=== PATIENT | female | born 1945 ===

== ENCOUNTER 2016-10-20 12:12 | Emergency (ER) | payer MEDICARE, OTHER ==
[2016-10-20 12:17] VITALS: TEMP 98
[2016-10-20 12:18] VITALS: BMI 39.8
--- NOTE | 2016-10-20 12:37 | ED PDOC ---
HPI: General Adult Time Seen by Provider: 10/20/16 12:26 Chief Complaint (Nursing): Chest Pain Chief Complaint (Provider): palpitations History Per: Patient History/Exam Limitations: no limitations Additional Complaint(s): 71yo female comes to the ED complaining of palpitations since yesterday. States this has happened in the past. Denies shortness of breath. Unchanged after walking. She had nausea yesterday but not today. No vomit, neck pain. Patient thinks she might be anxious today but denies depression. PMD: Jaron Major Cardiology: Harry Past Medical History Reviewed: Historical Data, Nursing Documentation, Vital Signs Vital Signs: Last Vital Signs Temp 98.0 F 10/20/16 12:17 Pulse 74 10/20/16 12:26 Resp 16 10/20/16 12:17 BP 134/69 10/20/16 12:17 Pulse Ox 100 10/20/16 13:43 - Medical History PMH: Asthma, Atrial Fibrillation, Back Problems, Bronchitis, Cardia Arrhythmia, CVA (with right-sided deficit), Dementia (per old chart), Diabetes, HTN, Hypercholesterolemia, Malignancy (ovarian cancer x2), Seizures (last was 1 year ago) Denies: Hepatitis, HIV, Chronic Kidney Disease, Sexually Transmitted Disease - Surgical History Surgical History: Appendectomy, Cholecystectomy - Family History Family History: States: Unknown Family Hx - Immunization History Hx Influenza Vaccination: Yes - Home Medications Home Medications: Ambulatory Orders Medication Instructions Recorded Albuterol Sulfate [Proair 90 mcg IH PRN PRN 06/02/16 Respiclick] Amiodarone [Cordarone] 200 mg PO DAILY 06/02/16 Amlodipine/Valsartan [Exforge 5 1 tab PO DAILY 06/02/16 mg-160 mg] Ammonium Lactate 12% [Lac-Hydrin] 1 appl TP BID 06/02/16 Atorvastatin Calcium 10 mg PO DAILY 06/02/16 Carvedilol [Coreg] 25 mg PO Q12 06/02/16 Fluticasone/Salmeterol 250/50 1 dsk IH PRN PRN 06/02/16 [Advair Diskus] Gabapentin [Neurontin] 300 mg PO TID 06/02/16 Insulin Glargine, Recombina 1 unit SC HS 06/02/16 [Lantus] Insulin Human Isophane (NPH) 15 unit SC BID 06/02/16 [Novolin N] LORazepam [Ativan] 1 mg PO Q12 06/02/16 Levetiracetam [Keppra] 1,000 mg PO Q12 06/02/16 Metformin HCl [Glucophage] 1,000 mg PO BID 06/02/16 Omeprazole 20 mg PO DAILY 06/02/16 Phenazopyridine HCl [Pyridium] 100 mg PO TID 06/02/16 Rivaroxaban [Xarelto] 20 mg PO DAILY 06/02/16 - Allergies Allergies/Adverse Reactions: Allergies Allergy/AdvReac Type Severity Reaction Status Date / Time No Known Allergies Allergy Verified 08/31/16 09:52 Review of Systems ROS Statement: Except As Marked, All Systems Reviewed And Found Negative Cardiovascular: Positive for: Palpitations Respiratory: Negative for: Shortness of Breath Gastrointestinal: Positive for: Nausea. Negative for: Vomiting Musculoskeletal: Negative for: Neck Pain Psych: Negative for: Depression Physical Exam - Reviewed Nursing Documentation Reviewed: Yes Vital Signs Reviewed: Yes - Physical Exam Appears: Positive for: Well, Non-toxic, No Acute Distress Head Exam: Positive for: ATRAUMATIC, NORMAL INSPECTION, NORMOCEPHALIC Skin: Positive for: Warm, Dry Eye Exam: Positive for: EOMI, PERRL Cardiovascular/Chest: Positive for: Regular Rate, Rhythm Respiratory: Positive for: Normal Breath Sounds. Negative for: Rales, Rhonchi, Wheezing Gastrointestinal/Abdominal: Positive for: Normal Exam, Soft. Negative for: Tenderness Extremity: Positive for: Normal ROM - Laboratory Results Result Diagrams: 10/20/16 12:48 10/20/16 12:48 - ECG O2 Sat by Pulse Oximetry: 100 (RA) Pulse Ox Interpretation: Normal Medical Decision Making Medical Decision Makin EKG, labs ordered. Disposition - Clinical Impression Clinical Impression: Heart palpitations - Patient ED Disposition Is Patient to be Admitted: No Doctor Will See Patient In The: Office Counseled Patient/Family Regarding: Diagnosis, Need For Followup - Disposition Referrals: [facility] [Outside] [facility] [Outside] Disposition: Routine/Home Disposition Time: 14:19 Condition: STABLE Instructions: Palpitations (ED) Print Language: SAMI - POA Present On Arrival: None Additional Comments - Additional Comments Additional Comments: Scribe Attestation: Documented by Abe Koehler acting as a scribe for Iman Coy MD. Provider Scribe Attestation: All medical record entries made by the Scribe were at my direction and personally dictated by me. I have reviewed the chart and agree that the record accurately reflects my personal performance of the history, physical exam, medical decision making, and the department course for this patient. I have also personally directed, reviewed, and agree with the discharge instructions and disposition.
[2016-10-20 13:18] LABS: BLOOD UREA NITROGEN 14 mg/dl (7-17); CALCIUM 10.4 mg/dL (8.4-10.2); CARBON DIOXIDE 27 mmol/L (22-30); CHLORIDE 102 mmol/L (98-107); GFR AFRICAN-AMERICAN > 60; GLUCOSE,RANDOM 175 mg/dL (65-105); POTASSIUM 4.3 MMOL/L (3.6-5.0); SODIUM 143 mmol/l (132-148)
[2016-10-20 13:24] LABS: BASO # 0.1 K/uL (0.0-0.2); BASO % 0.6 % (0.0-2.0); EOS # 0.1 K/uL (0.0-0.7); EOS % 1.1 % (0.0-4.0); HEMATOCRIT 42.5 % (34.0-47.0); LYMPH # 2.2 K/uL (1.0-4.3); LYMPH % 18.9 % (20.0-40.0); MEAN CELL VOLUME 89.7 fl (81.0-99.0); MEAN CORPUSCULAR HEMOGLOBIN 29.6 pg (27.0-31.0); MEAN CORPUSCULAR HGB CONC 32.9 g/dL (33.0-37.0); MEAN PLATELET VOLUME 8.9 fl (7.2-11.7); MONO # 0.8 K/uL (0.0-0.8); MONO % 7.1 % (0.0-10.0); NEUT # 8.6 K/uL (1.8-7.0); NEUT % 72.3 % (50.0-75.0); NRBC % 0.1 % (0.0-0.0); RED CELL DISTRIBUTION WIDTH 13.2 % (11.5-14.5); WHITE BLOOD COUNT 11.9 K/uL (4.8-10.8)
[2016-10-20 14:29] VITALS: BP 132/62; PULSE 64; RESP 18; O2SAT 99
--- NOTE | 2016-10-21 08:26 | CARD ---
APPROVED REPORT EKG Measurement Heart [id number] <Conclusion> Sinus rhythm with 1st degree AV block Left axis deviation Low voltage QRS Septal infarct, age undetermined Abnormal ECG
== END 2016-10-20 14:29 | disposition home or self-care (01) ==
LOC: H.ER 12:12
DX: R00.2 Palpitations (principal); R07.9 Chest pain, unspecified; E11.9 Type 2 diabetes mellitus without complications; E78.00 Pure hypercholesterolemia, unspecified; F03.90 Unspecified dementia, unspecified severity, without behavioral disturbance, psychotic disturbance, mood disturbance, and anxiety; I10 Essential (primary) hypertension; I44.0 Atrioventricular block, first degree; J45.909 Unspecified asthma, uncomplicated; Z79.01 Long term (current) use of anticoagulants; Z79.4 Long term (current) use of insulin; Z85.43 Personal history of malignant neoplasm of ovary; Z86.73 Personal history of transient ischemic attack (TIA), and cerebral infarction without residual deficits; R11.0 Nausea

== ENCOUNTER 2016-11-23 12:26 | Observation (INO) | payer MEDICARE, OTHER ==
[2016-11-23 12:26] VITALS: BMI 39.8
[2016-11-23] MEDS ORDERED: Iohexol 240 (50 ml) ONE (13:32)
[2016-11-23] MEDS ORDERED: Iohexol 240 (50 ml) PO ONE (13:33)
[2016-11-23] MEDS ORDERED: Sodium Chloride 0.9% 1,000 ML IV ONE (13:35)
--- NOTE | 2016-11-23 13:53 | ED PDOC ---
HPI: Abdomen Time Seen by Provider: 11/23/16 12:43 Chief Complaint (Nursing): Abdominal Pain History Per: Patient History/Exam Limitations: no limitations Onset/Duration Of Symptoms: Gradual (since last night) Current Symptoms Are (Timing): Still Present Severity: Mild Location Of Pain/Discomfort: Diffuse Quality Of Discomfort: Dull Associated Symptoms: Nausea, Vomiting. denies: Fever, Chills, Diarrhea, Back Pain, Chest Pain, Constipation, Urinary Symptoms Exacerbating Factors: None Alleviating Factors: None Last Bowel Movement: Today Additional History Per: Patient Additional Complaint(s): brought in by ems c/o abd pain and vomited x7 since last. diffuse crampy abd pain. pt's son was admitted in hospital last night for same complaints. no trauma Past Medical History Reviewed: Historical Data, Nursing Documentation, Vital Signs Vital Signs: Last Vital Signs Temp 98.4 F 11/23/16 12:30 Pulse 85 11/23/16 12:30 Resp 19 11/23/16 12:30 BP 159/76 H 11/23/16 12:30 Pulse Ox 98 11/23/16 15:10 - Medical History PMH: Asthma, Atrial Fibrillation, Back Problems, Bronchitis, Cardia Arrhythmia, CVA (with right-sided deficit), Dementia (per old chart), Diabetes, HTN, Hypercholesterolemia, Malignancy (ovarian cancer x2), Seizures (last was 1 year ago) Denies: Hepatitis, HIV, Chronic Kidney Disease, Sexually Transmitted Disease - Surgical History Surgical History: Appendectomy, Cholecystectomy - Family History Family History: States: Unknown Family Hx - Living Arrangements Living Arrangements: With Family - Social History Current smoker - smoking cessation education provided: No - Immunization History Hx Influenza Vaccination: Yes - Home Medications Home Medications: Ambulatory Orders Medication Instructions Recorded Albuterol Sulfate [Proair 90 mcg IH PRN PRN 06/02/16 Respiclick] Amiodarone [Cordarone] 200 mg PO DAILY 06/02/16 Amlodipine/Valsartan [Exforge 5 1 tab PO DAILY 06/02/16 mg-160 mg] Ammonium Lactate 12% [Lac-Hydrin] 1 appl TP BID 06/02/16 Atorvastatin Calcium 10 mg PO DAILY 06/02/16 Carvedilol [Coreg] 25 mg PO Q12 06/02/16 Fluticasone/Salmeterol 250/50 1 dsk IH PRN PRN 06/02/16 [Advair Diskus] Gabapentin [Neurontin] 300 mg PO TID 06/02/16 Insulin Glargine, Recombina 1 unit SC HS 06/02/16 [Lantus] Insulin Human Isophane (NPH) 15 unit SC BID 06/02/16 [Novolin N] LORazepam [Ativan] 1 mg PO Q12 06/02/16 Levetiracetam [Keppra] 1,000 mg PO Q12 06/02/16 Metformin HCl [Glucophage] 1,000 mg PO BID 06/02/16 Omeprazole 20 mg PO DAILY 06/02/16 Phenazopyridine HCl [Pyridium] 100 mg PO TID 06/02/16 Rivaroxaban [Xarelto] 20 mg PO DAILY 06/02/16 - Allergies Allergies/Adverse Reactions: Allergies Allergy/AdvReac Type Severity Reaction Status Date / Time No Known Allergies Allergy Verified 08/31/16 09:52 Review of Systems ROS Statement: Except As Marked, All Systems Reviewed And Found Negative Cardiovascular: Negative for: Chest Pain, Palpitations Respiratory: Negative for: Cough, Shortness of Breath Gastrointestinal: Positive for: Nausea, Vomiting, Abdominal Pain. Negative for : Diarrhea, Constipation, Hematochezia, Hematemesis, Rectal Pain Genitourinary Female: Negative for: Dysuria Musculoskeletal: Negative for: Neck Pain, Shoulder Pain Neurological: Negative for: Weakness, Numbness Physical Exam - Reviewed Nursing Documentation Reviewed: Yes Vital Signs Reviewed: Yes - Physical Exam Appears: Positive for: Well, No Acute Distress Head Exam: Positive for: ATRAUMATIC, NORMAL INSPECTION, NORMOCEPHALIC Skin: Positive for: Normal Color, Warm, Dry Neck: Positive for: Normal, Painless ROM, Supple Cardiovascular/Chest: Positive for: Regular Rate, Rhythm Respiratory: Positive for: Normal Breath Sounds Gastrointestinal/Abdominal: Positive for: Normal Exam, Bowel Sounds, Soft. Negative for: Tenderness Back: Positive for: Normal Inspection. Negative for: L CVA Tenderness, R CVA Tenderness Extremity: Positive for: Normal ROM. 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 Negative for: Motor/Sensory Deficits - Laboratory Results Result Diagrams: 11/23/16 13:55 11/23/16 13:55 - ECG ECG: Positive for: Interpreted By Me ECG Rhythm: Positive for: Normal QRS, Normal ST Segment, Sinus Rhythm Interpretation Of Abn EK nsr, no st changes no change when compared to 10/20 O2 Sat by Pulse Oximetry: 98 Pulse Ox Interpretation: Normal - Radiology X-Ray: Interpreted by Me X-Ray Interpretation: No Acute Disease - Progress Re-evaluation Time: 15:46 Condition: Improved Disposition - Clinical Impression Clinical Impression: Pericarditis - Patient ED Disposition Is Patient to be Admitted: Yes Counseled Patient/Family Regarding: Studies Performed, Diagnosis, Need For Followup - Disposition Disposition Time: 17:46 Condition: STABLE - Pt Status Changed To: Hospital Disposition Of: Observation - POA Present On Arrival: None
[2016-11-23 14:28] LABS: BASO % 0.2 % (0.0-2.0); EOS # 0.2 K/uL (0.0-0.7); HEMATOCRIT 45.6 % (34.0-47.0); LYMPH # 1.1 K/uL (1.0-4.3); LYMPH % 7.4 % (20.0-40.0); MEAN CELL VOLUME 90.1 fl (81.0-99.0); MEAN CORPUSCULAR HEMOGLOBIN 29.3 pg (27.0-31.0); MEAN CORPUSCULAR HGB CONC 32.5 g/dL (33.0-37.0); MEAN PLATELET VOLUME 9.5 fl (7.2-11.7); MONO # 1.1 K/uL (0.0-0.8); NEUT # 12.7 K/uL (1.8-7.0); NEUT % 84.4 % (50.0-75.0); PLATELET COUNT 254 K/uL (130-400); RED CELL DISTRIBUTION WIDTH 13.2 % (11.5-14.5)
[2016-11-23 14:30] LABS: RBC URINE 2 /hpf (0-3); URINE BILIRUBIN NEGATIVE (NEGATIVE); URINE BLOOD NEGATIVE (NEGATIVE); URINE COLOR YELLOW (YELLOW); URINE GLUCOSE (UA) NEG (Normal); URINE KETONE TRACE mg/dL (NEGATIVE); URINE LEUKOCYTE ESTERASE NEG Leu/uL (Negative); URINE PROTEIN 100 mg/dL (NEGATIVE); URINE UROBILINOGEN 0.2-1.0 mg/dL (0.2-1.0); WBC URINE 1 /hpf (0-5)
[2016-11-23 14:30] LABS: ALB/GLOB RATIO 1.5 (1.0-2.1); ALKALINE PHOSPHATASE 70 U/L (38-126); ALT/SGPT 25 U/L (9-52); AMYLASE 77 U/L (30-110); AST/SGOT 19 U/L (14-36); BILIRUBIN,TOTAL 0.5 mg/dl (0.2-1.3); BLOOD UREA NITROGEN 11 mg/dl (7-17); CALCIUM 9.8 mg/dL (8.4-10.2); CARBON DIOXIDE 28 mmol/L (22-30); CHLORIDE 100 mmol/L (98-107); GFR AFRICAN-AMERICAN > 60; GLUCOSE,RANDOM 189 mg/dL (65-105); LIPASE 198 U/L (23-300); POTASSIUM 4.1 MMOL/L (3.6-5.0); SODIUM 141 mmol/l (132-148); TOTAL PROTEIN 8.1 G/DL (6.3-8.2)
[2016-11-23 15:37] LABS: NEUTROPHIL 82 % (42-75); REACTIVE LYMPHOCYTES 1 % (0-0); TOTAL CELLS COUNTED 100
--- NOTE | 2016-11-23 15:46 | RAD ---
PROCEDURE: CHEST RADIOGRAPH, 1 VIEW HISTORY: abd pain COMPARISON: None available. FINDINGS: LUNGS: The lungs are well inflated and clear. PLEURA: No pneumothorax or pleural fluid seen. CARDIOVASCULAR: There is persistent moderate cardiomegaly. Atherosclerotic aortic arch calcifications are present. . OSSEOUS STRUCTURES: No significant abnormalities. VISUALIZED UPPER ABDOMEN: Normal. OTHER FINDINGS: None. IMPRESSION: No active pulmonary disease.
[2016-11-23] MEDS ORDERED: Iohexol 300 50 ML ONE (15:55)
[2016-11-23] MEDS ORDERED: Sodium Chloride 0.9% 50 ML IV ONE (15:55)
--- NOTE | 2016-11-23 17:02 | CT ---
PROCEDURE: CT Abdomen and Pelvis with contrast HISTORY: abd pain and vomiting COMPARISON: None. TECHNIQUE: Contrast dose: 95 cc of Omnipaque 300 Radiation dose: Total exam DLP = 1068 mGy-cm. This CT exam was performed using one or more of the following dose reduction techniques: Automated exposure control, adjustment of the mA and/or kV according to patient size, and/or use of iterative reconstruction technique. FINDINGS: LOWER THORAX: Small to moderate-sized pericardial effusion with cardiomegaly. Small hiatal hernia. LIVER: Unremarkable. No gross lesion or ductal dilatation. GALLBLADDER AND BILE DUCTS: Cholecystectomy. PANCREAS: Unremarkable. No gross lesion or ductal dilatation. SPLEEN: Unremarkable. ADRENALS: Unremarkable. No mass. KIDNEYS AND URETERS: Unremarkable. No hydronephrosis. No solid mass. VASCULATURE: Unremarkable. No aortic aneurysm. BOWEL: Colonic diverticulosis and a roughly 2 centimeter duodenal diverticulum. No obstruction. No gross mural thickening. APPENDIX: Normal appendix. PERITONEUM: Unremarkable. No free fluid. No free air. LYMPH NODES: Unremarkable. No enlarged lymph nodes. BLADDER: Unremarkable. REPRODUCTIVE: Hysterectomy. BONES: No acute fracture. OTHER FINDINGS: None. IMPRESSION: Small to moderate-sized pericardial effusion. Duodenal and colonic diverticulosis. Cholecystectomy.
[2016-11-23] MEDS ORDERED: PRO AIR HFA 8.5GM INHALER(FOR OR USE ONLY) IH PRN (18:22)
[2016-11-23] MEDS ORDERED: Fluticasone-Salmeterol 250-50mcg Diskus IH SCH (18:30)
[2016-11-23 19:46] VITALS: TEMP 98
[2016-11-23] MEDS ORDERED: Glucagon Recombinant 1 mg Inj IM PRN (20:09)
[2016-11-23] MEDS ORDERED: Dextrose 50% SYRINGE Inj (50 ml) IV PRN (20:09)
--- NOTE | 2016-11-23 20:25 | CP.PCM.HP ---
History of Present Illness - History of Present Illness History of Present Illness: Pt is a 71 y/o female with an extensive medical history of A-fib, CVA with residual right sided weakness, diabetes(insulin dependent), HTN, HLD and seizures, presenting to ED with cc of abdominal pain with associate nausea, vomiting and diarrhea. 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 pt at that time did not have any symptoms, pt reports her symptoms started a couple of hours after breakfast. Denies any chest pain, sob, dizziness, visual changes. describes abdominal pain as crampy and diffuse and some urinary frequency PCP- Dr. Major Present on Admission - Present on Admission Any Indicators Present on Admission: Yes History of Uncontrolled Diabetes: Yes Review of Systems - Review of Systems All systems: reviewed and no additional remarkable complaints except Review of Systems: per HPI Past Patient History - Infectious Disease Hx of Infectious Diseases: None - Past Medical History & Family History Past Medical History?: Yes - Past Social History Smoking Status: Former Smoker - CARDIAC Hx Atrial Fibrillation: Yes Hx Cardia Arrhythmia: Yes Hx Hypercholesterolemia: Yes Hx Hypertension: Yes - PULMONARY Hx Asthma: Yes Hx Bronchitis: Yes - NEUROLOGICAL Hx Dementia: Yes (per old chart) Hx Seizures: Yes (last was 1 year ago) - HEENT Hx HEENT Problems: No - RENAL Hx Chronic Kidney Disease: No - HEMATOLOGICAL/ONCOLOGICAL Hx Human Immunodeficiency Virus (HIV): No - INTEGUMENTARY Hx Dermatological Problems: No - MUSCULOSKELETAL/RHEUMATOLOGICAL Hx Musculoskeletal Disorders: No Hx Falls: Yes - GASTROINTESTINAL Hx Gastrointestinal Disorders: No - GENITOURINARY/GYNECOLOGICAL Hx Sexually Transmitted Disorders: No - PSYCHIATRIC Hx Psychophysiologic Disorder: No Hx Substance Use: No - SURGICAL HISTORY Hx Appendectomy: Yes Hx Cholecystectomy: Yes - ANESTHESIA Hx Anesthesia: Yes Hx Anesthesia Reactions: No Hx Malignant Hyperthermia: No Meds Allergies/Adverse Reactions: Allergies Allergy/AdvReac Type Severity Reaction Status Date / Time No Known Allergies Allergy Verified 08/31/16 09:52 Physical Exam - Constitutional Appears: Non-toxic, No Acute Distress - Head Exam Head Exam: NORMOCEPHALIC - Eye Exam Eye Exam: Normal appearance - ENT Exam ENT Exam: Mucous Membranes Dry - Respiratory Exam Respiratory Exam: Clear to Auscultation Bilateral, NORMAL BREATHING PATTERN. absent: Rhonchi, Wheezes - Cardiovascular Exam Cardiovascular Exam: REGULAR RHYTHM, +S1, +S2 - GI/Abdominal Exam GI & Abdominal Exam: Normal Bowel Sounds, Soft, Tenderness - Extremities Exam Extremities exam: Negative for: calf tenderness, pedal edema - Neurological Exam Neurological exam: Alert, CN II-XII Intact, Oriented x3 Results - Vital Signs Recent Vital Signs: Last Vital Signs Temp 98.0 F 11/23/16 19:35 Pulse 96 H 11/23/16 19:35 Resp 13 11/23/16 19:35 BP 139/57 L 11/23/16 19:35 Pulse Ox 96 11/23/16 19:35 - Labs Result Diagrams: 11/23/16 13:55 11/23/16 13:55 Assessment & Plan - Assessment and Plan (Free Text) Assessment: Pt is a 71 y/o female with an extensive medical history of A-fib, CVA with residual right sided weakness, diabetes(insulin dependent), HTN, HLD and seizures, being admitted for Pericarditis Plan: 1.Pericarditis most likely due to viral gastroenteritis pt is presenting with Echo ordered pericardial effusion noted on CT abdomen and pelvis Consider cardiology consult troponin negative Monitor 2. Viral Gastroenteritis IVF fluids Zofran for nausea pain management as ordered 3. Insulin Dependent Diabetes Accucheck SSI Monitor 4. A-fib Home meds resumed Xarelto Monitor 5. All home medications resumed 6. Diet- bland diet 7.DVT prophylaxis- Pt already on Xarelton
[2016-11-23] MEDS ORDERED: Sodium Chloride 0.9% 1,000 ML IV SCH (20:30)
[2016-11-23] MEDS ORDERED: Insulin Detemir 100 Units/ml Inj SC SCH (22:00)
[2016-11-23] MEDS ORDERED: Insulin Regular 100 units/ml SC SCH (22:00)
[2016-11-23 23:06] VITALS: BP 133/62; PULSE 75; RESP 20; O2SAT 97
--- NOTE | 2016-11-24 08:24 | CARD ---
APPROVED REPORT EKG Measurement Heart [id number] <Conclusion> Sinus rhythm with 1st degree AV block Left axis deviation Low voltage QRS Inferior infarct, age undetermined Cannot rule out Anterior infarct, age undetermined Abnormal ECG
== END 2016-11-24 00:26 | disposition left against medical advice (07) ==
LOC: H.ER 12:26 → H.ERHOLD 17:26
PROVIDERS: ADMIT Family Medicine; ATTEND Family Medicine
DX: I31.9 Disease of pericardium, unspecified (principal); I48.91 Unspecified atrial fibrillation; I10 Essential (primary) hypertension; E11.9 Type 2 diabetes mellitus without complications; E78.5 Hyperlipidemia, unspecified; E78.00 Pure hypercholesterolemia, unspecified; K52.9 Noninfective gastroenteritis and colitis, unspecified; E11.8 Type 2 diabetes mellitus with unspecified complications; I69.351 Hemiplegia and hemiparesis following cerebral infarction affecting right dominant side; F03.90 Unspecified dementia, unspecified severity, without behavioral disturbance, psychotic disturbance, mood disturbance, and anxiety; J45.909 Unspecified asthma, uncomplicated; Z79.01 Long term (current) use of anticoagulants; Z79.4 Long term (current) use of insulin
CPT/HCPCS: 71010; 74177; 80053; 81003; 82150; 82948; 83690; 84484; 85025; 93005; 96361; 96374; 96376; 99284; G0378; J2270; J7040; Q9966; Q9967

== ENCOUNTER 2016-11-25 16:59 | Inpatient (IN) | payer MEDICARE, OTHER ==
[2016-11-25 16:59] VITALS: BMI 39.8
[2016-11-25] MEDS ORDERED: Sodium Chloride 0.9% 1,000 ML IV STA (17:26)
--- NOTE | 2016-11-25 17:29 | ED PDOC ---
HPI: Abdomen Time Seen by Provider: 11/25/16 17:11 Chief Complaint (Nursing): GI Problem Chief Complaint (Provider): Vomiting and diarrhea History Per: Patient History/Exam Limitations: no limitations Onset/Duration Of Symptoms: Days Outside of [place] travel?: No Additional Complaint(s): Pt. with nausea and vomit, diarrhea nonbloody since 11/23/16. Here for it and admitted. Pt. decided to AMA as there were no beds on the floor and pt. was a bed hold. Pt. still has symptoms of cramping abd pain all over, nausea, vomit, diarrhea. No weakness, headaches, numbness, tingles, headaches, dizziness, chest pain, dyspnea. No back pain, dysuria. No fever. Son has same exact symptoms. Past Medical History Reviewed: Nursing Documentation, Vital Signs Vital Signs: Last Vital Signs Temp 98.9 F 11/25/16 17:01 Pulse 74 11/25/16 17:01 Resp 16 11/25/16 17:01 BP 176/72 H 11/25/16 17:01 Pulse Ox 100 11/25/16 18:40 - Medical History PMH: Asthma, Atrial Fibrillation, Back Problems, Bronchitis, Cardia Arrhythmia, CVA (with right-sided deficit), Dementia (per old chart), Diabetes, HTN, Hypercholesterolemia, Malignancy (ovarian cancer x2), Seizures (last was 1 year ago) Denies: Hepatitis, HIV, Chronic Kidney Disease, Sexually Transmitted Disease - Surgical History Surgical History: Appendectomy, Cholecystectomy - Family History Family History: States: Unknown Family Hx - Living Arrangements Living Arrangements: With Family - Social History Current smoker - smoking cessation education provided: No Alcohol: None Drugs: Denies - Immunization History Hx Influenza Vaccination: Yes - Home Medications Home Medications: Ambulatory Orders Medication Instructions Recorded Albuterol Sulfate [Proair 2 puff IH Q4H PRN 06/02/16 Respiclick] Amiodarone [Cordarone] 200 mg PO DAILY 06/02/16 Amlodipine/Valsartan [Exforge 5 1 tab PO DAILY 06/02/16 mg-160 mg] Atorvastatin Calcium 10 mg PO HS 06/02/16 Carvedilol [Coreg] 25 mg PO Q12 06/02/16 Fluticasone/Salmeterol 250/50 1 puff IH Q12H 06/02/16 [Advair Diskus] Gabapentin [Neurontin] 300 mg PO BID 06/02/16 Insulin Glargine, Recombina 25 unit SC HS 06/02/16 [Lantus] Metformin HCl [Glucophage] 1,000 mg PO BID 06/02/16 Rivaroxaban [Xarelto] 20 mg PO HS 06/02/16 Cyanocobalamin [Vitamin B12 1000 1,000 mcg PO DAILY 11/23/16 mcg Tab] Insulin Lispro [humALOG] 15 unit SC BID 11/23/16 Risperidone [Risperdal] 0.5 mg PO HS 11/23/16 Sertraline [Zoloft] 75 mg PO HS 11/23/16 levETIRAcetam [Keppra] 1,000 mg PO Q12H 11/23/16 - Allergies Allergies/Adverse Reactions: Allergies Allergy/AdvReac Type Severity Reaction Status Date / Time No Known Allergies Allergy Verified 08/31/16 09:52 Review of Systems ROS Statement: Except As Marked, All Systems Reviewed And Found Negative Gastrointestinal: Positive for: Nausea, Vomiting, Abdominal Pain, Diarrhea Physical Exam - Reviewed Nursing Documentation Reviewed: Yes Vital Signs Reviewed: Yes - Physical Exam Appears: Positive for: Non-toxic, No Acute Distress Head Exam: Positive for: ATRAUMATIC, NORMAL INSPECTION, NORMOCEPHALIC Skin: Positive for: Normal Color, Warm, DRY Eye Exam: Positive for: EOMI, Normal appearance, PERRL ENT: Positive for: Normal ENT Inspection Neck: Positive for: Normal, Painless ROM Cardiovascular/Chest: Positive for: Regular Rate, Rhythm Respiratory: Positive for: CNT, Normal Breath Sounds Gastrointestinal/Abdominal: Positive for: Bowel Sounds, Soft, Tenderness (mild diffuse). Negative for: Distended, Guarding Back: Positive for: Normal Inspection. Negative for: L CVA Tenderness, R CVA Tenderness Extremity: Positive for: Normal ROM. Negative for: Tenderness, Pedal Edema Neurologic/Psych: Positive for: Alert, Oriented - Laboratory Results Result Diagrams: 11/25/16 18:18 - ECG ECG: Positive for: Interpreted By Me, Viewed By Me ECG Rhythm: Positive for: Nonspecific Changes O2 Sat by Pulse Oximetry: 100 Pulse Ox Interpretation: Normal - Progress ED Course And Treament: CT from 11/23 small to moderate pericardial effusion. No acute abd/pelvis pathology. 1851: Stable. Spoke with Dr. Reid. Will admit. Further eval for pericardial effusion. Disposition - Clinical Impression Clinical Impression: Pericardial effusion, Nausea, Diarrhea, Vomiting - Patient ED Disposition Is Patient to be Admitted: Yes Counseled Patient/Family Regarding: Studies Performed, Diagnosis - Disposition Disposition Time: 18:52 Condition: FAIR - Pt Status Changed To: Hospital Disposition Of: Observation - POA Present On Arrival: Poor Glycemic Control
[2016-11-25 18:29] LABS: BASO % 0.5 % (0.0-2.0); EOS # 0.2 K/uL (0.0-0.7); EOS % 2.4 % (0.0-4.0); HEMATOCRIT 41.3 % (34.0-47.0); LYMPH # 1.7 K/uL (1.0-4.3); LYMPH % 23.2 % (20.0-40.0); MEAN CELL VOLUME 90.8 fl (81.0-99.0); MEAN CORPUSCULAR HEMOGLOBIN 29.7 pg (27.0-31.0); MEAN CORPUSCULAR HGB CONC 32.7 g/dL (33.0-37.0); MONO # 0.9 K/uL (0.0-0.8); MONO % 12.1 % (0.0-10.0); NEUT # 4.5 K/uL (1.8-7.0); NEUT % 61.8 % (50.0-75.0); RED CELL DISTRIBUTION WIDTH 13.2 % (11.5-14.5); WHITE BLOOD COUNT 7.3 K/uL (4.8-10.8)
[2016-11-25 18:43] LABS: ALB/GLOB RATIO 1.5 (1.0-2.1); ALKALINE PHOSPHATASE 58 U/L (38-126); ALT/SGPT 27 U/L (9-52); AST/SGOT 24 U/L (14-36); BILIRUBIN,TOTAL 0.2 mg/dl (0.2-1.3); BLOOD UREA NITROGEN 7 mg/dl (7-17); CALCIUM 9.6 mg/dL (8.4-10.2); CARBON DIOXIDE 27 mmol/L (22-30); CHLORIDE 102 mmol/L (98-107); GFR AFRICAN-AMERICAN > 60; GLUCOSE,RANDOM 231 mg/dL (65-105); LIPASE 133 U/L (23-300); SODIUM 140 mmol/l (132-148); TOTAL PROTEIN 7.1 G/DL (6.3-8.2)
--- NOTE | 2016-11-25 19:47 | CP.PCM.HP ---
History of Present Illness - History of Present Illness History of Present Illness: CC: Nausea, vomiting, diarrhea, mild LEFT chest discomfort 71F last seen and worked up in the ED 11/23 for above symptoms and found to have a mild pericardial effusion without other acute findings on CT abd/pelvis, but patient got frustrated with waiting and decided to leave. Reports symptoms started 5 days ago with stomach discomfort that has since improved but developed into worsening nausea, vomiting (3-4x/day, whitish), and non-bloody diarrhea (6-7x/day). She denies associated fevers, chills, dyspnea, palpitations. However, she reports burning on urination, only tolerating "a little bit of bread" and that her son has had similar symptoms for which he was hospitalized. She denies any antibiotic in the past 3 months and her last clinic visit was 08/17/2016. PSH: Open cholecystectomy, OLGA PMH: A-fib (Dr Muhammad, last visit 1 yr ago), HTN, DM, Vertigo, Epilepsy(Last seizure >1yr ago), HLD, Asthma, Uterine Ca Smoke/etOH/Drugs: 1-2 cigarettes/day, social, denies ALL: NKDA MARCO A: See Med Rec ED COURSE VSS: 37.2- 74- 176/72- 16- 100 CBC: wnl CMP: wnl Trop #1: Neg Lipase: wnl EKG: SR, 1st degree AV block, no acute changes when compared to 11/23/16 Bentyl x1, Zofran x1, NS x1 bolus Present on Admission - Present on Admission Any Indicators Present on Admission: Yes History of DVT/PE: No History of Uncontrolled Diabetes: Yes Review of Systems - Review of Systems All systems: reviewed and no additional remarkable complaints except - Gastrointestinal Gastrointestinal: Diarrhea, Nausea, Vomiting - Genitourinary Genitourinary: Dysuria Past Patient History - Infectious Disease Hx of Infectious Diseases: None - Past Medical History & Family History Past Medical History?: Yes - Past Social History Alcohol: None Drugs: Denies - CARDIAC Hx Atrial Fibrillation: Yes Hx Cardia Arrhythmia: Yes Hx Hypercholesterolemia: Yes Hx Hypertension: Yes - PULMONARY Hx Asthma: Yes Hx Bronchitis: Yes - NEUROLOGICAL Hx Dementia: Yes (per old chart) Hx Seizures: Yes (last was 1 year ago) - HEENT Hx HEENT Problems: No - RENAL Hx Chronic Kidney Disease: No - HEMATOLOGICAL/ONCOLOGICAL Hx Human Immunodeficiency Virus (HIV): No - INTEGUMENTARY Hx Dermatological Problems: No - MUSCULOSKELETAL/RHEUMATOLOGICAL Hx Musculoskeletal Disorders: No Hx Falls: Yes - GASTROINTESTINAL Hx Gastrointestinal Disorders: No - GENITOURINARY/GYNECOLOGICAL Hx Sexually Transmitted Disorders: No - PSYCHIATRIC Hx Psychophysiologic Disorder: No Hx Substance Use: No - SURGICAL HISTORY Hx Appendectomy: Yes Hx Cholecystectomy: Yes - ANESTHESIA Hx Anesthesia: Yes Hx Anesthesia Reactions: No Hx Malignant Hyperthermia: No Meds Allergies/Adverse Reactions: Allergies Allergy/AdvReac Type Severity Reaction Status Date / Time No Known Allergies Allergy Verified 08/31/16 09:52 Physical Exam - Constitutional Appears: Well, Non-toxic, No Acute Distress - Head Exam Head Exam: ATRAUMATIC, NORMAL INSPECTION - Eye Exam Eye Exam: EOMI, Normal appearance - ENT Exam ENT Exam: Mucous Membranes Moist, Normal Exam - Neck Exam Neck exam: Positive for: Full Rom, Normal Inspection. Negative for: Lymphadenopathy - Respiratory Exam Respiratory Exam: Clear to Auscultation Bilateral, NORMAL BREATHING PATTERN. absent: Decreased Breath Sounds, Prolonged Expiratory Phase, Rales, Rhonchi, Wheezes - Cardiovascular Exam Cardiovascular Exam: REGULAR RHYTHM. absent: Gallop (No muffled heart sounds), JVD - GI/Abdominal Exam GI & Abdominal Exam: Normal Bowel Sounds, Soft. absent: Distended, Guarding, Hernia, Rebound - Extremities Exam Extremities exam: Positive for: full ROM, normal capillary refill, normal inspection (Evidence of changes c/w chronic venous stasis with bronzing), pedal pulses present. Negative for: calf tenderness, pedal edema - Neurological Exam Neurological exam: Alert, Oriented x3 - Psychiatric Exam Psychiatric exam: Normal Affect, Normal Mood - Skin Skin Exam: Normal Color, Warm Results - Vital Signs Recent Vital Signs: Last Vital Signs Temp 37.2 C 11/25/16 17:01 Pulse 74 11/25/16 17:01 Resp 16 11/25/16 17:01 BP 176/72 H 11/25/16 17:01 Pulse Ox 100 11/25/16 18:53 - Labs Result Diagrams: 11/25/16 18:18 11/25/16 18:18 Assessment & Plan (1) Nausea vomiting and diarrhea Assessment and Plan: Laboratory studies, clinical exam are wnl and do not reflect 5 days of N/V/ diarrhea. However, with positive exposure to family member with similar symptoms possibly a gastroenteritis, but NOT c/w obstructive etiology. Currently asymptomatic at time of evaluation. - Re-check labs in AM - HHD w/Mod CHO - Stool culture/blood/leukocytes - Zofran PRN Status: Acute (2) Pericardial effusion Assessment and Plan: Incidental finding on CT abd/pelvis on prior visit. Although pt c/o mild chest discomfort with a negative Troponin and no acute EKG findings more likely secondary to viral etiology with current GI symptoms. Pt remains hemodynamically stable and no pericarditis symptoms. Will pursue echo and consult for her director building Dr. Muhammad. - Admit to Telemetry - CONT telemetry - Repeat EKG in AM - Echocardiogram in AM - Complete Troponin series - Cardiology Consult (Dr Muhammad) Status: Acute (3) Chest pain Assessment and Plan: Initial troponin negative and no acute EKG changes compared to 11/23/16. Patient does have hiatal hernia and GERD that may lead to similar symptoms, unlikely ACS but will complete Troponin series. - Troponin series - Admit to Telemetry - CONT telemetry - Rpt EKG in AM Status: Acute (4) DVT prophylaxis Assessment and Plan: Patient in Xarelto Status: Acute (5) Dysuria Assessment and Plan: Patient c/o burning on urination, prior UA 11/23 was negative. - Urinalysis - Urine C&S Status: Acute (6) Depressed Assessment and Plan: Stable, c/w home medications Status: Chronic (7) Anxiety Assessment and Plan: Stable, c/w home medications Status: Chronic (8) Asthma Assessment and Plan: Stable, c/w Advair and albuterol Status: Chronic (9) Atrial fibrillation Assessment and Plan: Sinus currently, c/w Amiodarone/Coreg/Xarelto Status: Chronic (10) Hyperlipidemia Assessment and Plan: Stable, c/w home medications Status: Chronic (11) Hypertension Assessment and Plan: Controlled, c/w home medications Status: Chronic (12) Seizure disorder Assessment and Plan: Last event over a year ago, c/w Keppra Status: Chronic (13) Type 2 diabetes mellitus Assessment and Plan: Controlled at this time. - ACHS Accu-checks - Lantus HS - Novolin N BID - Metformin 1000 BIDWM - Hypoglycemic Bundle Status: Chronic
[2016-11-25] MEDS ORDERED: Dextrose 50% SYRINGE Inj (50 ml) IV PRN (20:05)
[2016-11-25] MEDS ORDERED: Glucagon Recombinant 1 mg Inj IM PRN (20:05)
[2016-11-25] MEDS ORDERED: Albuterol HFA 90 mcg/actuation (8 g) IH PRN (20:18)
[2016-11-25] MEDS ORDERED: Alum-Mag Hydrox-Simethicone Susp (30 mL) PO ONE (21:57)
[2016-11-25] MEDS: Fluticasone-Salmeterol 250-50mcg Diskus IH SCH (21:59)
[2016-11-25] MEDS: Insulin Detemir 100 Units/ml Inj SC SCH (22:21)
[2016-11-26 03:06] LABS: CHLORIDE 102 mmol/L (98-107); SODIUM 141 mmol/l (132-148)
[2016-11-26 03:09] LABS: BLOOD UREA NITROGEN 5 mg/dl (7-17); CARBON DIOXIDE 34 mmol/L (22-30); GFR AFRICAN-AMERICAN > 60; GLUCOSE,RANDOM 155 mg/dL (65-105)
[2016-11-26 03:10] LABS: CALCIUM 9.8 mg/dL (8.4-10.2)
[2016-11-26 06:55] LABS: BASO % 0.6 % (0.0-2.0); EOS # 0.2 K/uL (0.0-0.7); EOS % 2.8 % (0.0-4.0); HEMATOCRIT 38.8 % (34.0-47.0); LYMPH # 1.8 K/uL (1.0-4.3); LYMPH % 30.1 % (20.0-40.0); MEAN CELL VOLUME 90.5 fl (81.0-99.0); MEAN CORPUSCULAR HEMOGLOBIN 29.9 pg (27.0-31.0); MEAN PLATELET VOLUME 8.7 fl (7.2-11.7); MONO # 0.9 K/uL (0.0-0.8); MONO % 15.2 % (0.0-10.0); NEUT # 3.1 K/uL (1.8-7.0); NEUT % 51.3 % (50.0-75.0); RED CELL DISTRIBUTION WIDTH 13.2 % (11.5-14.5); WHITE BLOOD COUNT 6.1 K/uL (4.8-10.8)
[2016-11-26 07:08] LABS: RBC URINE 3 /hpf (0-3); URINE BILIRUBIN NEGATIVE (NEGATIVE); URINE BLOOD SMALL (NEGATIVE); URINE COLOR STRAW (YELLOW); URINE GLUCOSE (UA) NEG (Normal); URINE KETONE NEGATIVE (NEGATIVE); URINE LEUKOCYTE ESTERASE NEG Leu/uL (Negative); URINE PROTEIN NEGATIVE (NEGATIVE); URINE UROBILINOGEN 0.2-1.0 mg/dL (0.2-1.0); WBC URINE < 1 /hpf (0-5)
--- NOTE | 2016-11-26 08:54 | CARD ---
APPROVED REPORT EKG Measurement Heart [id number] <Conclusion> Sinus rhythm with 1st degree AV block Left axis deviation Low voltage QRS Inferior infarct, age undetermined Poor R wave progression Abnormal ECG
[2016-11-26] MEDS ORDERED: AMLODIPINE PO SCH (09:00)
[2016-11-26] MEDS ORDERED: VALSARTAN PO SCH (09:00)
[2016-11-26] MEDS ORDERED: Albuterol-Ipratrop 3 mg / 0.5 (3 ml) UD INH STA (09:08)
[2016-11-26] MEDS: Fluticasone-Salmeterol 250-50mcg Diskus IH SCH ×2 (09:42→20:49)
[2016-11-26] MEDS: Pantoprazole 40 mg EC Tab PO SCH (09:48)
[2016-11-26] MEDS: Insulin Lispro (humaLOG) 100 Units/ml Inj SC SCH ×2 (10:32→16:51)
--- NOTE | 2016-11-26 20:01 | CP.PCM.PN ---
Subjective - Date & Time of Evaluation Date of Evaluation: 11/26/16 Time of Evaluation: 08:20 - Subjective Subjective: Patient seen and examined sitting in chair near bed, comfortable, ambulating without difficulty. Denies SOB, chest pain, vomiting, headache or dizziness. Had nausea when taking deep breaths during physical exam. Otherwise is tolerating PO diet and has no concerns or complaints at this time. Objective - Vital Signs/Intake and Output Vital Signs (last 24 hours): Temp Pulse Resp BP Pulse Ox 97.8 F 58 L 18 117/71 96 11/26/16 17:00 11/26/16 17:00 11/26/16 17:00 11/26/16 17:00 11/26/16 17:00 - Medications Medications: Current Medications Albuterol (Ventolin Hfa 90 Mcg/Actuation (8 G)) 2 puff IH Q4H PRN PRN Reason: Shortness of Breath Last Admin: 11/26/16 09:00 Dose: 2 puff Amiodarone HCl (Cordarone) 200 mg PO DAILY [facility] Last Admin: 11/26/16 09:43 Dose: 200 mg Amlodipine Besylate (Norvasc) 5 mg PO DAILY [facility] Last Admin: 11/26/16 09:48 Dose: 5 mg Atorvastatin Calcium (Lipitor) 10 mg PO HS [facility] Last Admin: 11/25/16 22:03 Dose: 10 mg Carvedilol (Coreg) 25 mg PO Q12 [facility] Last Admin: 11/26/16 09:44 Dose: 25 mg Dextrose (Dextrose 50% Inj) 0 ml IV STAT PRN; Protocol PRN Reason: Hyglycemia Protocol Dextrose (Glutose 15) 0 gm PO ONCE PRN; Protocol PRN Reason: Hypoglycemia Protocol Gabapentin (Neurontin) 300 mg PO TID [facility] Last Admin: 11/26/16 16:51 Dose: 300 mg Glucagon (Glucagen Diagnostic Kit) 0 mg IM STAT PRN; Protocol PRN Reason: Hypoglycemia Protocol Insulin Detemir (Levemir) 25 units SC HS [facility] Last Admin: 11/25/16 22:21 Dose: 25 units Insulin Human Lispro (Humalog) 15 units SC BID [facility] Last Admin: 11/26/16 16:51 Dose: 15 units Levetiracetam (Keppra) 1,000 mg PO Q12H [facility] Last Admin: 11/26/16 09:47 Dose: 1,000 mg Metformin HCl (Glucophage) 1,000 mg PO BID [facility] Last Admin: 11/26/16 16:52 Dose: 1,000 mg Pantoprazole Sodium (Protonix Ec Tab) 40 mg PO DAILY [facility] Last Admin: 11/26/16 09:48 Dose: 40 mg Risperidone (Risperdal Tab) 0.5 mg PO [facility] Last Admin: 11/25/16 22:01 Dose: 0.5 mg Rivaroxaban (Xarelto) 20 mg PO [facility] PRN Reason: Protocol Last Admin: 11/25/16 22:01 Dose: 20 mg Fluticasone/Salmeterol (Advair Diskus 250/50) 1 puff IH Q12H [facility] Last Admin: 11/26/16 09:42 Dose: 1 puff Sertraline HCl (Zoloft) 50 mg PO [facility] Last Admin: 11/25/16 22:02 Dose: 50 mg Valsartan (Diovan) 160 mg PO DAILY [facility] Last Admin: 11/26/16 09:45 Dose: 160 mg - Constitutional Appears: Well, No Acute Distress - Head Exam Head Exam: ATRAUMATIC, NORMOCEPHALIC - Eye Exam Eye Exam: EOMI Pupil Exam: PERRL - ENT Exam ENT Exam: Mucous Membranes Moist - Neck Exam Neck Exam: Full ROM - Respiratory Exam Respiratory Exam: Chest Wall Tenderness (mild tenderness to palpation in left upper chest), Clear to Ausculation Bilateral, NORMAL BREATHING PATTERN. absent : Rales, Rhonchi - Cardiovascular Exam Cardiovascular Exam: +S1, +S2. absent: Rubs, Murmur - GI/Abdominal Exam GI & Abdominal Exam: Soft (obese), Normal Bowel Sounds. absent: Distended, Tenderness - Extremities Exam Extremities Exam: Full ROM. absent: Pedal Edema, Tenderness - Back Exam Back Exam: absent: CVA tenderness (L), CVA tenderness (R) - Neurological Exam Neurological Exam: Alert, Awake, CN II-XII Intact, Normal Gait, Oriented x3 - Psychiatric Exam Psychiatric exam: Normal Affect, Normal Mood - Skin Skin Exam: Dry, Intact, Normal Color Assessment and Plan - Assessment and Plan (Free Text) Assessment: 71 yr old F admitted for nausea, vomiting, diarrhea with mild chest discomfort, with PMHx of A-fib (Dr Muhammad, last visit 1 yr ago), HTN, DM, Vertigo, Epilepsy(Last seizure >1yr ago), HLD, Asthma, Uterine Ca. Patient improving, vomiting and diarrhea resolved, 1 episode of nausea this AM when taking deep breaths on physical exam, otherwise tolerating PO diet, ambulating without difficulty. 1. Nausea, vomiting and diarrhea -vomiting and diarrhea resolved, nausea improved -Zofran 4mg IV once this AM for 1 episode of nausea -UA negative for UTI -pt tolerating PO diet 2. Pericardial effusion -Incidental finding on CT abd/pelvis on prior visit. Although pt c/o mild chest discomfort with a negative Troponin and no acute EKG findings more likely secondary to viral etiology with current GI symptoms. Pt remains hemodynamically stable and no pericarditis symptoms. Will pursue echo and consult for her ---cardiology consult Dr. Muhammad appreciated - f/u results Echocardiogram -Troponin negative x 3 3. Chest pain -improved -troponin negative x 3 -no acute EKG changes compared to 11/23/16 -chest pain reproducible on palpation, Hx of hiatal hernia and GERD that may lead to similar symptoms, unlikely ACS 4. Dysuria -improved - Urinalysis negative for UTI 5. Asthma -chronic, stable -c/w Advair and albuterol 6. Atrial fibrillation -controlled, chronic -pt currently in Sinus rhythm , -c/w Amiodarone/Coreg/Xarelto 7. Hyperlipidemia -Stable, chronic -c/w Atorvastatin 10 mg PO QHS 8. Hypertension -uncontrolled -c/w home medications 9. Seizure disorder -stable, Last event over a year ago -c/w Keppra 1,000 mg PO Q12 10. Type 2 diabetes mellitus -Controlled - ACHS Accu-checks - Lantus HS - Novolin N BID - Metformin 1,000 mg PO BID with food - Hypoglycemic protocol 11. Depression -Stable, denies SI/HI -c/w home medications 12. Anxiety -Stable -c/w home medications 13. DVT prophylaxis -Continue with Xarelto -pt ambulating
[2016-11-26] MEDS: Insulin Detemir 100 Units/ml Inj SC SCH (22:05)
[2016-11-27] MEDS: Fluticasone-Salmeterol 250-50mcg Diskus IH SCH (09:30)
[2016-11-27] MEDS: Insulin Lispro (humaLOG) 100 Units/ml Inj SC SCH (09:32)
[2016-11-27] MEDS: Pantoprazole 40 mg EC Tab PO SCH (09:32)
[2016-11-27 12:22] VITALS: O2SAT 96
--- NOTE | 2016-11-27 12:41 | CARD ---
APPROVED REPORT EXAM: Two-dimensional and M-mode echocardiogram with Doppler and color Doppler. Other Information Quality : GoodRhythm : NSR INDICATION Pericardial Effusion 2D DIMENSIONS IVSd1.22 (0.7-1.1cm)LVDd4.32 (3.9-5.9cm) LVOT Diameter1.92 (1.8-2.4cm)PWd1.36 (0.7-1.1cm) IVSs1.77 (0.8-1.2cm)LVDs3.34 (2.5-4.0cm) FS (%) 22.6 %PWs1.68 (0.8-1.2cm) M-Mode DIMENSIONS Left Atrium (MM)5.03 (2.5-4.0cm)IVSd0.97 (0.7-1.1cm) Aortic Root3.13 (2.2-3.7cm)LVDd5.95 (4.0-5.6cm) Aortic Cusp Exc.1.85 (1.5-2.0cm)PWd0.97 (0.7-1.1cm) IVSs1.73 cmFS (%) 55 % LVDs2.70 (2.0-3.8cm)PWs1.60 cm Aortic Valve AoV Peak Sbhkxpqu219.9cm/sAoV VTI31.4cmAO Peak GR.7mmHg LVOT Peak Xfxnpnvk91.1cm/Brielle Mean GR.4mmHgAVA (VMAX)0.87cm2 Mitral Valve MV E Oifkckfo07.6cm/sMV DECEL [id number] A Igepzaoh26.9cm/s MV DTI26tcA/A ratio0.9MVA (PHT)3.49cm2 TDI Lateral E' Peak V6.93cm/sMedial E' Peak V8.07cm/sE/Lateral E'10.2 E/Medial E'8.7 Pulmonary Valve PV Peak Nlfdomgo60.8cm/s Tricuspid Valve TR Peak Ytlbvlws160vd/sRAP MPIDMSRN26qcJbDK Peak Gr.15mmHg UGGR84sfLt LEFT VENTRICLE The left ventricle is normal size. There is normal left ventricular wall thickness. Left ventricle systolic function is normal. The Ejection Fraction is 55-60%. There is normal LV segmental wall motion. Transmitral Doppler flow pattern is Grade I-abnormal relaxation pattern. RIGHT VENTRICLE The right ventricle is normal size. There is normal right ventricular wall thickness. The right ventricular systolic function is normal. ATRIA The left atrium size is normal. The right atrium size is normal. AORTIC VALVE The aortic valve is normal in structure and function. No aortic regurgitation is present. There is no aortic valvular stenosis. MITRAL VALVE The mitral valve is normal in structure and function. There is no evidence of mitral valve prolapse. There is no mitral valve stenosis. There is no mitral valve regurgitation noted. TRICUSPID VALVE The tricuspid valve is normal in structure. There is trace tricuspid regurgitation. Right ventricular systolic pressure is estimated at 25 mmHg. There is no pulmonary hypertension. PULMONIC VALVE The pulmonary valve is normal in structure and function. There is no pulmonic valvular regurgitation. GREAT VESSELS The aortic root is normal in size. The IVC is normal in size and collapses >50% with inspiration. PERICARDIAL EFFUSION There is a small-moderate circumferential pericardial effusion. There is no evidence of diastolic compression of the right atrium pericardial effusion. <Conclusion> There is a small-moderate circumferential pericardial effusion. There is no evidence of diastolic compression of the right atrium pericardial effusion. There is normal LV segmental wall motion. Left ventricle systolic function is normal. The Ejection Fraction is 55-60%. Transmitral Doppler flow pattern is Grade I-abnormal relaxation pattern.
--- NOTE | 2016-11-27 15:45 | CP.PCM.PN ---
Subjective - Date & Time of Evaluation Date of Evaluation: 11/27/16 Time of Evaluation: 15:30 - Subjective Subjective: I was notified by Robby Puente that Cardiology Dr. Winter had called the unit. As per Robby Puente's conversation with Dr. Winter patient is cleared for discharge. The patient is to follow up with Dr. Winter as an outpatient on 12/02/16. Dr. Kashif. [place] Objective - Vital Signs/Intake and Output Vital Signs (last 24 hours): Temp Pulse Resp BP Pulse Ox 98.3 F 61 18 132/75 96 11/27/16 12:21 11/27/16 12:21 11/27/16 12:21 11/27/16 12:21 11/27/16 12:21 - Medications Medications: Current Medications Albuterol (Ventolin Hfa 90 Mcg/Actuation (8 G)) 2 puff IH Q4H PRN PRN Reason: Shortness of Breath Last Admin: 11/26/16 09:00 Dose: 2 puff Amiodarone HCl (Cordarone) 200 mg PO DAILY [facility] Last Admin: 11/27/16 09:39 Dose: 200 mg Amlodipine Besylate (Norvasc) 5 mg PO DAILY [facility] Last Admin: 11/27/16 09:31 Dose: 5 mg Atorvastatin Calcium (Lipitor) 10 mg PO HS [facility] Last Admin: 11/26/16 22:05 Dose: 10 mg Carvedilol (Coreg) 25 mg PO Q12 [facility] Last Admin: 11/27/16 09:38 Dose: 25 mg Dextrose (Dextrose 50% Inj) 0 ml IV STAT PRN; Protocol PRN Reason: Hyglycemia Protocol Dextrose (Glutose 15) 0 gm PO ONCE PRN; Protocol PRN Reason: Hypoglycemia Protocol Gabapentin (Neurontin) 300 mg PO TID [facility] Last Admin: 11/27/16 12:53 Dose: 300 mg Glucagon (Glucagen Diagnostic Kit) 0 mg IM STAT PRN; Protocol PRN Reason: Hypoglycemia Protocol Insulin Detemir (Levemir) 25 units SC HS [facility] Last Admin: 11/26/16 22:05 Dose: 25 units Insulin Human Lispro (Humalog) 15 units SC BID [facility] Last Admin: 11/27/16 09:32 Dose: 15 units Levetiracetam (Keppra) 1,000 mg PO Q12H [facility] Last Admin: 11/27/16 09:32 Dose: 1,000 mg Metformin HCl (Glucophage) 1,000 mg PO BID [facility] Last Admin: 11/27/16 09:31 Dose: 1,000 mg Pantoprazole Sodium (Protonix Ec Tab) 40 mg PO DAILY [facility] Last Admin: 11/27/16 09:32 Dose: 40 mg Risperidone (Risperdal Tab) 0.5 mg PO HS [facility] Last Admin: 11/26/16 22:05 Dose: 0.5 mg Rivaroxaban (Xarelto) 20 mg PO HS [facility] PRN Reason: Protocol Last Admin: 11/26/16 22:04 Dose: 20 mg Fluticasone/Salmeterol (Advair Diskus 250/50) 1 puff IH Q12H [facility] Last Admin: 11/27/16 09:30 Dose: 1 puff Sertraline HCl (Zoloft) 50 mg PO HS [facility] Last Admin: 11/26/16 22:08 Dose: 50 mg Valsartan (Diovan) 160 mg PO DAILY [facility] Last Admin: 11/27/16 09:31 Dose: 160 mg
[2016-11-27 16:05] VITALS: BP 151/75; PULSE 63; RESP 20; TEMP 97.9
--- NOTE | 2016-11-27 22:28 | CP.PCM.DIS ---
Provider - Provider Date of Admission: 11/26/16 16:52 Attending physician: Petra Mcmillan MD Consults: glazing machine operator: Time Spent in preparation of Discharge (in minutes): 60 Diagnosis - Discharge Diagnosis (1) Nausea vomiting and diarrhea Status: Acute (2) Pericardial effusion Status: Acute (3) Chest pain Status: Acute (4) Dysuria Status: Acute (5) Asthma Status: Chronic (6) Atrial fibrillation Status: Chronic (7) Hyperlipidemia Status: Chronic (8) Hypertension Status: Chronic (9) Diabetes mellitus type 2 in obese Status: Acute (10) Generalized seizure Status: Acute (11) Depressed Status: Chronic Hospital Course - Lab Results Lab Results: Most Recent Lab Values WBC 6.1 K/uL (4.8-10.8) 11/26/16 05:30 RBC 4.29 Mil/uL (3.80-5.20) 11/26/16 05:30 Hgb 12.8 g/dL (12.0-16.0) 11/26/16 05:30 Hct 38.8 % (34.0-47.0) 11/26/16 05:30 MCV 90.5 fl (81.0-99.0) 11/26/16 05:30 MCH 29.9 pg (27.0-31.0) 11/26/16 05:30 MCHC 33.0 g/dL (33.0-37.0) 11/26/16 05:30 RDW 13.2 % (11.5-14.5) 11/26/16 05:30 Plt Count 175 K/uL (130-400) 11/26/16 05:30 MPV 8.7 fl (7.2-11.7) 11/26/16 05:30 Neut % (Auto) 51.3 % (50.0-75.0) 11/26/16 05:30 Lymph % (Auto) 30.1 % (20.0-40.0) 11/26/16 05:30 [facility] % (Auto) 15.2 % (0.0-10.0) H 11/26/16 05:30 Eos % (Auto) 2.8 % (0.0-4.0) 11/26/16 05:30 Baso % (Auto) 0.6 % (0.0-2.0) 11/26/16 05:30 Neut # 3.1 K/uL (1.8-7.0) 11/26/16 05:30 Lymph # 1.8 K/uL (1.0-4.3) 11/26/16 05:30 [facility] # 0.9 K/uL (0.0-0.8) H 11/26/16 05:30 Eos # 0.2 K/uL (0.0-0.7) 11/26/16 05:30 Baso # 0.0 K/uL (0.0-0.2) 11/26/16 05:30 Sodium 141 mmol/l (132-148) 11/26/16 02:00 Potassium 4.0 MMOL/L (3.6-5.0) 11/26/16 02:00 Chloride 102 mmol/L (98-107) 11/26/16 02:00 Carbon Dioxide 34 mmol/L (22-30) H 11/26/16 02:00 Anion Gap 9 (10-20) L 11/26/16 02:00 BUN 5 mg/dl (7-17) L 11/26/16 02:00 Creatinine 0.5 mg/dL (0.7-1.2) L 11/26/16 02:00 Est GFR ( Amer) > 60 11/26/16 02:00 Est GFR (Non-Af Amer) > 60 11/26/16 02:00 POC Glucose (mg/dL) 101 mg/dL (65-110) 11/27/16 11:48 Random Glucose 155 mg/dL (65-105) H 11/26/16 02:00 Hemoglobin A1c 8.2 % (4.2-6.5) H 11/26/16 11:07 Calcium 9.8 mg/dL (8.4-10.2) 11/26/16 02:00 Total Bilirubin 0.2 mg/dl (0.2-1.3) 11/25/16 18:18 AST 24 U/L (14-36) 11/25/16 18:18 ALT 27 U/L (9-52) 11/25/16 18:18 Alkaline Phosphatase 58 U/L (38-126) 11/25/16 18:18 Troponin I < 0.0120 ng/mL (0.00-0.120) 11/26/16 09:50 Total Protein 7.1 G/DL (6.3-8.2) 11/25/16 18:18 Albumin 4.3 g/dL (3.5-5.0) 11/25/16 18:18 Globulin 2.8 gm/dL (2.2-3.9) 11/25/16 18:18 Albumin/Globulin Ratio 1.5 (1.0-2.1) 11/25/16 18:18 Lipase 133 U/L (23-300) 11/25/16 18:18 Urine Color Straw (YELLOW) 11/26/16 06:58 Urine Clarity Clear (Clear) 11/26/16 06:58 Urine pH 6.0 (5.0-8.0) 11/26/16 06:58 Ur Specific House 1.006 (1.003-1.030) 11/26/16 06:58 Urine Protein Negative mg/dL (NEGATIVE) 11/26/16 06:58 Urine Glucose (UA) Neg mg/dL (Normal) 11/26/16 06:58 Urine Ketones Negative mg/dL (NEGATIVE) 11/26/16 06:58 Urine Blood Small (NEGATIVE) 11/26/16 06:58 Urine Nitrate Negative (NEGATIVE) 11/26/16 06:58 Urine Bilirubin Negative (NEGATIVE) 11/26/16 06:58 Urine Urobilinogen 0.2-1.0 mg/dL (0.2-1.0) 11/26/16 06:58 Ur Leukocyte Esterase Neg Gage/uL (Negative) 11/26/16 06:58 Urine RBC (Auto) 3 /hpf (0-3) 11/26/16 06:58 Urine Microscopic WBC < 1 /hpf (0-5) 11/26/16 06:58 Ur Squamous Epith Cells < 1 /hpf (0-5) 11/26/16 06:58 Stool Occult Blood Negative (NEGATIVE) 11/26/16 Unknown Stool Leukocytes, Qual Negative (NEGATIVE) 11/26/16 Unknown - Hospital Course Hospital Course: 71 year old female with PMHx of A-fib (Dr Muhammad, last visit 1 yr ago), HTN, DM, Vertigo, Epilepsy(Last seizure >1yr ago), HLD, Asthma, Uterine Ca admitted for nausea, vomiting, diarrhea with mild chest discomfort and pericardial effusion on CT abdomen noted. No EKG changes and negative 3x troponin. Echo was done and showed mild to moderate pericardial effusion noted. Patient's glazing machine operator was seen today and cleared to discharge to home. Patient was seen and examined at bedside this morning. Patient denies chest pain and her GI symptoms resolved. Discharge Exam - Head Exam Head Exam: ATRAUMATIC, NORMOCEPHALIC - Eye Exam Eye Exam: EOMI, Normal appearance, PERRL Pupil Exam: NORMAL ACCOMODATION, PERRL - ENT Exam ENT Exam: Mucous Membranes Moist - Neck Exam Neck exam: Full Rom - Respiratory Exam Respiratory Exam: Clear to PA & Lateral, NORMAL BREATHING PATTERN - Cardiovascular Exam Cardiovascular Exam: REGULAR RHYTHM, RRR, +S1, +S2 - GI/Abdominal Exam GI & Abdominal Exam: Normal Bowel Sounds, Soft - Extremities Exam Extremities exam: normal capillary refill, normal inspection - Back Exam Back exam: NORMAL INSPECTION - Neurological Exam Neurological exam: Alert, CN II-XII Intact, Oriented x3 - Psychiatric Exam Psychiatric exam: Normal Affect, Normal Mood - Skin Skin Exam: Dry, Intact, Normal Color, Warm Discharge Plan - Follow Up Plan Condition: FAIR Disposition: HOME/ ROUTINE Instructions: Pericardial Effusion (DC) Additional Instructions: follow up [facility] within 3-5 days Referrals: Jaron Major MD [Staff Provider] -
--- NOTE | 2016-11-28 09:17 | CP.PCM.CON ---
History of Present Illness - History of Present Illness History of Present Illness: I was requested to see the patient for cardiovascular evaluation. Mrs Zayas is a 71 year old lady well known to our service, who was admitted to the hospital with complaints of nausea, abdominal pain, and diarrhea. The patient was incidentally found to have objective evidence of heart failure for which she was advised admission for further treatment. Presently, she has been ambulating without chest pain or dyspnea. The patient is anxious to be discharged home. Review of Systems - Constitutional Constitutional: As Per HPI - EENT Eyes: As Per HPI - Gastrointestinal Gastrointestinal: As Per HPI, Diarrhea, Loose Stools Past Patient History - Infectious Disease Hx of Infectious Diseases: None - Past Medical History & Family History Past Medical History?: Yes - Past Social History Alcohol: None Drugs: Denies - CARDIAC Hx Atrial Fibrillation: Yes Hx Cardia Arrhythmia: Yes Hx Hypercholesterolemia: Yes Hx Hypertension: Yes - PULMONARY Hx Asthma: Yes Hx Bronchitis: Yes - NEUROLOGICAL Hx Dementia: Yes (per old chart) Hx Seizures: Yes (last was 1 year ago) - HEENT Hx HEENT Problems: No - RENAL Hx Chronic Kidney Disease: No - HEMATOLOGICAL/ONCOLOGICAL Hx Human Immunodeficiency Virus (HIV): No - INTEGUMENTARY Hx Dermatological Problems: No - MUSCULOSKELETAL/RHEUMATOLOGICAL Hx Musculoskeletal Disorders: No Hx Falls: Yes - GASTROINTESTINAL Hx Gastrointestinal Disorders: No - GENITOURINARY/GYNECOLOGICAL Hx Sexually Transmitted Disorders: No - PSYCHIATRIC Hx Psychophysiologic Disorder: No Hx Substance Use: No - SURGICAL HISTORY Hx Appendectomy: Yes Hx Cholecystectomy: Yes - ANESTHESIA Hx Anesthesia: Yes Hx Anesthesia Reactions: No Hx Malignant Hyperthermia: No Meds Home Medications: Home Medication List Medication Instructions Recorded Confirmed Type Albuterol HFA [Ventolin HFA 90 2 puff IH Q4H PRN inhaler 11/27/16 Rx mcg/actuation (8 g)] Pantoprazole [Protonix EC Tab] 40 mg PO DAILY ect 11/27/16 Rx Sertraline [Zoloft] 50 mg PO HS tab 11/27/16 Rx Allergies/Adverse Reactions: Allergies Allergy/AdvReac Type Severity Reaction Status Date / Time No Known Allergies Allergy Verified 08/31/16 09:52 Physical Exam - Constitutional Appears: Well, Toxic Additional comments: moderately obese. - Head Exam Head Exam: ATRAUMATIC - Eye Exam Eye Exam: EOMI, Normal appearance Pupil Exam: NORMAL ACCOMODATION - ENT Exam ENT Exam: Mucous Membranes Moist - Respiratory Exam Respiratory Exam: Decreased Breath Sounds, NORMAL BREATHING PATTERN - Cardiovascular Exam Cardiovascular Exam: Irregular Rhythm, +S1, +S2, Systolic Murmur - GI/Abdominal Exam GI & Abdominal Exam: Normal Bowel Sounds - Rectal Exam Rectal Exam: Deferred - Extremities Exam Extremities exam: Positive for: normal inspection - Neurological Exam Neurological exam: Alert, CN II-XII Intact, Normal Gait, Oriented x3 - Psychiatric Exam Psychiatric exam: Normal Affect - Skin Skin Exam: Normal Color, Warm Results - Vital Signs Recent Vital Signs: Last Vital Signs Temp 97.9 F 11/27/16 16:04 Pulse 63 11/27/16 16:04 Resp 20 11/27/16 16:04 BP 151/75 H 11/27/16 16:04 Pulse Ox 96 11/27/16 16:04 - Labs Result Diagrams: 11/26/16 05:30 11/26/16 02:00 Labs: Laboratory Results - last 24 hr 11/27/16 11:48 POC Glucose (mg/dL) 101 Assessment & Plan - Assessment and Plan (Free Text) Assessment: 1. Atrial fibrillation. 2. Heart failure. 3. Hypertension. 4. Nausea. Plan: 1. Continue present cardiac medication. 2. The patient is stable cardiac malloy for discharge. 3. She will follow up in the office next week. - Date & Time Date: 11/27/16 Time: 12:00
== END 2016-11-27 16:00 | disposition home or self-care (01) | DRG 315 ==
LOC: H.ER 16:59 → H.ERHOLD 18:50 → H.TEL 20:36 → OBSVTOIN 11-26 16:52
PROVIDERS: ADMIT Family Medicine Geriatric Medicine; ATTEND Family Medicine Geriatric Medicine
DX: I31.3 Pericardial effusion (noninflammatory) (principal); I69.351 Hemiplegia and hemiparesis following cerebral infarction affecting right dominant side; I11.0 Hypertensive heart disease with heart failure; I48.91 Unspecified atrial fibrillation; G40.909 Epilepsy, unspecified, not intractable, without status epilepticus; F03.90 Unspecified dementia, unspecified severity, without behavioral disturbance, psychotic disturbance, mood disturbance, and anxiety; E11.9 Type 2 diabetes mellitus without complications; I50.9 Heart failure, unspecified; E78.5 Hyperlipidemia, unspecified; F32.9 Major depressive disorder, single episode, unspecified; E66.9 Obesity, unspecified; F41.9 Anxiety disorder, unspecified; J45.909 Unspecified asthma, uncomplicated; K21.9 Gastro-esophageal reflux disease without esophagitis; K44.9 Diaphragmatic hernia without obstruction or gangrene; Z85.42 Personal history of malignant neoplasm of other parts of uterus; E78.00 Pure hypercholesterolemia, unspecified; Z79.84 Long term (current) use of oral hypoglycemic drugs

== ENCOUNTER 2017-01-05 08:43 | Observation (INO) | payer MEDICARE, OTHER ==
[2017-01-05 08:43] VITALS: BMI 39.8
[2017-01-05 09:07] VITALS: TEMP 98
[2017-01-05] MEDS ORDERED: Sodium Chloride 0.9% 1,000 ML IV STA (09:42)
--- NOTE | 2017-01-05 09:45 | ED PDOC ---
HPI: Abdomen Time Seen by Provider: 01/05/17 09:00 Chief Complaint (Nursing): Abdominal Pain Chief Complaint (Provider): Abdominal Pain History Per: Patient History/Exam Limitations: no limitations Onset/Duration Of Symptoms: Days (x3) Current Symptoms Are (Timing): Still Present Location Of Pain/Discomfort: Epigastric (mid-epigastric) Additional Complaint(s): Swetha Zayas is a 71 year old female with a history of diabetes and hypertension, as well as a surgical history of appendectomy, cholecystectomy, and surgery for uterine cancer that presents to the ED with a chief complaint of mid-epigastric abdominal pain with associated nausea, vomiting, and diarrhea that she has been experiencing for the past three days. Patient reports that she has been staying hydrated and only vomits occasionally, and denies any fevers. Past Medical History Reviewed: Historical Data, Nursing Documentation, Vital Signs Vital Signs: Last Vital Signs Temp 98 F 01/05/17 09:05 Pulse 79 01/05/17 16:19 Resp 18 01/05/17 16:19 BP 144/75 01/05/17 16:19 Pulse Ox 98 01/05/17 16:19 - Medical History PMH: Asthma, Atrial Fibrillation, Back Problems, Bronchitis, Cardia Arrhythmia, CVA (with right-sided deficit), Dementia (per old chart), Diabetes, HTN, Hypercholesterolemia, Malignancy (ovarian cancer x2), Seizures (last was 1 year ago) Denies: Hepatitis, HIV, Chronic Kidney Disease, Sexually Transmitted Disease - Surgical History Surgical History: Appendectomy, Cholecystectomy - Family History Family History: States: Unknown Family Hx - Social History Current smoker - smoking cessation education provided: No Alcohol: None Drugs: Denies - Immunization History Hx Influenza Vaccination: Yes - Home Medications Home Medications: Ambulatory Orders Medication Instructions Recorded Albuterol Sulfate [Proair 2 puff IH Q4H PRN 06/02/16 Respiclick] Amiodarone [Cordarone] 200 mg PO DAILY 06/02/16 Amlodipine/Valsartan [Exforge 1 tab PO DAILY 06/02/16 5-160 mg Tablet] Atorvastatin Calcium 10 mg PO HS 06/02/16 Carvedilol [Coreg] 25 mg PO Q12 06/02/16 Fluticasone/Salmeterol 250/50 1 puff IH Q12H 06/02/16 [Advair Diskus 250/50] Gabapentin [Neurontin] 300 mg PO BID 06/02/16 Insulin Glargine, Recombina 25 unit SC HS 06/02/16 [Lantus] Metformin HCl [Glucophage] 1,000 mg PO BID 06/02/16 Rivaroxaban [Xarelto] 20 mg PO HS 06/02/16 Cyanocobalamin [Vitamin B12 1000 1,000 mcg PO DAILY 11/23/16 mcg Tab] Insulin Lispro [humALOG] 15 unit SC BID 11/23/16 Risperidone [Risperdal] 0.5 mg PO HS 11/23/16 Sertraline [Zoloft] 75 mg PO HS 11/23/16 levETIRAcetam [Keppra] 1,000 mg PO Q12H 11/23/16 Albuterol HFA [Ventolin HFA 90 2 puff IH Q4H PRN inhaler 11/27/16 mcg/actuation (8 g)] Pantoprazole [Protonix EC Tab] 40 mg PO DAILY ect 11/27/16 Sertraline [Zoloft] 50 mg PO HS tab 11/27/16 Famotidine [Pepcid] 20 mg PO BID PRN #10 tab 01/05/17 - Allergies Allergies/Adverse Reactions: Allergies Allergy/AdvReac Type Severity Reaction Status Date / Time No Known Allergies Allergy Verified 01/05/17 09:04 Review of Systems Constitutional: Negative for: Fever Gastrointestinal: Positive for: Nausea, Vomiting, Abdominal Pain (mid- epigastric pain), Diarrhea Physical Exam - Reviewed Nursing Documentation Reviewed: Yes Vital Signs Reviewed: Yes - Physical Exam Appears: Positive for: Non-toxic, No Acute Distress Head Exam: Positive for: ATRAUMATIC, NORMOCEPHALIC Skin: Positive for: Normal Color, Warm Neck: Positive for: Normal Cardiovascular/Chest: Positive for: Regular Rate, Rhythm. Negative for: Murmur Respiratory: Positive for: Normal Breath Sounds. Negative for: Wheezing Gastrointestinal/Abdominal: Positive for: Soft, Tenderness (mild mid-epigastric tenderness). Negative for: Normal Exam Extremity: Positive for: Normal ROM Neurologic/Psych: Positive for: Alert, Oriented - Laboratory Results Result Diagrams: 01/05/17 10:28 01/05/17 11:00 - ECG O2 Sat by Pulse Oximetry: 95 (RA) Pulse Ox Interpretation: Normal Medical Decision Making Medical Decision Making: Impression: vomiting, abdominal pain rule out Gastritis Plan: * CMP * CBC * Lipase * Pepcid 20 mg IV * Zofran Inj 4 mg IV * Sodium Chloride 1000 mL at 150 mLs/hr * Reevaluation 12:00 Patient continues to have pain, is to be placed in ED Obs for further evaluation. and CT abdomen pelvic ordered for further evaluation Scribe Attestation: Documented by Gemma Pierre, acting as a scribe for Zaheer Schulz MD. Provider Scribe Attestation: All medical record entries made by the Scribe were at my direction and personally dictated by me. I have reviewed the chart and agree that the record accurately reflects my personal performance of the history, physical exam, medical decision making, and the department course for this patient. I have also personally directed, reviewed, and agree with the discharge instructions and disposition. ED OBSERVATION Date of observation admission: 01/05/17 Time of observation admission: 12:00 - Observation admission statement Patient is being placed in observation because:: need for further pain management. - Goals of Observation Goals of observation are:: improvement of pain. - Progress Note Progress Note: 01/05/17 12:00 Patient is stable but in pain. 01/05/17 12:[address] Scan A/P with PO and IV contrast. 01/05/17 14:13 Patient is waiting for CT Scan. 01/05/17 15:[address] Scan reading. 01/05/17 16:10 CT Scan A/P with PO and IV Contrast FINDINGS: LOWER THORAX: Persistent distal esophageal thickening likely esophagitis. Trace and stable, incompletely visualized pericardial effusion. LIVER: Hepatic steatosis. No focal masses. No intrahepatic bile duct dilatation or perihepatic ascites. GALLBLADDER AND BILE DUCTS: Status post cholecystectomy. No abnormality is seen in the gallbladder fossa. PANCREAS: Unremarkable. No gross lesion or ductal dilatation. SPLEEN: Unremarkable. ADRENALS: Unremarkable. No mass. KIDNEYS AND URETERS: Unremarkable. No hydronephrosis. No solid mass. VASCULATURE: Unremarkable. No aortic aneurysm. BOWEL: Diverticulosis without an acute inflammatory component or other associated pathologic process. APPENDIX: Prior appendectomy PERITONEUM: Unremarkable. No free fluid. No free air. LYMPH NODES: Unremarkable. No enlarged lymph nodes. BLADDER: Unremarkable. REPRODUCTIVE: Prior hysterectomy BONES: No acute fracture. OTHER FINDINGS: None. IMPRESSION: No acute findings related to/accounting for the clinical presentation. No significant interval change compared to the prior examination(s). Relevant findings likely related to epigastric and upper abdominal pain: Stable distal esophageal thickening likely esophagitis. ,,,,,,,,,,,,,,,,,,,,,,,,,,, Patient is feeling better and requires no further treatment in the ED. Patient was given Rx for Pepcid, and is stable for discharge home. pt tolerated po without difficulty Clinical Impression: Gastritis 01/06/17 23:18 Disposition - Clinical Impression Clinical Impression: Gastritis - Patient ED Disposition Is Patient to be Admitted: No Counseled Patient/Family Regarding: Studies Performed, Diagnosis, Rx Given - Disposition Disposition: Routine/Home Disposition Time: 16:10 Condition: IMPROVED
[2017-01-05 10:32] LABS: BASO # 0.1 K/uL (0.0-0.2); EOS # 0.2 K/uL (0.0-0.7); EOS % 1.8 % (0.0-4.0); LYMPH # 1.9 K/uL (1.0-4.3); LYMPH % 20.6 % (20.0-40.0); MEAN CELL VOLUME 90.6 fl (81.0-99.0); MEAN CORPUSCULAR HEMOGLOBIN 29.9 pg (27.0-31.0); MEAN PLATELET VOLUME 9.5 fl (7.2-11.7); MONO # 0.8 K/uL (0.0-0.8); MONO % 8.1 % (0.0-10.0); NEUT # 6.5 K/uL (1.8-7.0); NEUT % 68.5 % (50.0-75.0); NRBC % 0.2 % (0.0-0.0); RBC 5.01 Mil/uL (3.80-5.20); RED CELL DISTRIBUTION WIDTH 13.7 % (11.5-14.5); WHITE BLOOD COUNT 9.4 K/uL (4.8-10.8)
[2017-01-05 11:37] LABS: ALB/GLOB RATIO 1.5 (1.0-2.1); ALBUMIN 4.5 g/dL (3.5-5.0); ALT/SGPT 33 U/L (9-52); AST/SGOT 17 U/L (14-36); BLOOD UREA NITROGEN 11 mg/dl (7-17); CALCIUM 9.7 mg/dL (8.4-10.2); GFR AFRICAN-AMERICAN > 60; GFR NON-AFRICAN AMERICAN > 60; LIPASE 124 U/L (23-300)
[2017-01-05] MEDS ORDERED: Iohexol 240 (50 ml) PO ONE (12:37)
[2017-01-05] MEDS ORDERED: Morphine 4 MG/ML VIAL IV ONE (12:38)
[2017-01-05] MEDS ORDERED: Iohexol 240 (50 ml) ONE (12:46)
[2017-01-05] MEDS ORDERED: Iohexol 300 100 ML IJ ONE (14:59)
[2017-01-05] MEDS ORDERED: Sodium Chloride 0.9% 50 ML IV ONE (14:59)
--- NOTE | 2017-01-05 15:54 | CT ---
PROCEDURE: CT Abdomen and Pelvis with contrast HISTORY: Abdominal pain and vomiting COMPARISON: 11/23/2016 TECHNIQUE: Contrast dose: 95 cc Omnipaque 300. Radiation dose: Total exam DLP = 987.93 mGy-cm. This CT exam was performed using one or more of the following dose reduction techniques: Automated exposure control, adjustment of the mA and/or kV according to patient size, and/or use of iterative reconstruction technique. FINDINGS: LOWER THORAX: Persistent distal esophageal thickening likely esophagitis. Trace and stable, incompletely visualized pericardial effusion. LIVER: Hepatic steatosis. No focal masses. No intrahepatic bile duct dilatation or perihepatic ascites. GALLBLADDER AND BILE DUCTS: Status post cholecystectomy. No abnormality is seen in the gallbladder fossa. PANCREAS: Unremarkable. No gross lesion or ductal dilatation. SPLEEN: Unremarkable. ADRENALS: Unremarkable. No mass. KIDNEYS AND URETERS: Unremarkable. No hydronephrosis. No solid mass. VASCULATURE: Unremarkable. No aortic aneurysm. BOWEL: Diverticulosis without an acute inflammatory component or other associated pathologic process. APPENDIX: Prior appendectomy PERITONEUM: Unremarkable. No free fluid. No free air. LYMPH NODES: Unremarkable. No enlarged lymph nodes. BLADDER: Unremarkable. REPRODUCTIVE: Prior hysterectomy BONES: No acute fracture. OTHER FINDINGS: None. IMPRESSION: No acute findings related to/accounting for the clinical presentation. No significant interval change compared to the prior examination(s). Relevant findings likely related to epigastric and upper abdominal pain: Stable distal esophageal thickening likely esophagitis.
[2017-01-05 16:20] VITALS: BP 144/75; PULSE 79; RESP 18
[2017-01-06 23:18] VITALS: O2SAT 95
== END 2017-01-05 16:10 | disposition home or self-care (01) ==
LOC: H.ER 08:43 → H.EROBSV 12:38
PROVIDERS: ADMIT Emergency Medicine; ATTEND Emergency Medicine
DX: K29.70 Gastritis, unspecified, without bleeding (principal); E11.9 Type 2 diabetes mellitus without complications; E78.00 Pure hypercholesterolemia, unspecified; F03.90 Unspecified dementia, unspecified severity, without behavioral disturbance, psychotic disturbance, mood disturbance, and anxiety; I10 Essential (primary) hypertension; I48.91 Unspecified atrial fibrillation; J45.909 Unspecified asthma, uncomplicated; Z85.43 Personal history of malignant neoplasm of ovary; Z86.73 Personal history of transient ischemic attack (TIA), and cerebral infarction without residual deficits; R56.9 Unspecified convulsions; K20.9 Esophagitis, unspecified; Z85.42 Personal history of malignant neoplasm of other parts of uterus
CPT/HCPCS: 74177; 80053; 82948; 83690; 85025; 96374; 96375; 99282; G0378; J2405; J7040; Q9966; Q9967

== ENCOUNTER 2017-05-25 09:39 | Emergency (ER) | payer MEDICARE, OTHER ==
[2017-05-25 09:40] VITALS: BMI 39.8
[2017-05-25 09:44] VITALS: TEMP 97.7; O2SAT 96
[2017-05-25 09:53] VITALS: RESP 18
[2017-05-25] MEDS ORDERED: Sodium Chloride 0.9% 1,000 ML IV STA (11:17)
[2017-05-25 11:46] LABS: BASO # 0.1 K/uL (0.0-0.2); BASO % 0.7 % (0.0-2.0); EOS # 0.3 K/uL (0.0-0.7); EOS % 2.1 % (0.0-4.0); HEMATOCRIT 44.8 % (34.0-47.0); LYMPH # 1.9 K/uL (1.0-4.3); LYMPH % 14.6 % (20.0-40.0); MEAN CELL VOLUME 90.1 fl (81.0-99.0); MEAN CORPUSCULAR HEMOGLOBIN 29.7 pg (27.0-31.0); MEAN PLATELET VOLUME 8.3 fl (7.2-11.7); MONO # 1.3 K/uL (0.0-0.8); NEUT # 9.5 K/uL (1.8-7.0); NEUT % 72.6 % (50.0-75.0); NRBC % 0.1 % (0.0-0.0); RED CELL DISTRIBUTION WIDTH 12.9 % (11.5-14.5); WHITE BLOOD COUNT 13.1 K/uL (4.8-10.8)
[2017-05-25 11:59] LABS: ALB/GLOB RATIO 1.4 (1.0-2.1); ALKALINE PHOSPHATASE 71 U/L (38-126); ALT/SGPT 34 U/L (9-52); AST/SGOT 20 U/L (14-36); BILIRUBIN,TOTAL 0.6 mg/dl (0.2-1.3); BLOOD UREA NITROGEN 9 mg/dl (7-17); CALCIUM 9.9 mg/dL (8.4-10.2); CARBON DIOXIDE 28 mmol/L (22-30); CHLORIDE 104 mmol/L (98-107); GFR AFRICAN-AMERICAN > 60; GLUCOSE,RANDOM 193 mg/dL (65-105); POTASSIUM 4.2 MMOL/L (3.6-5.0); SODIUM 144 mmol/l (132-148)
--- NOTE | 2017-05-25 12:17 | ED PDOC ---
HPI: General Adult Time Seen by Provider: 05/25/17 10:30 Chief Complaint (Nursing): Cough, Cold, Congestion Chief Complaint (Provider): Vomiting, diarrhea, cough, dizziness History Per: Patient History/Exam Limitations: no limitations Onset/Duration Of Symptoms: Days Have you had recent travel within the past 21 days to any of the following countries: [place], [place], [place] or [place]?: No Current Symptoms Are (Timing): Still Present Additional History Per: Patient Additional Complaint(s): 72yo female with past medical histoof COPD, AFib, CAD, hypertension, diabetes, hypercholesterolemia, seizures, gastritis, presents to ED for evaluation of vomiting, diarrhea, cough and dizziness present for the past two weeks. Patient reports the diarrhea is watery and that she has intermittent episodes of vomiting; also reports associated diffuse, cramping abdominal pain which is present intermittently. Patient states she has a history of asthma and recently has been coughing more than usual; patient states she uses her inhaler for the cough with some relief. She also states she feels dizziness with movement. Patient denies chest pain, shortness of breath. She has no other medical complaints. Past Medical History Reviewed: Historical Data, Nursing Documentation, Vital Signs Vital Signs: Last Vital Signs Temp 97.7 F 05/25/17 09:51 Pulse 70 05/25/17 19:32 Resp 18 05/25/17 19:32 BP 150/70 05/25/17 19:32 Pulse Ox 96 05/25/17 19:32 - Medical History PMH: Asthma, Atrial Fibrillation, Back Problems, Bronchitis, Cardia Arrhythmia, CVA (with right-sided deficit), Dementia (per old chart), Diabetes, HTN, Hypercholesterolemia, Malignancy (ovarian cancer x2), Seizures (last was 1 year ago) Denies: Hepatitis, HIV, Chronic Kidney Disease, Sexually Transmitted Disease - Surgical History Surgical History: Appendectomy, Cholecystectomy - Family History Family History: States: No Known Family Hx, Unknown Family Hx - Immunization History Hx Influenza Vaccination: Yes - Home Medications Home Medications: Ambulatory Orders Medication Instructions Recorded Albuterol Sulfate [Proair 2 puff IH Q4H PRN 06/02/16 Respiclick] Amiodarone [Cordarone] 200 mg PO DAILY 06/02/16 Amlodipine/Valsartan [Exforge 1 tab PO DAILY 06/02/16 5-160 mg Tablet] Atorvastatin Calcium 10 mg PO HS 06/02/16 Carvedilol [Coreg] 25 mg PO Q12 06/02/16 Fluticasone/Salmeterol 250/50 1 puff IH Q12H 06/02/16 [Advair Diskus 250/50] Gabapentin [Neurontin] 300 mg PO BID 06/02/16 Insulin Glargine, Recombina 25 unit SC HS 06/02/16 [Lantus] Metformin HCl [Glucophage] 1,000 mg PO BID 06/02/16 Rivaroxaban [Xarelto] 20 mg PO HS 06/02/16 Cyanocobalamin [Vitamin B12 1000 1,000 mcg PO DAILY 11/23/16 mcg Tab] Insulin Lispro [humALOG] 15 unit SC BID 11/23/16 Risperidone [Risperdal] 0.5 mg PO HS 11/23/16 Sertraline [Zoloft] 75 mg PO HS 11/23/16 levETIRAcetam [Keppra] 1,000 mg PO Q12H 11/23/16 Albuterol HFA [Ventolin HFA 90 2 puff IH Q4H PRN inhaler 11/27/16 mcg/actuation (8 g)] Pantoprazole [Protonix EC Tab] 40 mg PO DAILY ect 11/27/16 Sertraline [Zoloft] 50 mg PO HS tab 11/27/16 Famotidine [Pepcid] 20 mg PO BID PRN #10 tab 01/05/17 Ciprofloxacin HCl [Cipro] 500 mg PO BID #14 tablet 05/25/17 Metronidazole [Flagyl] 500 mg PO BID #14 tablet 05/25/17 - Allergies Allergies/Adverse Reactions: Allergies Allergy/AdvReac Type Severity Reaction Status Date / Time No Known Allergies Allergy Verified 05/25/17 09:51 Review of Systems ROS Statement: Except As Marked, All Systems Reviewed And Found Negative Cardiovascular: Negative for: Chest Pain Respiratory: Positive for: Cough. Negative for: Shortness of Breath Gastrointestinal: Positive for: Nausea, Vomiting, Diarrhea Neurological: Positive for: Dizziness Physical Exam - Reviewed Nursing Documentation Reviewed: Yes Vital Signs Reviewed: Yes - Physical Exam Appears: Positive for: Non-toxic, No Acute Distress Head Exam: Positive for: ATRAUMATIC, NORMAL INSPECTION, NORMOCEPHALIC Skin: Positive for: Normal Color Eye Exam: Positive for: EOMI, PERRL Neck: Positive for: Normal, Supple Cardiovascular/Chest: Positive for: Irregularly Irregular. Negative for: Murmur Respiratory: Positive for: Wheezing (occasional). Negative for: Respiratory Distress Gastrointestinal/Abdominal: Positive for: Soft, Tenderness (epigastric and periumbilical tenderness) Back: Positive for: Normal Inspection Extremity: Positive for: Normal ROM Neurologic/Psych: Positive for: Alert, Oriented - Laboratory Results Result Diagrams: 05/25/17 11:42 05/25/17 11:42 - ECG O2 Sat by Pulse Oximetry: 96 (RA) Medical Decision Making Medical Decision Making: Time: 1116 Impression: Abdominal pain, vomiting, diarrhea, cough Differential: Colitis, enterocolitis, diverticlitis, SBO, asthma exacerbation, URI, pneumonia Plan: -- CT Abdomen w/ IV Contrast -- Labs -- IV FLuids -- Zofran 4mg IV Reassess 14:03 Abdominal/pelvic CT scan reviewed. Findings noted as follows: FINDINGS: LOWER THORAX: 6 mm subpleural right lower lobe nodule (series 5, image 3). No visible consolidation, pleural effusion, or pneumothorax. Small pericardial effusion. Small hiatal hernia. LIVER: Mild intrahepatic biliary ductal dilatation. GALLBLADDER AND BILE DUCTS: Cholecystectomy. PANCREAS: Pancreatic atrophy. SPLEEN: Unremarkable. ADRENALS: Unremarkable. KIDNEYS AND URETERS: The kidneys enhance symmetrically. No hydronephrosis or obstructing calculus identified. VASCULATURE: No aortic aneurysm. BOWEL: Stomach is nondistended. Lack of oral contrast limits evaluation for bowel pathology. Bowel loops appear within normal limits of caliber without evidence of obstruction. Rectosigmoid colonic wall thickening raises concern for acute diverticulitis; correlate clinically. Wall thickening of the colon at the level of the hepatic flexure in addition to wall thickening of the rectosigmoid colon ; correlate for possibility of colitis (i.e. infectious, inflammatory, ischemic). APPENDIX: The appendix is not identified. No secondary signs of acute appendicitis. PERITONEUM: No significant free fluid. No definite free air. LYMPH NODES: No bulky adenopathy identified. BLADDER: Under distended urinary bladder. REPRODUCTIVE: Uterus is absent consistent with hysterectomy. BONES: Degenerative changes of the spine. OTHER FINDINGS: None. IMPRESSION: Rectosigmoid colonic wall thickening raises concern for acute diverticulitis; correlate clinically. Wall thickening of the colon at the level of the hepatic flexure in addition to wall thickening of the rectosigmoid colon ; correlate for possibility of colitis (i.e. infectious, inflammatory, ischemic). Cholecystectomy. Mild intrahepatic biliary ductal dilatation. 6 mm subpleural right lower lobe pulmonary nodule. Small pericardial effusion. Additional findings as above. Scribe Attestation: Documented by Gail Desouza acting as a scribe for Tina Mcclain MD. Provider Attestation: All medical record entries made by the Scribe were at my direction and personally dictated by me. I have reviewed the chart and agree that the record accurately reflects my personal performance of the history, physical exam, medical decision making, and the department course for this patient. I have also personally directed, reviewed, and agree with the discharge instructions and disposition. Disposition - Clinical Impression Clinical Impression: Diverticulitis, Colitis, COPD (chronic obstructive pulmonary disease) - Patient ED Disposition Is Patient to be Admitted: No Doctor Will See Patient In The: Office Counseled Patient/Family Regarding: Studies Performed, Diagnosis, Need For Followup - Disposition [facility]errals[facility]] Disposition: Routine/Home Disposition Time: 15:00 Condition: GOOD Additional Instructions: Take your medications as instructed. Follow up with your PCP in 2-3 days. Prescriptions: Ciprofloxacin HCl [Cipro] 500 mg PO BID #14 tablet Metronidazole [Flagyl] 500 mg PO BID #14 tablet Instructions: Diverticulitis (DC), COPD (Chronic Obstructive Pulmonary Disease ) (ED)
--- NOTE | 2017-05-25 12:45 | RAD ---
HISTORY: cough fever COMPARISON: 11/23/2016 TECHNIQUE: Chest PA and lateral FINDINGS: LUNGS: No active pulmonary disease. PLEURA: No significant pleural effusion identified. No pneumothorax apparent. CARDIOVASCULAR: Normal. OSSEOUS STRUCTURES: No significant abnormalities. VISUALIZED UPPER ABDOMEN: Normal. OTHER FINDINGS: None. IMPRESSION: No active disease.
[2017-05-25] MEDS ORDERED: Sodium Chloride 0.9% 50 ML IV ONE (13:08)
[2017-05-25] MEDS ORDERED: Iohexol 300 100 ML IJ ONE (13:08)
--- NOTE | 2017-05-25 14:06 | CT ---
PROCEDURE: CT Abdomen and Pelvis with contrast HISTORY: abd pain vomiting diarrhea COMPARISON: CT abdomen and pelvis with contrast performed 01/05/17 TECHNIQUE: Contrast dose: 95 cc Omnipaque 300 Radiation dose: Total exam DLP = 977.68 mGy-cm. This CT exam was performed using one or more of the following dose reduction techniques: Automated exposure control, adjustment of the mA and/or kV according to patient size, and/or use of iterative reconstruction technique. FINDINGS: LOWER THORAX: 6 mm subpleural right lower lobe nodule (series 5, image 3). No visible consolidation, pleural effusion, or pneumothorax. Small pericardial effusion. Small hiatal hernia. LIVER: Mild intrahepatic biliary ductal dilatation. GALLBLADDER AND BILE DUCTS: Cholecystectomy. PANCREAS: Pancreatic atrophy. SPLEEN: Unremarkable. ADRENALS: Unremarkable. KIDNEYS AND URETERS: The kidneys enhance symmetrically. No hydronephrosis or obstructing calculus identified. VASCULATURE: No aortic aneurysm. BOWEL: Stomach is nondistended. Lack of oral contrast limits evaluation for bowel pathology. Bowel loops appear within normal limits of caliber without evidence of obstruction. Rectosigmoid colonic wall thickening raises concern for acute diverticulitis; correlate clinically. Wall thickening of the colon at the level of the hepatic flexure in addition to wall thickening of the rectosigmoid colon ; correlate for possibility of colitis (i.e. infectious, inflammatory, ischemic). APPENDIX: The appendix is not identified. No secondary signs of acute appendicitis. PERITONEUM: No significant free fluid. No definite free air. LYMPH NODES: No bulky adenopathy identified. BLADDER: Under distended urinary bladder. REPRODUCTIVE: Uterus is absent consistent with hysterectomy. BONES: Degenerative changes of the spine. OTHER FINDINGS: None. IMPRESSION: Rectosigmoid colonic wall thickening raises concern for acute diverticulitis; correlate clinically. Wall thickening of the colon at the level of the hepatic flexure in addition to wall thickening of the rectosigmoid colon ; correlate for possibility of colitis (i.e. infectious, inflammatory, ischemic). Cholecystectomy. Mild intrahepatic biliary ductal dilatation. 6 mm subpleural right lower lobe pulmonary nodule. Small pericardial effusion. Additional findings as above.
[2017-05-25 19:35] VITALS: BP 150/70; PULSE 70
--- NOTE | 2017-05-26 09:57 | CARD ---
APPROVED REPORT EKG Measurement Heart [id number] <Conclusion> Sinus rhythm with 1st degree AV block Septal infarct, age undetermined T wave abnormality, consider inferior ischemia Abnormal ECG
== END 2017-05-25 15:31 | disposition home or self-care (01) ==
LOC: H.ER 09:39
DX: K57.92 Diverticulitis of intestine, part unspecified, without perforation or abscess without bleeding (principal); K52.9 Noninfective gastroenteritis and colitis, unspecified; J44.9 Chronic obstructive pulmonary disease, unspecified; I10 Essential (primary) hypertension; E11.9 Type 2 diabetes mellitus without complications; F03.90 Unspecified dementia, unspecified severity, without behavioral disturbance, psychotic disturbance, mood disturbance, and anxiety; Z85.43 Personal history of malignant neoplasm of ovary; R56.9 Unspecified convulsions; Z90.49 Acquired absence of other specified parts of digestive tract; Z86.73 Personal history of transient ischemic attack (TIA), and cerebral infarction without residual deficits; Z79.4 Long term (current) use of insulin
CPT/HCPCS: 71020; 74177; 80053; 82948; 85025; 93005; 96360; 99282; J2405; J7040; Q9967

== ENCOUNTER 2017-06-22 12:45 | Emergency (ER) | payer MEDICARE, OTHER ==
[2017-06-22 12:51] VITALS: BMI 31.8
[2017-06-22 12:53] VITALS: BP 130/72; PULSE 70; RESP 20; TEMP 97.6; O2SAT 98
[2017-06-22] MEDS ORDERED: Sodium Chloride 0.9% 1,000 ML IV STA (13:44)
[2017-06-22] MEDS ORDERED: Albuterol-Ipratrop 3 mg / 0.5 (3 ml) UD IH STA (13:45)
[2017-06-22] MEDS ORDERED: Albuterol-Ipratrop 3 mg / 0.5 (3 ml) UD INH STA (13:45)
--- NOTE | 2017-06-22 13:47 | ED PDOC ---
HPI: CCC, URI, Sore Throat Time Seen by Provider: 06/22/17 13:26 Chief Complaint (Nursing): Abdominal Pain Chief Complaint (Provider): Cough History Per: Patient History/Exam Limitations: no limitations Additional Complaint(s): Cough, congestion, runny nose. Dyspnea/wheezes. Also epigastric pain. No back pain. Has nonbloody vomit/diarrhea. No weakness. No headaches, dizziness. No leg pain, weakness, numbness, tingles. Past Medical History Reviewed: Nursing Documentation, Vital Signs Vital Signs: Last Vital Signs Temp 97.6 F 06/22/17 12:53 Pulse 70 06/22/17 12:53 Resp 20 06/22/17 12:53 BP 130/72 06/22/17 12:53 Pulse Ox 98 06/22/17 15:27 - Medical History PMH: Asthma, Back Problems, Bronchitis, CVA (with right-sided deficit), Dementia (per old chart), Diabetes, HTN, Hypercholesterolemia, Malignancy ( ovarian cancer x2), Seizures (last was 1 year ago) Denies: Hepatitis, HIV, Chronic Kidney Disease, Sexually Transmitted Disease - Surgical History Surgical History: Appendectomy, Cholecystectomy - Family History Family History: States: Unknown Family Hx - Social History Current smoker - smoking cessation education provided: No Alcohol: None Drugs: Denies - Immunization History Hx Influenza Vaccination: Yes - Home Medications Home Medications: Ambulatory Orders Medication Instructions Recorded Albuterol Sulfate [Proair 2 puff IH Q4H PRN 06/02/16 Respiclick] Amiodarone [Cordarone] 200 mg PO DAILY 06/02/16 Amlodipine/Valsartan [Exforge 1 tab PO DAILY 06/02/16 5-160 mg Tablet] Atorvastatin Calcium 10 mg PO HS 06/02/16 Carvedilol [Coreg] 25 mg PO Q12 06/02/16 Fluticasone/Salmeterol 250/50 1 puff IH Q12H 06/02/16 [Advair Diskus 250/50] Gabapentin [Neurontin] 300 mg PO BID 06/02/16 Insulin Glargine, Recombina 25 unit SC HS 06/02/16 [Lantus] Metformin HCl [Glucophage] 1,000 mg PO BID 06/02/16 Rivaroxaban [Xarelto] 20 mg PO HS 06/02/16 Cyanocobalamin [Vitamin B12 1000 1,000 mcg PO DAILY 11/23/16 mcg Tab] Insulin Lispro [humALOG] 15 unit SC BID 11/23/16 Risperidone [Risperdal] 0.5 mg PO HS 11/23/16 Sertraline [Zoloft] 75 mg PO HS 11/23/16 levETIRAcetam [Keppra] 1,000 mg PO Q12H 11/23/16 Albuterol HFA [Ventolin HFA 90 2 puff IH Q4H PRN inhaler 11/27/16 mcg/actuation (8 g)] Pantoprazole [Protonix EC Tab] 40 mg PO DAILY ect 11/27/16 Sertraline [Zoloft] 50 mg PO HS tab 11/27/16 Famotidine [Pepcid] 20 mg PO BID PRN #10 tab 01/05/17 Ciprofloxacin HCl [Cipro] 500 mg PO BID #14 tablet 05/25/17 Metronidazole [Flagyl] 500 mg PO BID #14 tablet 05/25/17 Albuterol Sulfate [Proair Hfa] 0.09 mg IH Q6H PRN #2 inh 06/22/17 predniSONE [predniSONE Tab] 20 mg PO BID 5 Days tab 06/22/17 - Allergies Allergies/Adverse Reactions: Allergies Allergy/AdvReac Type Severity Reaction Status Date / Time No Known Allergies Allergy Verified 06/22/17 12:51 Review of Systems ROS Statement: Except As Marked, All Systems Reviewed And Found Negative ENT: Positive for: Nose Discharge, Nose Congestion Respiratory: Positive for: Cough, Shortness of Breath, Wheezing Gastrointestinal: Positive for: Nausea, Vomiting, Abdominal Pain, Diarrhea Physical Exam - Reviewed Nursing Documentation Reviewed: Yes Vital Signs Reviewed: Yes - Physical Exam Appears: Positive for: Non-toxic, No Acute Distress Head Exam: Positive for: ATRAUMATIC, NORMAL INSPECTION, NORMOCEPHALIC Skin: Positive for: Normal Color, Warm, DRY Eye Exam: Positive for: EOMI, Normal appearance, PERRL ENT: Positive for: Nasal Congestion. Negative for: Pharyngeal Erythema, Tonsillar Exudate Neck: Positive for: Normal, Painless ROM, Supple Cardiovascular/Chest: Positive for: Regular Rate, Rhythm Respiratory: Positive for: Decreased Breath Sounds, Wheezing (b/l). Negative for: Accessory Muscle Use Gastrointestinal/Abdominal: Positive for: Bowel Sounds, Soft. Negative for: Tenderness Back: Positive for: Normal Inspection. Negative for: L CVA Tenderness, R CVA Tenderness Extremity: Positive for: Normal ROM. Negative for: Tenderness, Pedal Edema Neurologic/Psych: Positive for: Alert, Oriented. Negative for: Motor/Sensory Deficits - Laboratory Results Result Diagrams: 06/22/17 14:00 06/22/17 14:00 Interpretation Of Abn Labs: 12 wbc - ECG ECG Rhythm: Positive for: Nonspecific Changes (same as old) O2 Sat by Pulse Oximetry: 98 Pulse Ox Interpretation: Normal - Radiology X-Ray: Read By Radiologist X-Ray Interpretation: No Acute Disease - Progress ED Course And Treament: 1535: Stable. AAOx3. Pain free. Tolerated PO. No dyspnea. Will dc with meds. Disposition - Clinical Impression Clinical Impression: Abdominal pain, Bronchitis - Patient ED Disposition Is Patient to be Admitted: No Counseled Patient/Family Regarding: Studies Performed, Need For Followup, Rx Given - Disposition Referrals: [facility] [Outside] - 06/23/17 Disposition: Routine/Home Disposition Time: 15:37 Condition: STABLE Additional Instructions: Return if not better in 3 days. Prescriptions: Albuterol Sulfate [Proair Hfa] 0.09 mg IH Q6H PRN #2 inh PRN Reason: Wheezing predniSONE [predniSONE Tab] 20 mg PO BID 5 Days tab Instructions: Acute Abdominal Pain (ED), Acute Bronchitis (ED) Print Language: [place]
[2017-06-22] MEDS ORDERED: Albuterol-Ipratrop 3 mg / 0.5 (3 ml) UD ONE (14:03)
[2017-06-22 14:09] LABS: BASO # 0.1 K/uL (0.0-0.2); BASO % 0.5 % (0.0-2.0); EOS # 0.1 K/uL (0.0-0.7); EOS % 0.5 % (0.0-4.0); HEMATOCRIT 42.9 % (34.0-47.0); LYMPH # 1.8 K/uL (1.0-4.3); LYMPH % 15.2 % (20.0-40.0); MEAN CELL VOLUME 90.2 fl (81.0-99.0); MEAN CORPUSCULAR HEMOGLOBIN 29.4 pg (27.0-31.0); MEAN CORPUSCULAR HGB CONC 32.6 g/dL (33.0-37.0); MEAN PLATELET VOLUME 8.8 fl (7.2-11.7); MONO # 0.8 K/uL (0.0-0.8); MONO % 6.5 % (0.0-10.0); NEUT # 9.3 K/uL (1.8-7.0); NEUT % 77.3 % (50.0-75.0); RED CELL DISTRIBUTION WIDTH 13.3 % (11.5-14.5)
[2017-06-22 14:38] LABS: ALB/GLOB RATIO 1.5 (1.0-2.1); ALKALINE PHOSPHATASE 57 U/L (38-126); ALT/SGPT 30 U/L (9-52); AST/SGOT 16 U/L (14-36); BILIRUBIN,TOTAL 0.4 mg/dl (0.2-1.3); BLOOD UREA NITROGEN 16 mg/dl (7-17); CALCIUM 9.8 mg/dL (8.4-10.2); CARBON DIOXIDE 30 mmol/L (22-30); CHLORIDE 98 mmol/L (98-107); GFR AFRICAN-AMERICAN > 60; GLUCOSE,RANDOM 185 mg/dL (65-105); LIPASE 98 U/L (23-300); POTASSIUM 4.1 MMOL/L (3.6-5.0); SODIUM 136 mmol/l (132-148); TOTAL PROTEIN 7.1 G/DL (6.3-8.2)
--- NOTE | 2017-06-22 14:38 | RAD ---
HISTORY: dyspnea COMPARISON: 05/25/2017 FINDINGS: LUNGS: No active pulmonary disease. PLEURA: No significant pleural effusion identified, no pneumothorax apparent. CARDIOVASCULAR: Mild cardiomegaly - aortic knob vascular calcification -both similar. Perihilar bronchovascular markings probably [id number]-appearing OSSEOUS STRUCTURES: Well corticated ossifications project over superior left shoulder joint/subacromial subdeltoid and subcoracoid bursal origins possible -synovial osteochondromatosis, calcific bursitis and/or loose bodies at the sites are considerations. Similar VISUALIZED UPPER ABDOMEN: Normal. OTHER FINDINGS: None. IMPRESSION: No acute cardiopulmonary pathology. Well corticated ossifications project over superior left shoulder joint/subacromial subdeltoid and subcoracoid bursal origins possible -synovial osteochondromatosis, calcific bursitis and/or loose bodies at the sites are considerations. Similar
[2017-06-22 15:23] LABS: PARTIAL THROMBOPLASTIN TIME 34.3 Seconds (25.6-37.1)
--- NOTE | 2017-06-23 09:33 | CARD ---
APPROVED REPORT EKG Measurement Heart [id number] <Conclusion> Sinus rhythm with 1st degree AV block Left axis deviation Possible Anterior infarct, age undetermined Abnormal ECG
== END 2017-06-22 15:54 | disposition home or self-care (01) ==
LOC: H.ER 12:45
DX: J20.9 Acute bronchitis, unspecified (principal); R10.9 Unspecified abdominal pain; E11.9 Type 2 diabetes mellitus without complications; E78.00 Pure hypercholesterolemia, unspecified; F03.90 Unspecified dementia, unspecified severity, without behavioral disturbance, psychotic disturbance, mood disturbance, and anxiety; I10 Essential (primary) hypertension; Z79.4 Long term (current) use of insulin; Z85.43 Personal history of malignant neoplasm of ovary; Z86.73 Personal history of transient ischemic attack (TIA), and cerebral infarction without residual deficits
CPT/HCPCS: 71010; 80053; 83690; 83880; 84484; 85025; 85610; 85730; 87804; 93005; 96361; 96374; 96375; 99282; J2405; J2930; J7040

== ENCOUNTER 2017-08-14 13:13 | Emergency (ER) | payer MEDICARE, OTHER ==
[2017-08-14 13:13] VITALS: BMI 31.8
[2017-08-14 13:58] VITALS: BP 159/75; PULSE 65; RESP 16; TEMP 98.3; O2SAT 97
[2017-08-14 15:38] LABS: HEMOGLOBIN 14.5 g/dL (12.0-16.0); MEAN CELL VOLUME 90.2 fl (81.0-99.0); MEAN CORPUSCULAR HEMOGLOBIN 30.1 pg (27.0-31.0); MEAN CORPUSCULAR HGB CONC 33.3 g/dL (33.0-37.0); RBC 4.82 Mil/uL (3.80-5.20); RED CELL DISTRIBUTION WIDTH 13.7 % (11.5-14.5); WHITE BLOOD COUNT 10.3 K/uL (4.8-10.8)
[2017-08-14 15:51] LABS: ALB/GLOB RATIO 1.5 (1.0-2.1); ALBUMIN 4.5 g/dL (3.5-5.0); ALT/SGPT 27 U/L (9-52); AST/SGOT 17 U/L (14-36); BLOOD UREA NITROGEN 11 mg/dl (7-17); CALCIUM 10.5 mg/dL (8.4-10.2); GFR AFRICAN-AMERICAN > 60; GFR NON-AFRICAN AMERICAN > 60
[2017-08-14 16:03] LABS: SQUAMOUS EPITHIAL 2 /hpf (0-5); URINE BACTERIA RARE (<OCC); URINE BILIRUBIN NEGATIVE (NEGATIVE); URINE BLOOD MODERATE (NEGATIVE); URINE CLARITY CLEAR (Clear); URINE COLOR AMBER (YELLOW); URINE GLUCOSE (UA) NEG (Normal); URINE HYALINE CAST 0-2 /hpf (0-2); URINE LEUKOCYTE ESTERASE NEG Leu/uL (Negative); URINE NITRATE POSITIVE (NEGATIVE); URINE PROTEIN NEGATIVE (NEGATIVE)
--- NOTE | 2017-08-14 16:21 | ED PDOC ---
HPI: Female Pain Time Seen by Provider: 08/14/17 14:10 Chief Complaint (Nursing): Female Genitourinary Chief Complaint (Provider): Dysuria Past Medical History Vital Signs: Last Vital Signs Temp 98.3 F 08/14/17 13:54 Pulse 65 08/14/17 13:54 Resp 16 08/14/17 13:54 BP 159/75 H 08/14/17 13:54 Pulse Ox 97 08/14/17 13:54 - Medical History PMH: Asthma, Atrial Fibrillation, Back Problems, Bronchitis, Cardia Arrhythmia, CVA (with right-sided deficit), Dementia (per old chart), Diabetes, HTN, Hypercholesterolemia, Malignancy (ovarian cancer x2), Seizures (last was 1 year ago) Denies: Hepatitis, HIV, Chronic Kidney Disease, Sexually Transmitted Disease - Surgical History Surgical History: Appendectomy, Cholecystectomy - Family History Family History: States: Unknown Family Hx - Immunization History Hx Influenza Vaccination: Yes - Home Medications Home Medications: Ambulatory Orders Medication Instructions Recorded Albuterol Sulfate [Proair 2 puff IH Q4H PRN 06/02/16 Respiclick] Amiodarone [Cordarone] 200 mg PO DAILY 06/02/16 Amlodipine/Valsartan [Exforge 1 tab PO DAILY 06/02/16 5-160 mg Tablet] Atorvastatin Calcium 10 mg PO HS 06/02/16 Carvedilol [Coreg] 25 mg PO Q12 06/02/16 Fluticasone/Salmeterol 250/50 1 puff IH Q12H 06/02/16 [Advair Diskus 250/50] Gabapentin [Neurontin] 300 mg PO BID 06/02/16 Insulin Glargine, Recombina 25 unit SC HS 06/02/16 [Lantus] Metformin HCl [Glucophage] 1,000 mg PO BID 06/02/16 Rivaroxaban [Xarelto] 20 mg PO HS 06/02/16 Cyanocobalamin [Vitamin B12 1000 1,000 mcg PO DAILY 11/23/16 mcg Tab] Insulin Lispro [humALOG] 15 unit SC BID 11/23/16 Risperidone [Risperdal] 0.5 mg PO HS 11/23/16 Sertraline [Zoloft] 75 mg PO HS 11/23/16 levETIRAcetam [Keppra] 1,000 mg PO Q12H 11/23/16 Albuterol HFA [Ventolin HFA 90 2 puff IH Q4H PRN inhaler 11/27/16 mcg/actuation (8 g)] Pantoprazole [Protonix EC Tab] 40 mg PO DAILY ect 11/27/16 Sertraline [Zoloft] 50 mg PO HS tab 11/27/16 Famotidine [Pepcid] 20 mg PO BID PRN #10 tab 01/05/17 Ciprofloxacin HCl [Cipro] 500 mg PO BID #14 tablet 05/25/17 Metronidazole [Flagyl] 500 mg PO BID #14 tablet 05/25/17 Albuterol Sulfate [Proair Hfa] 0.09 mg IH Q6H PRN #2 inh 06/22/17 predniSONE [predniSONE Tab] 20 mg PO BID 5 Days tab 06/22/17 Miconazole/Cleanser 17 On Wipe 1 each VG QPM #7 kit 08/14/17 [Monistat 7 Combination Pack] Nitrofurantoin Macrocrystals 100 mg PO BID #14 cap 08/14/17 [Macrobid] - Allergies Allergies/Adverse Reactions: Allergies Allergy/AdvReac Type Severity Reaction Status Date / Time No Known Allergies Allergy Verified 06/22/17 12:51 - Laboratory Results Result Diagrams: 08/14/17 15:29 08/14/17 15:29 - ECG O2 Sat by Pulse Oximetry: 97 Disposition - Clinical Impression Clinical Impression: UTI (urinary tract infection), Vulvovaginal candidiasis - Patient ED Disposition Is Patient to be Admitted: No Counseled Patient/Family Regarding: Diagnosis, Need For Followup - Disposition Disposition: Routine/Home Disposition Time: 16:19 Condition: GOOD Prescriptions: Miconazole/Cleanser 17 On Wipe [Monistat 7 Combination Pack] 1 each VG QPM #7 kit Nitrofurantoin Macrocrystals [Macrobid] 100 mg PO BID #14 cap Instructions: Vulvovaginal Yeast Infection
== END 2017-08-14 17:00 | disposition home or self-care (01) ==
LOC: H.ER 13:13
DX: B37.3 Candidiasis of vulva and vagina (principal); N39.0 Urinary tract infection, site not specified; E11.9 Type 2 diabetes mellitus without complications; E78.00 Pure hypercholesterolemia, unspecified; F03.90 Unspecified dementia, unspecified severity, without behavioral disturbance, psychotic disturbance, mood disturbance, and anxiety; I10 Essential (primary) hypertension; Z79.4 Long term (current) use of insulin; J45.909 Unspecified asthma, uncomplicated; Z85.43 Personal history of malignant neoplasm of ovary; Z86.73 Personal history of transient ischemic attack (TIA), and cerebral infarction without residual deficits

== ENCOUNTER 2017-11-12 22:30 | Emergency (ER) | payer MEDICARE, OTHER ==
[2017-11-12 22:30] VITALS: BMI 31.8
--- NOTE | 2017-11-12 23:04 | ED PDOC ---
HPI: Female Pain Additional Complaint(s): 72 yo female with PMH of COPD, AFib, CAD, hypertension, diabetes, hypercholesterolemia, seizures, Uterine cancer presents to ED c/o painless hematuria that started today. Patient states h/o uterine cancer requiring hysterectomy and radiotherapy in 2009. Patient also has h/o of Afib and is on treatment with Xarelto. Associated R flank pain and dysuria. Patient denies fever, nausea, vomiting, chest pain, shortness of breath, no urgency or incontinence. She has no other medical complaints. <Jarvis Loredo - Last Filed: 11/13/17 01:10> <Cedric Bryan - Last Filed: 11/13/17 03:47> Time Seen by Provider: 11/12/17 22:42 Chief Complaint (Nursing): Female Genitourinary Supervising Attending Note - Supervising Attending Note The Documented history was done by the: Physician Lieutenant Fire Fighter The documented physical exam was done by the: Physician Lieutenant Fire Fighter - Attestation: I have personally seen and examined this patient.: Yes I have fully participated in the care of the patient.: Yes I have reviewed all pertinent clinical information, including history, physical exam and plan: Yes <Cedric Bryan - Last Filed: 11/13/17 03:47> Past Medical History Vital Signs: Last Vital Signs Temp 97.6 F 11/12/17 22:37 Pulse 65 11/12/17 22:37 Resp 16 11/12/17 22:37 BP 157/84 H 11/12/17 22:37 Pulse Ox 97 11/12/17 22:37 - Medical History PMH: Asthma, Atrial Fibrillation, Back Problems, Bronchitis, Cardia Arrhythmia, CVA (with right-sided deficit), Dementia (per old chart), Diabetes, HTN, Hypercholesterolemia, Malignancy (ovarian cancer x2), Seizures (last was 1 year ago) Denies: Hepatitis, HIV, Chronic Kidney Disease, Sexually Transmitted Disease - Surgical History Surgical History: Appendectomy, Cholecystectomy - Family History Family History: States: Unknown Family Hx - Immunization History Hx Influenza Vaccination: Yes <Jarvis Loredo - Last Filed: 11/13/17 01:10> Vital Signs: Last Vital Signs Temp 97.7 F 11/13/17 02:09 Pulse 61 11/13/17 02:09 Resp 18 11/13/17 02:09 BP 157/78 H 11/13/17 02:09 Pulse Ox 96 11/13/17 02:09 <Cedric Bryan - Last Filed: 11/13/17 03:47> - Home Medications Home Medications: Ambulatory Orders Medication Instructions Recorded Albuterol Sulfate [Proair 2 puff IH Q4H PRN 06/02/16 Respiclick] Amiodarone [Cordarone] 200 mg PO DAILY 06/02/16 Amlodipine/Valsartan [Exforge 1 tab PO DAILY 06/02/16 5-160 mg Tablet] Atorvastatin Calcium 10 mg PO HS 06/02/16 Carvedilol [Coreg] 25 mg PO Q12 06/02/16 Fluticasone/Salmeterol 250/50 1 puff IH Q12H 06/02/16 [Advair Diskus 250/50] Gabapentin [Neurontin] 300 mg PO BID 06/02/16 Insulin Glargine, Recombina 25 unit SC HS 06/02/16 [Lantus] Metformin HCl [Glucophage] 1,000 mg PO BID 06/02/16 Rivaroxaban [Xarelto] 20 mg PO HS 06/02/16 Cyanocobalamin [Vitamin B12 1000 1,000 mcg PO DAILY 11/23/16 mcg Tab] Insulin Lispro [humALOG] 15 unit SC BID 11/23/16 Risperidone [Risperdal] 0.5 mg PO HS 11/23/16 Sertraline [Zoloft] 75 mg PO HS 11/23/16 levETIRAcetam [Keppra] 1,000 mg PO Q12H 11/23/16 Albuterol HFA [Ventolin HFA 90 2 puff IH Q4H PRN inhaler 11/27/16 mcg/actuation (8 g)] Pantoprazole [Protonix EC Tab] 40 mg PO DAILY ect 11/27/16 Sertraline [Zoloft] 50 mg PO HS tab 11/27/16 Famotidine [Pepcid] 20 mg PO BID PRN #10 tab 01/05/17 Ciprofloxacin HCl [Cipro] 500 mg PO BID #14 tablet 05/25/17 Metronidazole [Flagyl] 500 mg PO BID #14 tablet 05/25/17 Albuterol Sulfate [Proair Hfa] 0.09 mg IH Q6H PRN #2 inh 06/22/17 predniSONE [predniSONE Tab] 20 mg PO BID 5 Days tab 06/22/17 Miconazole/Cleanser 17 On Wipe 1 each VG QPM #7 kit 08/14/17 [Monistat 7 Combination Pack] Nitrofurantoin Macrocrystals 100 mg PO BID #14 cap 08/14/17 [Macrobid] Nitrofurantoin Macrocrystals 100 mg PO BID #14 cap 11/13/17 [Macrobid] Tamsulosin [Flomax] 0.4 mg PO DAILY #10 cap 11/13/17 - Allergies Allergies/Adverse Reactions: Allergies Allergy/AdvReac Type Severity Reaction Status Date / Time No Known Allergies Allergy Verified 11/12/17 22:37 Review of Systems ROS Statement: Except As Marked, All Systems Reviewed And Found Negative <Jarvis Loredo - Last Filed: 11/13/17 01:10> Physical Exam - Reviewed Nursing Documentation Reviewed: Yes Vital Signs Reviewed: Yes - Physical Exam Appears: Positive for: No Acute Distress Head Exam: Positive for: NORMAL INSPECTION Cardiovascular/Chest: Positive for: Regular Rate, Rhythm. Negative for: Edema, Murmur Respiratory: Positive for: Normal Breath Sounds. Negative for: Rhonchi, Wheezing Gastrointestinal/Abdominal: Positive for: Normal Exam, Bowel Sounds, Soft, Tenderness (R CVA tender). Negative for: Distended Extremity: Negative for: Tenderness, Pedal Edema Neurologic/Psych: Positive for: Alert, principal librarian II-XII, Oriented <Jarvis Loredo - Last Filed: 11/13/17 01:10> - Laboratory Results Result Diagrams: 11/12/17 23:39 11/12/17 23:39 - ECG O2 Sat by Pulse Oximetry: 97 - Progress ED Course And Treament: CBC, CMP, CPK PT/PTT UA, urine CX Lipase Tylenol PO Reeval Reeval: 0032 Labs wnl UA positive for micro bacteria Plan: ceftriaxone IV once Toradol 10 IV once flomax IV once. ABD PELVIS W/O PO OR IV CONT Exam Date: 11/12/17 TECHNIQUE: Axial computed tomography images of the abdomen and pelvis without intravenous contrast. All CT scans at this facility use one or more dose reduction techniques, viz.: automated exposure control; ma/kV adjustment per patient size (including targeted exams where dose is matched to indication; i.e. head); or iterative reconstruction technique. Coronal and sagittal reformatted images were created and reviewed. COMPARISON: CT - ABD PELVIS W/O PO OR IV CONT 2017-08-25 08:07 FINDINGS: Lung bases: Small pericardial effusion.A small hiatal hernia is present. ABDOMEN: Liver: Unremarkable. Gallbladder and bile ducts: There has been a cholecystectomy. No ductal dilation. Pancreas: Unremarkable. No ductal dilation. Spleen: Unremarkable. No splenomegaly. Adrenals: Unremarkable. No mass. Kidneys and ureters: There is mild right hydronephrosis. The left kidney is normal. There is a 4 mm stone in the right ureteropelvic junction. Stomach and bowel: Mild diverticulosis is present in the sigmoid and descending colon. No obstruction. No mucosal thickening. PELVIS: Appendix: No findings to suggest acute appendicitis. Bladder: Unremarkable. No stones. Reproductive: Unremarkable as visualized. ABDOMEN and PELVIS: Intraperitoneal space: Unremarkable. No free air. No significant fluid collection. Bones/joints: Degenerative changes. No acute fracture. No dislocation. Soft tissues: Unremarkable. Vasculature: Unremarkable. No abdominal aortic aneurysm. Lymph nodes: Unremarkable. No enlarged lymph nodes. IMPRESSION: Mild right hydronephrosis secondary to 4 mm UPJ stone. Diverticulosis. No diverticulitis. Small hiatal hernia. Small pericardial effusion, unchanged. <Jarvis Loredo - Last Filed: 11/13/17 01:10> - Laboratory Results Result Diagrams: 11/12/17 23:39 11/12/17 23:39 <Cedric Bryan - Last Filed: 11/13/17 03:47> Disposition - Patient ED Disposition Is Patient to be Admitted: No - Disposition Disposition: Routine/Home Disposition Time: 01:03 <Jarvis Loredo - Last Filed: 11/13/17 01:10> <Cedric Bryan - Last Filed: 11/13/17 03:47> - Clinical Impression Clinical Impression: Ureteral calculus, UTI (urinary tract infection) - Disposition Condition: GOOD Additional Instructions: f/u with PCP Dr Major at [facility] in 2-3 days. Macrobid 100 mg BID x 7days Flomax 0.4 mg daily Plenty of fluids ER precautions reviewed. Prescriptions: Nitrofurantoin Macrocrystals [Macrobid] 100 mg PO BID #14 cap Tamsulosin [Flomax] 0.4 mg PO DAILY #10 cap Instructions: Urinary Tract Infections in Adults, Kidney Stones in Adults Forms: [facility] (Sami) Print Language: [place]ALLIS[place]
[2017-11-12 23:39] LABS: BASO % 0.4 % (0.0-2.0); EOS # 0.1 K/uL (0.0-0.7); HEMOGLOBIN 13.1 g/dL (12.0-16.0); LYMPH # 2.1 K/uL (1.0-4.3); LYMPH % 27.7 % (20.0-40.0); MEAN CORPUSCULAR HEMOGLOBIN 30.9 pg (27.0-31.0); MEAN PLATELET VOLUME 8.8 fl (7.2-11.7); MONO # 0.8 K/uL (0.0-0.8); MONO % 10.9 % (0.0-10.0); NEUT # 4.6 K/uL (1.8-7.0); RBC 4.24 Mil/uL (3.80-5.20); RED CELL DISTRIBUTION WIDTH 13.3 % (11.5-14.5); WHITE BLOOD COUNT 7.7 K/uL (4.8-10.8)
[2017-11-12 23:53] LABS: ALB/GLOB RATIO 1.2 (1.0-2.1); ALBUMIN 3.6 g/dL (3.5-5.0); ALT/SGPT 29 U/L (9-52); AST/SGOT 21 U/L (14-36); BLOOD UREA NITROGEN 18 mg/dl (7-17); CALCIUM 9.3 mg/dL (8.4-10.2); GFR AFRICAN-AMERICAN > 60; GFR NON-AFRICAN AMERICAN > 60; INR 1.4 (0.9-1.2); PARTIAL THROMBOPLASTIN TIME 43.7 Seconds (25.6-37.1); PROTHROMBIN TIME 15.6 Seconds (9.8-13.1)
--- NOTE | 2017-11-13 00:32 | CT ---
EXAM: CT Abdomen and Pelvis Without Intravenous Contrast CLINICAL HISTORY: 72 years old, female; Condition or disease; Other: Hematuria; Prior surgery; Surgery date: 6+ months; Surgery type: Hysterectomy. Cholecystectomy TECHNIQUE: Axial computed tomography images of the abdomen and pelvis without intravenous contrast. All CT scans at this facility use one or more dose reduction techniques, viz.: automated exposure control; ma/kV adjustment per patient size (including targeted exams where dose is matched to indication; i.e. head); or iterative reconstruction technique. Coronal and sagittal reformatted images were created and reviewed. COMPARISON: CT - ABD PELVIS W/O PO OR IV CONT 2017-08-25 08:07 FINDINGS: Lung bases: Small pericardial effusion.A small hiatal hernia is present. ABDOMEN: Liver: Unremarkable. Gallbladder and bile ducts: There has been a cholecystectomy. No ductal dilation. Pancreas: Unremarkable. No ductal dilation. Spleen: Unremarkable. No splenomegaly. Adrenals: Unremarkable. No mass. Kidneys and ureters: There is mild right hydronephrosis. The left kidney is normal. There is a 4 mm stone in the right ureteropelvic junction. Stomach and bowel: Mild diverticulosis is present in the sigmoid and descending colon. No obstruction. No mucosal thickening. PELVIS: Appendix: No findings to suggest acute appendicitis. Bladder: Unremarkable. No stones. Reproductive: Unremarkable as visualized. ABDOMEN and PELVIS: Intraperitoneal space: Unremarkable. No free air. No significant fluid collection. Bones/joints: Degenerative changes. No acute fracture. No dislocation. Soft tissues: Unremarkable. Vasculature: Unremarkable. No abdominal aortic aneurysm. Lymph nodes: Unremarkable. No enlarged lymph nodes. IMPRESSION: Mild right hydronephrosis secondary to 4 mm UPJ stone. Diverticulosis. No diverticulitis. Small hiatal hernia. Small pericardial effusion, unchanged.
[2017-11-13 00:40] LABS: SQUAMOUS EPITHIAL 2 /hpf (0-5); URINE BACTERIA FEW (<OCC); URINE BILIRUBIN NEGATIVE (NEGATIVE); URINE BLOOD MODERATE (NEGATIVE); URINE CLARITY CLOUDY (Clear); URINE COLOR RED (YELLOW); URINE GLUCOSE (UA) NEG (Normal); URINE LEUKOCYTE ESTERASE NEG Leu/uL (Negative); URINE PROTEIN 100 mg/dL (NEGATIVE); URINE UROBILINOGEN 0.2-1.0 mg/dL (0.2-1.0)
[2017-11-13] MEDS ORDERED: cefTRIAXone (Rocephin) 1 gm Inj ONE (01:07)
[2017-11-13 03:12] VITALS: BP 157/78; PULSE 61; RESP 18; TEMP 97.7; O2SAT 96
== END 2017-11-13 02:10 | disposition home or self-care (01) ==
LOC: H.ER 22:30
DX: N39.0 Urinary tract infection, site not specified (principal); N20.1 Calculus of ureter; E11.9 Type 2 diabetes mellitus without complications; E78.00 Pure hypercholesterolemia, unspecified; F03.90 Unspecified dementia, unspecified severity, without behavioral disturbance, psychotic disturbance, mood disturbance, and anxiety; I10 Essential (primary) hypertension; I25.10 Atherosclerotic heart disease of native coronary artery without angina pectoris; I31.3 Pericardial effusion (noninflammatory); I48.91 Unspecified atrial fibrillation; J44.9 Chronic obstructive pulmonary disease, unspecified; K44.9 Diaphragmatic hernia without obstruction or gangrene; R56.9 Unspecified convulsions; Z79.4 Long term (current) use of insulin; Z85.43 Personal history of malignant neoplasm of ovary; Z86.73 Personal history of transient ischemic attack (TIA), and cerebral infarction without residual deficits; Z90.49 Acquired absence of other specified parts of digestive tract; Z90.710 Acquired absence of both cervix and uterus
CPT/HCPCS: 74176; 80053; 81003; 82550; 85025; 85610; 85730; 87086; 96365; 99284; J0696; J1885

== ENCOUNTER 2017-12-02 08:41 | Observation (INO) | payer MEDICARE, OTHER ==
[2017-12-02 08:45] VITALS: BMI 35.4
--- NOTE | 2017-12-02 09:58 | ED PDOC ---
HPI: Back Time Seen by Provider: 12/02/17 09:21 Chief Complaint (Nursing): Back Pain Chief Complaint (Provider): Right Flank Pain History Per: Patient History/Exam Limitations: no limitations Onset/Duration Of Symptoms: Days (x2) Current Symptoms Are (Timing): Still Present Additional Complaint(s): 72 y/o female with a pmhx of gall bladder disease, HTN, and hypercholesterolemia , who presents to the ED for evaluation of right sided flank pain x2 days. Patient reports she was diagnosed with a kidney stone on 11/12/2017 was told to follow up with PMD, but her appointment is for the end of November. She reports pain to the right flank, dysuria, and hematuria, but denies fever. Patient confirms positive nausea, but no vomiting. PMD: Dr. Major Past Medical History Reviewed: Historical Data, Nursing Documentation, Vital Signs Vital Signs: Last Vital Signs Temp 98.3 F 12/02/17 08:46 Pulse 58 L 12/02/17 08:46 Resp 20 12/02/17 08:46 BP 185/70 H 12/02/17 08:46 Pulse Ox 98 12/02/17 08:46 - Medical History PMH: Asthma, Atrial Fibrillation, Back Problems, Bronchitis, Cardia Arrhythmia, CVA (with right-sided deficit), Dementia (per old chart), Diabetes, Gall Bladder Disease, HTN, Hypercholesterolemia, Malignancy (ovarian cancer x2), Seizures (last was 1 year ago) Denies: Hepatitis, HIV, Chronic Kidney Disease, Sexually Transmitted Disease - Surgical History Surgical History: Appendectomy, Cholecystectomy, Tonsillectomy - Family History Family History: States: Unknown Family Hx - Immunization History Hx Influenza Vaccination: Yes - Home Medications Home Medications: Ambulatory Orders Medication Instructions Recorded Albuterol Sulfate [Proair 2 puff IH Q4H PRN 06/02/16 Respiclick] Amiodarone [Cordarone] 200 mg PO DAILY 06/02/16 Amlodipine/Valsartan [Exforge 1 tab PO DAILY 06/02/16 5-160 mg Tablet] Atorvastatin Calcium 10 mg PO HS 06/02/16 Carvedilol [Coreg] 25 mg PO Q12 06/02/16 Fluticasone/Salmeterol 250/50 1 puff IH Q12H 06/02/16 [Advair Diskus 250/50] Gabapentin [Neurontin] 300 mg PO BID 12/07/16 Insulin Glargine, Recombina 25 unit SC HS 06/02/16 [Lantus] Metformin HCl [Glucophage] 1,000 mg PO BID 06/02/16 Rivaroxaban [Xarelto] 20 mg PO HS 06/02/16 Cyanocobalamin [Vitamin B12 1000 1,000 mcg PO DAILY 11/23/16 mcg Tab] Insulin Lispro [humALOG] 15 unit SC BID 11/23/16 Risperidone [Risperdal] 0.5 mg PO HS 11/23/16 Sertraline [Zoloft] 75 mg PO HS 11/23/16 levETIRAcetam [Keppra] 1,000 mg PO Q12H 11/23/16 Albuterol HFA [Ventolin HFA 90 2 puff IH Q4H PRN inhaler 11/27/16 mcg/actuation (8 g)] Pantoprazole [Protonix EC Tab] 40 mg PO DAILY ect 11/27/16 Sertraline [Zoloft] 50 mg PO HS tab 11/27/16 Famotidine [Pepcid] 20 mg PO BID PRN #10 tab 01/05/17 Ciprofloxacin HCl [Cipro] 500 mg PO BID #14 tablet 05/25/17 Metronidazole [Flagyl] 500 mg PO BID #14 tablet 05/25/17 Albuterol Sulfate [Proair Hfa] 0.09 mg IH Q6H PRN #2 inh 06/22/17 predniSONE [predniSONE Tab] 20 mg PO BID 5 Days tab 06/22/17 Miconazole/Cleanser 17 On Wipe 1 each VG QPM #7 kit 08/14/17 [Monistat 7 Combination Pack] Nitrofurantoin Macrocrystals 100 mg PO BID #14 cap 08/14/17 [Macrobid] Nitrofurantoin Macrocrystals 100 mg PO BID #14 cap 11/13/17 [Macrobid] Tamsulosin [Flomax] 0.4 mg PO DAILY #10 cap 11/13/17 - Allergies Allergies/Adverse Reactions: Allergies Allergy/AdvReac Type Severity Reaction Status Date / Time No Known Allergies Allergy Verified 11/12/17 22:37 Review of Systems ROS Statement: Except As Marked, All Systems Reviewed And Found Negative Constitutional: Negative for: Fever Gastrointestinal: Positive for: Nausea. Negative for: Vomiting Genitourinary Female: Positive for: Dysuria, Hematuria Musculoskeletal: Positive for: Back Pain Physical Exam - Reviewed Nursing Documentation Reviewed: Yes Vital Signs Reviewed: Yes - Physical Exam Appears: Positive for: Non-toxic, No Acute Distress Head Exam: Positive for: ATRAUMATIC, NORMAL INSPECTION, NORMOCEPHALIC Skin: Positive for: Normal Color, Warm, Dry. Negative for: Rash Eye Exam: Positive for: EOMI, Normal appearance, PERRL Neck: Positive for: Normal, Painless ROM, Supple Cardiovascular/Chest: Positive for: Regular Rate, Rhythm. Negative for: Murmur Respiratory: Positive for: Normal Breath Sounds. Negative for: Respiratory Distress Gastrointestinal/Abdominal: Positive for: Normal Exam, Soft. Negative for: Tenderness Back: Positive for: R CVA Tenderness Extremity: Positive for: Normal ROM. Negative for: Pedal Edema, Deformity Neurologic/Psych: Positive for: Alert, Oriented. Negative for: Motor/Sensory Deficits - Laboratory Results Result Diagrams: 12/02/17 10:55 12/02/17 10:55 - ECG O2 Sat by Pulse Oximetry: 98 (RA) Pulse Ox Interpretation: Normal - Physician Consult Information Time Consulting Physican Contacted: 13:20 Physician Contacted: Fausto Patel Outcome Of Conversation: Will place stent today. Medical Decision Making Medical Decision Makin:52 Impression: Differential diagnoses include, but are not limited to UTI, nephrolithiasis, and pyelonephritis. Plan: --CT abdomen and pelvis w/o IV contrast --CMP --Urine dipstick --CBC --PTT/PT --Morphine 2mg IV --Urine culture --Urinalysis --Reevaluation ----- Scribe Attestation: Documented by Td Demarco, acting as a scribe for Aundrea Anand MD. Provider Scribe Attestation: All medical record entries made by the Scribe were at my direction and personally dictated by me. I have reviewed the chart and agree that the record accurately reflects my personal performance of the history, physical exam, medical decision making, and the department course for this patient. I have also personally directed, reviewed, and agree with the discharge instructions and disposition. Disposition - Clinical Impression Clinical Impression: Ureteral calculus - Patient ED Disposition Is Patient to be Admitted: Yes - Disposition Disposition Time: 13:23 Condition: STABLE Forms: [facility] (Latvian) - Pt Status Changed To: Hospital Disposition Of: Observation - POA Present On Arrival: None
[2017-12-02 10:36] LABS: SQUAMOUS EPITHIAL < 1 /hpf (0-5); URINE BACTERIA RARE (<OCC); URINE BILIRUBIN NEGATIVE (NEGATIVE); URINE BLOOD LARGE (NEGATIVE); URINE CLARITY CLOUDY (Clear); URINE COLOR STRAW (YELLOW); URINE GLUCOSE (UA) NEG (Normal); URINE HYALINE CAST 0-2 /hpf (0-2); URINE LEUKOCYTE ESTERASE NEG Leu/uL (Negative); URINE PROTEIN NEGATIVE (NEGATIVE); URINE UROBILINOGEN 0.2-1.0 mg/dL (0.2-1.0)
[2017-12-02 11:18] LABS: BASO % 0.6 % (0.0-2.0); EOS # 0.1 K/uL (0.0-0.7); EOS % 1.2 % (0.0-4.0); HEMOGLOBIN 13.6 g/dL (12.0-16.0); LYMPH # 1.7 K/uL (1.0-4.3); LYMPH % 20.5 % (20.0-40.0); MEAN CELL VOLUME 92.9 fl (81.0-99.0); MEAN CORPUSCULAR HEMOGLOBIN 30.9 pg (27.0-31.0); MEAN CORPUSCULAR HGB CONC 33.2 g/dL (33.0-37.0); MEAN PLATELET VOLUME 9.7 fl (7.2-11.7); MONO # 0.7 K/uL (0.0-0.8); MONO % 8.2 % (0.0-10.0); NEUT # 5.6 K/uL (1.8-7.0); NEUT % 69.5 % (50.0-75.0); RBC 4.41 Mil/uL (3.80-5.20); RED CELL DISTRIBUTION WIDTH 12.8 % (11.5-14.5); WHITE BLOOD COUNT 8.1 K/uL (4.8-10.8)
[2017-12-02 11:23] LABS: PARTIAL THROMBOPLASTIN TIME 37.7 Seconds (25.6-37.1); PROTHROMBIN TIME 11.2 Seconds (9.8-13.1)
[2017-12-02 11:30] LABS: ALB/GLOB RATIO 1.3 (1.0-2.1); ALBUMIN 3.9 g/dL (3.5-5.0); ALT/SGPT 24 U/L (9-52); AST/SGOT 20 U/L (14-36); BLOOD UREA NITROGEN 12 mg/dl (7-17); CALCIUM 9.4 mg/dL (8.4-10.2); GFR AFRICAN-AMERICAN > 60; GFR NON-AFRICAN AMERICAN > 60
--- NOTE | 2017-12-02 11:49 | CT ---
PROCEDURE: CT Abdomen and Pelvis without intravenous contrast HISTORY: R flank pain COMPARISON: None. TECHNIQUE: Contiguous helical/transaxial sections of the pattern performed without oral or intravenous contrast material. Additional 2D sagittal and coronal reformats generated Radiation dose: Total exam DLP = 964.24 mGy-cm. This CT exam was performed using one or more of the following dose reduction techniques: Automated exposure control, adjustment of the mA and/or kV according to patient size, and/or use of iterative reconstruction technique. FINDINGS: LOWER THORAX: Cardiomegaly. Small pericardial effusion. Brenda minimal of atelectasis both lung bases. No evidence of effusion or basilar pneumothorax. There is a small hiatal hernia with wall thickening of distal esophagus that could be due to protrusion of gastric mucosa however the possibility of esophagitis or other intrinsic/invasive wall lesion not excluded. Clinic correlation recommended to determine whether followup endoscopy is required. LIVER: Liver exhibits normal size measuring 16 cm in CC dimension. No obvious hepatic mass or collection. GALLBLADDER AND BILE DUCTS: Cholecystectomy PANCREAS: Pancreas is atrophic and fatty replaced. No obvious pancreatic mass collection or calcification. . SPLEEN: Spleen exhibits normal size and attenuation pattern without mass collection or calcification. ADRENALS: There are no adrenal lesions seen. KIDNEYS AND URETERS: There is a small approximately 5.6 mm calculus within the proximal right ureter with minimal prominence of the proximal right renal pelvis. No other renal calculi are seen. No evidence of left-sided hydronephrosis. VASCULATURE: Unremarkable. No aortic aneurysm. BOWEL: Evaluation of the bowel is limited due to the lack of oral contrast material. The stomach is incompletely distended which in part accounts thick-walled appearance. Gastritis not excluded. Visualized loops of small bowel exhibit normal contour and caliber. No evidence of acute mechanical small bowel obstruction. Stool and air seen throughout the large bowel. Moderate amount of stool seen throughout the large bowel consistent with mild fecal retention/ constipation. There are multiple colonic diverticula seen along sigmoid and descending colon however no radiographic evidence of acute diverticulitis. APPENDIX: Unremarkable. Normal appendix. PERITONEUM: Unremarkable. No free fluid. No free air. Small fat containing umbilical hernia. LYMPH NODES: Unremarkable. No enlarged lymph nodes. BLADDER: Urinary bladder physiologically distended. No evidence of intraluminal urinary bladder calculi. The REPRODUCTIVE: Status post hysterectomy BONES: Multilevel degenerative spondylosis of the lower thoracic and lumbar spine. No acute compression fractures OTHER FINDINGS: None. IMPRESSION: Small approximately 5.6 mm calculus proximal right ureter as above. Cardiomegaly with small pericardial effusion. . . Small hiatal hernia with wall thickening of the distal esophagus which is likely in part due to protrusion gastric mucosa however esophagitis or other intrinsic/invasive wall lesion not excluded. Endoscopy followup may be prudent. Findings consistent with constipation. Diverticulosis without radiographic evidence of acute diverticulitis. Cholecystectomy. Hysterectomy.
[2017-12-02] MEDS ORDERED: Sodium Chloride 0.9% 1,000 ML IV STA (11:51)
--- NOTE | 2017-12-02 13:55 | RAD ---
HISTORY: Admission COMPARISON: Comparison chest dated 06/22/2017. FINDINGS: LUNGS: No active pulmonary disease. PLEURA: No significant pleural effusion identified, no pneumothorax apparent. CARDIOVASCULAR: Cardiomegaly. OSSEOUS STRUCTURES: Re- demonstrated are small calcific densities adjacent to the inferior margin of the acromion ; rule out calcific bursitis,, loose bodies or osteochondromatosis VISUALIZED UPPER ABDOMEN: Normal. OTHER FINDINGS: None. IMPRESSION: No active disease. Cardiomegaly.
[2017-12-02] MEDS ORDERED: Albuterol HFA 90 mcg/actuation (8 g) IH PRN (15:09)
--- NOTE | 2017-12-02 16:24 | CP.PCM.HP ---
Addendum entered and electronically signed by Alena Lundberg MD 12/02/17 17:27: Patient denies taking her Meds: silvinoreleliza today (Last dose yesterday morning), Dr. Patel, Urology was called and discussed before any surgical management. Original Note: <Alena Lundberg - Last Filed: 12/02/17 16:46> History of Present Illness - History of Present Illness History of Present Illness: This is 72 y/o Female with PMH of A-fib, HTN, HLD, seizure disorder, nephrolithiasis, Asthma, uterine CA, osteoarthritis and depression admitted to [facility] for evaluation and treatment of right flank pain and hematuria. Patient reports progressively worsening flank pain started 3 days ago, constant, sharp in nature, non radiating, 8/10 severity, not relieved on Tylenol and worsened with movements. Right flank pain associated with 1 episode of hematuria and dysuria this morning which prompted her to comes to the ER. Patient denies any nausea, vomiting, fever, chills, diarrhea, chest pain, SOB or weakness. patient is tolerating PO intake. PMD: Dr. Major PMH: A-fib, HTN, HLD, seizure disorder, nephrolithiasis, Asthma, uterine CA, osteoarthritis and depression PSH: Appendectomy as a child, cholecystectomy 2007, and hysterectomy in 2009 Allg: KNDA Meds: See med rec SH: Social alcohol use, smoking; half pack/week, denies any illicit drug use FH: Father, decreased, heart attack. Mother, decreased, seizures and lung cancer ED Course: Afebrile, PP 58, RR20, BP 185/70, 98% CBC; wnl CMP: wnl Urine dip PTT/PT 37.7/11.2, INR 1.0 UA: significant for large urine blood Ucx: f/u EKG: Sinus bradycardia with 1st degree AV block, Left axis deviation,Inferior infarct, age undetermined,Anteroseptal infarct, age undetermined (f/u official read) CXR: No acute disease CT abdo/pelvis w/o Cont: small approxi 5.6mm calculus proximal right ureter, cardiomegali with small plural effusion, small hiatal hernia, constipation, diverticulosis. -S/p Morphine and s/p Toradol, s/p Flomax, s/p IVF Present on Admission - Present on Admission Any Indicators Present on Admission: No History of DVT/PE: No History of Uncontrolled Diabetes: No Urinary Catheter: No Decubitus Ulcer Present: No Past Patient History - Infectious Disease Hx of Infectious Diseases: None - Past Medical History & Family History Past Medical History?: Yes - Past Social History Smoking Status: Former Smoker - CARDIAC Hx Atrial Fibrillation: Yes Hx Cardia Arrhythmia: Yes Hx Hypercholesterolemia: Yes Hx Hypertension: Yes - PULMONARY Hx Asthma: Yes Hx Bronchitis: Yes - NEUROLOGICAL Hx Dementia: Yes (per old chart) Hx Seizures: Yes (last was 1 year ago) - HEENT Hx HEENT Problems: No - RENAL Hx Chronic Kidney Disease: No - HEMATOLOGICAL/ONCOLOGICAL Hx Human Immunodeficiency Virus (HIV): No - INTEGUMENTARY Hx Dermatological Problems: No - MUSCULOSKELETAL/RHEUMATOLOGICAL Hx Musculoskeletal Disorders: No Hx Falls: Yes - GASTROINTESTINAL Hx Gall Bladder Disease: Yes - GENITOURINARY/GYNECOLOGICAL Hx Sexually Transmitted Disorders: No - PSYCHIATRIC Hx Psychophysiologic Disorder: No Hx Substance Use: No - SURGICAL HISTORY Hx Appendectomy: Yes Hx Cholecystectomy: Yes Hx Tonsillectomy: Yes - ANESTHESIA Hx Anesthesia: Yes Hx Anesthesia Reactions: No Hx Malignant Hyperthermia: No Meds Allergies/Adverse Reactions: Allergies Allergy/AdvReac Type Severity Reaction Status Date / Time No Known Allergies Allergy Verified 11/12/17 22:37 Physical Exam - Constitutional Appears: No Acute Distress - Head Exam Head Exam: NORMAL INSPECTION - Eye Exam Eye Exam: Normal appearance, PERRL Pupil Exam: NORMAL ACCOMODATION - ENT Exam ENT Exam: Mucous Membranes Moist - Neck Exam Neck exam: Positive for: Normal Inspection - Respiratory Exam Respiratory Exam: Clear to Auscultation Bilateral, NORMAL BREATHING PATTERN - Cardiovascular Exam Cardiovascular Exam: Irregular Rhythm, +S1, +S2 - GI/Abdominal Exam GI & Abdominal Exam: Normal Bowel Sounds - Extremities Exam Extremities exam: Positive for: full ROM, normal inspection. Negative for: pedal edema, tenderness - Back Exam Back exam: CVA tenderness (R), NORMAL INSPECTION. absent: CVA tenderness (L) - Neurological Exam Neurological exam: Alert, CN II-XII Intact, Oriented x3 - Psychiatric Exam Psychiatric exam: Anxious, Normal Affect - Skin Skin Exam: Dry, Intact, Normal Color, Warm Results - Vital Signs Recent Vital Signs: Last Vital Signs Temp 97.8 F 12/02/17 15:41 Pulse 54 L 12/02/17 15:41 Resp 16 12/02/17 15:41 BP 141/69 12/02/17 15:41 Pulse Ox 97 12/02/17 15:41 - Labs Result Diagrams: 12/02/17 10:55 12/02/17 10:55 Labs: Laboratory Results - last 24 hr 12/02/17 12/02/17 12/02/17 10:00 10:55 10:55 WBC 8.1 RBC 4.41 Hgb 13.6 Hct 41.0 MCV 92.9 MCH 30.9 MCHC 33.2 RDW 12.8 Plt Count 180 MPV 9.7 Neut % (Auto) 69.5 Lymph % (Auto) 20.5 [place] % (Auto) 8.2 Eos % (Auto) 1.2 Baso % (Auto) 0.6 Neut # (Auto) 5.6 Lymph # (Auto) 1.7 [place] # (Auto) 0.7 Eos # (Auto) 0.1 Baso # (Auto) 0.0 PT INR APTT Sodium 139 Potassium 4.7 Chloride 103 Carbon Dioxide 29 Anion Gap 12 BUN 12 Creatinine 0.5 L Est GFR ( Amer) > 60 Est GFR (Non-Af Amer) > 60 POC Glucose (mg/dL) Random Glucose 148 H Calcium 9.4 Total Bilirubin 0.7 AST 20 ALT 24 Alkaline Phosphatase 39 Total Protein 6.8 Albumin 3.9 Globulin 2.9 Albumin/Globulin Ratio 1.3 Urine Color Straw Urine Clarity Cloudy Urine pH 7.0 Ur Specific [place] 1.013 Urine Protein Negative Urine Glucose (UA) Neg Urine Ketones Negative Urine Blood Large Urine Nitrate Negative Urine Bilirubin Negative Urine Urobilinogen 0.2-1.0 Ur Leukocyte Esterase Neg Urine RBC (Auto) 933 H Ur Squamous Epith Cells < 1 Urine Bacteria Rare Hyaline Casts 0-2 12/02/17 12/02/17 10:55 14:18 WBC RBC Hgb Hct MCV MCH MCHC RDW Plt Count MPV Neut % (Auto) Lymph % (Auto) [place] % (Auto) Eos % (Auto) Baso % (Auto) Neut # (Auto) Lymph # (Auto) [place] # (Auto) Eos # (Auto) Baso # (Auto) PT 11.2 INR 1.0 APTT 37.7 H Sodium Potassium Chloride Carbon Dioxide Anion Gap BUN Creatinine Est GFR ( Amer) Est GFR (Non-Af Amer) POC Glucose (mg/dL) 113 H Random Glucose Calcium Total Bilirubin AST ALT Alkaline Phosphatase Total Protein Albumin Globulin Albumin/Globulin Ratio Urine Color Urine Clarity Urine pH Ur Specific [place] Urine Protein Urine Glucose (UA) Urine Ketones Urine Blood Urine Nitrate Urine Bilirubin Urine Urobilinogen Ur Leukocyte Esterase Urine RBC (Auto) Ur Squamous Epith Cells Urine Bacteria Hyaline Casts Assessment & Plan - Assessment and Plan (Free Text) Assessment: 72 y/o Female with PMH of A-fib, HTN, HLD, seizure disorder, nephrolithiasis, Asthma, uterine CA, gastritis, osteoarthritis and depression admitted to [facility] for evaluation and treatment of right flank pain and hematuria. Nephrolithiasis -Afebrile -CT abdo/pelvis w/o Cont: small approxi 5.6mm calculus proximal right ureter, cardiomegali with small plural effusion, small hiatal hernia, constipation, diverticulosis. -S/p Morphine and s/p Toradol, s/p Flomax, s/p IVF -Urology, Dr. Patel, consult; follow up recom' -Pain management: Toradol -C/w Flomax -NPO, IVF -F/u Urology karin' -Admit to [facility] Hematuria -Possibly due to nephrolithiasis -1 episode -H/H; 13.6/41 -UA: significant for large urine blood, no leuk or nitr -Urology, Dr. Patel, consult; follow up recom' Dysuria -Afebrile -UA: significant for large urine blood, no leuk or nitr -Ucx: follow up A-fib -Hold Zeralto, last dose this morning -Possible surgical intervention, will follow up with Urology -C/w home meds; Amiodarone HTN -Uncontolled -C/w home meds HLD -C/w home meds: Lipitoe 10mg HS Moderate persistent asthma -Controlled -C/w Albuterol, Advair Gastritis -C/w PPI Seizure disorder -C/w home meds; Keppra 1000mg PO Q12 Depression -C/w home meds DVT PPX -SCD <Lidia Britton - Last Filed: 12/03/17 08:57> Results - Vital Signs Recent Vital Signs: Last Vital Signs Temp 97.7 F 12/03/17 08:00 Pulse 67 12/03/17 08:00 Resp 20 12/03/17 08:00 BP 125/74 12/03/17 08:00 Pulse Ox 96 12/03/17 08:00 - Labs Result Diagrams: 12/03/17 05:20 12/03/17 05:20 Labs: Laboratory Results - last 24 hr 12/02/17 12/02/17 12/02/17 10:00 10:55 10:55 WBC 8.1 RBC 4.41 Hgb 13.6 Hct 41.0 MCV 92.9 MCH 30.9 MCHC 33.2 RDW 12.8 Plt Count 180 MPV 9.7 Neut % (Auto) 69.5 Lymph % (Auto) 20.5 [place] % (Auto) 8.2 Eos % (Auto) 1.2 Baso % (Auto) 0.6 Neut # (Auto) 5.6 Lymph # (Auto) 1.7 [place] # (Auto) 0.7 Eos # (Auto) 0.1 Baso # (Auto) 0.0 PT INR APTT Sodium 139 Potassium 4.7 Chloride 103 Carbon Dioxide 29 Anion Gap 12 BUN 12 Creatinine 0.5 L Est GFR ( Amer) > 60 Est GFR (Non-Af Amer) > 60 POC Glucose (mg/dL) Random Glucose 148 H Calcium 9.4 Total Bilirubin 0.7 AST 20 ALT 24 Alkaline Phosphatase 39 Total Protein 6.8 Albumin 3.9 Globulin 2.9 Albumin/Globulin Ratio 1.3 Urine Color Straw Urine Clarity Cloudy Urine pH 7.0 Ur Specific [place] 1.013 Urine Protein Negative Urine Glucose (UA) Neg Urine Ketones Negative Urine Blood Large Urine Nitrate Negative Urine Bilirubin Negative Urine Urobilinogen 0.2-1.0 Ur Leukocyte Esterase Neg Urine RBC (Auto) 933 H Ur Squamous Epith Cells < 1 Urine Bacteria Rare Hyaline Casts 0-2 12/02/17 12/02/17 12/02/17 10:55 14:18 21:30 WBC RBC Hgb Hct MCV MCH MCHC RDW Plt Count MPV Neut % (Auto) Lymph % (Auto) [place] % (Auto) Eos % (Auto) Baso % (Auto) Neut # (Auto) Lymph # (Auto) [place] # (Auto) Eos # (Auto) Baso # (Auto) PT 11.2 INR 1.0 APTT 37.7 H Sodium Potassium Chloride Carbon Dioxide Anion Gap BUN Creatinine Est GFR ( Amer) Est GFR (Non-Af Amer) POC Glucose (mg/dL) 113 H 171 H Random Glucose Calcium Total Bilirubin AST ALT Alkaline Phosphatase Total Protein Albumin Globulin Albumin/Globulin Ratio Urine Color Urine Clarity Urine pH Ur Specific [place] Urine Protein Urine Glucose (UA) Urine Ketones Urine Blood Urine Nitrate Urine Bilirubin Urine Urobilinogen Ur Leukocyte Esterase Urine RBC (Auto) Ur Squamous Epith Cells Urine Bacteria Hyaline Casts 12/03/17 12/03/17 12/03/17 02:51 05:20 05:20 WBC 7.7 RBC 4.42 Hgb 13.9 Hct 40.8 MCV 92.2 MCH 31.4 H MCHC 34.0 RDW 12.7 Plt Count 184 MPV Neut % (Auto) Lymph % (Auto) [place] % (Auto) Eos % (Auto) Baso % (Auto) Neut # (Auto) Lymph # (Auto) [place] # (Auto) Eos # (Auto) Baso # (Auto) PT INR APTT Sodium 143 Potassium 3.6 Chloride 106 Carbon Dioxide 30 Anion Gap 11 BUN 9 Creatinine 0.5 L Est GFR ( Amer) > 60 Est GFR (Non-Af Amer) > 60 POC Glucose (mg/dL) 98 Random Glucose 84 Calcium 9.4 Total Bilirubin 0.7 AST 15 ALT 20 Alkaline Phosphatase 43 Total Protein 6.3 Albumin 3.6 Globulin 2.7 Albumin/Globulin Ratio 1.3 Urine Color Urine Clarity Urine pH Ur Specific [place] Urine Protein Urine Glucose (UA) Urine Ketones Urine Blood Urine Nitrate Urine Bilirubin Urine Urobilinogen Ur Leukocyte Esterase Urine RBC (Auto) Ur Squamous Epith Cells Urine Bacteria Hyaline Casts Attending/Attestation - Attestation I have personally seen and examined this patient.: Yes I have fully participated in the care of the patient.: Yes I have reviewed all pertinent clinical information: Yes
--- NOTE | 2017-12-02 17:19 | CARD ---
APPROVED REPORT EKG Measurement Heart [id number] <Conclusion> Sinus bradycardia with 1st degree AV block Left axis deviation Inferior infarct, age undetermined Anteroseptal infarct, age undetermined Abnormal ECG
[2017-12-02] MEDS: Sodium Chloride 0.9% 1,000 ML IV SCH (19:21)
[2017-12-02] MEDS: Fluticasone-Salmeterol 250-50mcg Diskus INH SCH (21:13)
[2017-12-02] MEDS: Pantoprazole 40 mg EC Tab PO SCH (21:26)
[2017-12-02] MEDS: Insulin Detemir 100 Units/ml Inj SC SCH (21:38)
[2017-12-03] MEDS: Sodium Chloride 0.9% 1,000 ML IV SCH ×3 (02:00→21:00)
[2017-12-03 07:30] LABS: HEMOGLOBIN 13.9 g/dL (12.0-16.0); MEAN CELL VOLUME 92.2 fl (81.0-99.0); MEAN CORPUSCULAR HEMOGLOBIN 31.4 pg (27.0-31.0); RBC 4.42 Mil/uL (3.80-5.20); RED CELL DISTRIBUTION WIDTH 12.7 % (11.5-14.5); WHITE BLOOD COUNT 7.7 K/uL (4.8-10.8)
[2017-12-03 07:39] LABS: ALB/GLOB RATIO 1.3 (1.0-2.1); ALBUMIN 3.6 g/dL (3.5-5.0); ALT/SGPT 20 U/L (9-52); AST/SGOT 15 U/L (14-36); BLOOD UREA NITROGEN 9 mg/dl (7-17); CALCIUM 9.4 mg/dL (8.4-10.2); GFR AFRICAN-AMERICAN > 60; GFR NON-AFRICAN AMERICAN > 60
[2017-12-03] MEDS: Insulin Lispro (humaLOG) 100 Units/ml Inj SC SCH ×2 (08:30→18:25)
[2017-12-03] MEDS: Pantoprazole 40 mg EC Tab PO SCH ×2 (10:31→18:29)
[2017-12-03] MEDS: Fluticasone-Salmeterol 250-50mcg Diskus INH SCH ×2 (10:51→18:19)
--- NOTE | 2017-12-03 12:33 | CP.PCM.PN ---
<JazzyDomo F - Last Filed: 12/03/17 12:30> Subjective - Date & Time of Evaluation Date of Evaluation: 12/03/17 Time of Evaluation: 07:45 - Subjective Subjective: For ureteral stent placement today. Medically optimized per medical team. DEBRA by bedside. NAEO. Pain controlled, ambulates w/o difficulty. Objective - Vital Signs/Intake and Output Vital Signs (last 24 hours): Temp Pulse Resp BP Pulse Ox 97.7 F 67 20 125/74 96 12/03/17 08:00 12/03/17 09:46 12/03/17 08:00 12/03/17 09:46 12/03/17 08:00 - Medications Medications: Current Medications Albuterol (Ventolin Hfa 90 Mcg/Actuation (8 G)) 1 puff IH Q6H PRN PRN Reason: Wheezing Amiodarone HCl (Cordarone) 200 mg PO DAILY [facility], [facility] Last Admin: 12/03/17 09:45 Dose: 200 mg Amlodipine Besylate (Norvasc) 5 mg PO DAILY [facility] Last Admin: 12/03/17 09:46 Dose: 5 mg Atorvastatin Calcium (Lipitor) 10 mg PO HS [facility], [facility] Last Admin: 12/02/17 21:15 Dose: 10 mg Carvedilol (Coreg) 25 mg PO Q12 [facility] Last Admin: 12/03/17 09:46 Dose: 25 mg Cyanocobalamin (Vitamin B12 1000 Mcg Tab) 1,000 mcg PO DAILY [facility] Last Admin: 12/03/17 10:31 Dose: Not Given Gabapentin (Neurontin) 300 mg PO TID [facility] Last Admin: 12/03/17 10:30 Dose: Not Given Sodium Chloride (Sodium Chloride 0.9%) 1,000 mls @ 100 mls/hr IV .Q10H [facility], [facility] Last Admin: 12/03/17 02:00 Dose: Not Given Insulin Detemir (Levemir) 25 units SC [facility] Last Admin: 12/02/17 21:38 Dose: 25 units Insulin Human Lispro (Humalog) 15 units SC BID [facility] Last Admin: 12/03/17 08:30 Dose: Not Given Ketorolac Tromethamine (Toradol) 15 mg IVP Q6 PRN PRN Reason: Pain, severe (8-10) Last Admin: 12/02/17 21:26 Dose: 15 mg Levetiracetam (Keppra) 1,000 mg PO Q12 [facility] Last Admin: 12/03/17 09:49 Dose: 1,000 mg Pantoprazole Sodium (Protonix Ec Tab) 40 mg PO DAILY [facility] Last Admin: 12/03/17 10:31 Dose: Not Given Risperidone (Risperdal Tab) 1 mg PO DAILY [facility] Last Admin: 12/03/17 10:31 Dose: Not Given Fluticasone/Salmeterol (Advair Diskus 250/50) 1 puff INH BID [facility] Last Admin: 12/03/17 10:51 Dose: Not Given Sennosides (Senokot Tab) 17.2 mg PO HS [facility] Last Admin: 12/02/17 21:17 Dose: 17.2 mg Sertraline HCl (Zoloft) 100 mg PO DAILY [facility] Last Admin: 12/03/17 10:31 Dose: Not Given Tamsulosin HCl (Flomax) 0.4 mg PO DAILY [facility] Last Admin: 12/03/17 09:48 Dose: 0.4 mg Valsartan (Diovan) 160 mg PO DAILY [facility] Last Admin: 12/03/17 09:48 Dose: 160 mg - Labs Labs: 12/03/17 05:20 12/03/17 05:20 PT 11.2 Seconds (9.8-13.1) 12/02/17 10:55 INR 1.0 (0.9-1.2) 12/02/17 10:55 APTT 37.7 Seconds (25.6-37.1) H 12/02/17 10:55 - Constitutional Appears: No Acute Distress - Eye Exam Eye Exam: EOMI - ENT Exam ENT Exam: Mucous Membranes Moist - Neck Exam Neck Exam: Full ROM - Respiratory Exam Respiratory Exam: Clear to Ausculation Bilateral - Cardiovascular Exam Cardiovascular Exam: +S1, +S2 - GI/Abdominal Exam GI & Abdominal Exam: Soft. absent: Tenderness - Extremities Exam Extremities Exam: Full ROM - Neurological Exam Neurological Exam: Alert, Awake, Oriented x3 - Psychiatric Exam Psychiatric exam: Normal Affect, Normal Mood - Skin Skin Exam: Dry, Normal Color, Warm Assessment and Plan - Assessment and Plan (Free Text) Plan: 72 y/o Female with PMH of A-fib, HTN, HLD, seizure disorder, nephrolithiasis, Asthma, uterine CA, gastritis, osteoarthritis and depression admitted to [facility] for evaluation and treatment of right flank pain and hematuria. Nephrolithiasis -Afebrile -CT abdo/pelvis w/o Cont: small approxi 5.6mm calculus proximal right ureter, cardiomegali with small plural effusion, small hiatal hernia, constipation, diverticulosis. -S/p Morphine and s/p Toradol, s/p Flomax, s/p IVF -Urology, Dr. Patel, consult; follow up recom' -Pain management: Toradol -C/w Flomax -NPO, IVF -F/u Urology karin' Hematuria -Possibly due to nephrolithiasis -1 episode -H/H; 13.6/41 -UA: significant for large urine blood, no leuk or nitr -Urology, Dr. Patel, consult; follow up recom' Dysuria -Afebrile -UA: significant for large urine blood, no leuk or nitr -Ucx: follow up A-fib -Hold Zeralto, last dose this morning -Possible surgical intervention, will follow up with Urology -C/w home meds; Amiodarone HTN -Uncontolled -C/w home meds HLD -C/w home meds: Lipitoe 10mg HS Moderate persistent asthma -Controlled -C/w Albuterol, Advair Gastritis -C/w PPI Seizure disorder -C/w home meds; Keppra 1000mg PO Q12 Depression -C/w home meds DVT PPX -SCD <Lidia Britton - Last Filed: 12/03/17 12:36> Objective - Vital Signs/Intake and Output Vital Signs (last 24 hours): Temp Pulse Resp BP Pulse Ox 97.7 F 67 20 125/74 96 12/03/17 08:00 12/03/17 09:46 12/03/17 08:00 12/03/17 09:46 12/03/17 08:00 - Medications Medications: Current Medications Albuterol (Ventolin Hfa 90 Mcg/Actuation (8 G)) 1 puff IH Q6H PRN PRN Reason: Wheezing Amiodarone HCl (Cordarone) 200 mg PO DAILY [facility] Last Admin: 12/03/17 09:45 Dose: 200 mg Amlodipine Besylate (Norvasc) 5 mg PO DAILY [facility] Last Admin: 12/03/17 09:46 Dose: 5 mg Atorvastatin Calcium (Lipitor) 10 mg PO HS [facility] Last Admin: 12/02/17 21:15 Dose: 10 mg Carvedilol (Coreg) 25 mg PO Q12 [facility] Last Admin: 12/03/17 09:46 Dose: 25 mg Cyanocobalamin (Vitamin B12 1000 Mcg Tab) 1,000 mcg PO DAILY [facility] Last Admin: 12/03/17 10:31 Dose: Not Given Gabapentin (Neurontin) 300 mg PO TID [facility] Last Admin: 12/03/17 10:30 Dose: Not Given Sodium Chloride (Sodium Chloride 0.9%) 1,000 mls @ 100 mls/hr IV .Q10H [facility] Last Admin: 12/03/17 02:00 Dose: Not Given Insulin Detemir (Levemir) 25 units SC [facility] Last Admin: 12/02/17 21:38 Dose: 25 units Insulin Human Lispro (Humalog) 15 units SC BID [facility] Last Admin: 12/03/17 08:30 Dose: Not Given Ketorolac Tromethamine (Toradol) 15 mg IVP Q6 PRN PRN Reason: Pain, severe (8-10) Last Admin: 12/02/17 21:26 Dose: 15 mg Levetiracetam (Keppra) 1,000 mg PO Q12 [facility] Last Admin: 12/03/17 09:49 Dose: 1,000 mg Pantoprazole Sodium (Protonix Ec Tab) 40 mg PO DAILY [facility] Last Admin: 12/03/17 10:31 Dose: Not Given Risperidone (Risperdal Tab) 1 mg PO DAILY [facility] Last Admin: 12/03/17 10:31 Dose: Not Given Fluticasone/Salmeterol (Advair Diskus 250/50) 1 puff INH BID [facility] Last Admin: 12/03/17 10:51 Dose: Not Given Sennosides (Senokot Tab) 17.2 mg PO [facility] Last Admin: 12/02/17 21:17 Dose: 17.2 mg Sertraline HCl (Zoloft) 100 mg PO DAILY [facility] Last Admin: 12/03/17 10:31 Dose: Not Given Tamsulosin HCl (Flomax) 0.4 mg PO DAILY [facility] Last Admin: 12/03/17 09:48 Dose: 0.4 mg Valsartan (Diovan) 160 mg PO DAILY [facility] Last Admin: 12/03/17 09:48 Dose: 160 mg - Labs Labs: 12/03/17 05:20 12/03/17 05:20 PT 11.2 Seconds (9.8-13.1) 12/02/17 10:55 INR 1.0 (0.9-1.2) 12/02/17 10:55 APTT 37.7 Seconds (25.6-37.1) H 12/02/17 10:55 Attending/Attestation - Attestation I have personally seen and examined this patient.: Yes I have fully participated in the care of the patient.: Yes I have reviewed all pertinent clinical information, including history, physical exam and plan: Yes
[2017-12-03] MEDS ORDERED: Ciprofloxacin 400mg/200ml D5W 400 MG/200 ML BAG IVPB ONE (15:55)
[2017-12-03] MEDS ORDERED: Lactated Ringer's 1,000 ML IV ONE (16:00)
[2017-12-03] MEDS ORDERED: Propofol 10 mg/ml Inj (20 ML) ONE (16:01)
[2017-12-03] MEDS ORDERED: Ciprofloxacin 400mg/200ml D5W IVPB ONE (16:10)
[2017-12-03] MEDS ORDERED: ePHEDrine 50 mg/ml Inj ONE (16:25)
[2017-12-03] MEDS: Insulin Detemir 100 Units/ml Inj SC SCH (22:15)
[2017-12-04 07:44] LABS: BASO % 0.3 % (0.0-2.0); EOS % 0.5 % (0.0-4.0); HEMOGLOBIN 12.8 g/dL (12.0-16.0); LYMPH # 1.5 K/uL (1.0-4.3); LYMPH % 20.4 % (20.0-40.0); MEAN CELL VOLUME 92.5 fl (81.0-99.0); MEAN CORPUSCULAR HEMOGLOBIN 30.8 pg (27.0-31.0); MEAN CORPUSCULAR HGB CONC 33.3 g/dL (33.0-37.0); MEAN PLATELET VOLUME 9.7 fl (7.2-11.7); MONO # 0.7 K/uL (0.0-0.8); MONO % 9.9 % (0.0-10.0); NEUT # 5.2 K/uL (1.8-7.0); NEUT % 68.9 % (50.0-75.0); RBC 4.16 Mil/uL (3.80-5.20); RED CELL DISTRIBUTION WIDTH 12.9 % (11.5-14.5); WHITE BLOOD COUNT 7.5 K/uL (4.8-10.8)
[2017-12-04 08:00] LABS: ALB/GLOB RATIO 1.3 (1.0-2.1); ALBUMIN 3.3 g/dL (3.5-5.0); ALT/SGPT 33 U/L (9-52); AST/SGOT 17 U/L (14-36); BLOOD UREA NITROGEN 8 mg/dl (7-17); GFR AFRICAN-AMERICAN > 60; GFR NON-AFRICAN AMERICAN > 60
[2017-12-04 08:23] VITALS: BP 115/60; PULSE 57; RESP 20; TEMP 97.9; O2SAT 96
--- NOTE | 2017-12-04 08:47 | RAD ---
HISTORY: S/P Stent placement COMPARISON: CT scan of the abdomen and pelvis dated 12/02/2017. FINDINGS: BOWEL: Normal. No obstruction. No free air. BONES: Degenerative changes. OTHER FINDINGS: New right double-J ureteral stent. Known proximal right ureteropelvic junction calculus not well-visualized on the current examination. Right upper quadrant surgical clips. IMPRESSION: New right double-J ureteral stent. Known proximal right ureteropelvic junction calculus not well-visualized on the current examination.
[2017-12-04] MEDS: Fluticasone-Salmeterol 250-50mcg Diskus INH SCH (09:01)
[2017-12-04] MEDS: Pantoprazole 40 mg EC Tab PO SCH (09:07)
[2017-12-04] MEDS: Insulin Lispro (humaLOG) 100 Units/ml Inj SC SCH (09:09)
--- NOTE | 2017-12-04 11:09 | CP.PCM.DIS ---
<oTñoSbjessi - Last Filed: 12/04/17 12:07> Provider - Provider Date of Admission: 12/02/17 13:17 Attending physician: Petra Mcmillan MD Primary care physician: Dr. Major Consults: Urology, Dr. Patel Time Spent in preparation of Discharge (in minutes): 40 Diagnosis - Discharge Diagnosis (1) Right ureteral calculus Status: Chronic Comment: S/p Stent Hospital Course - Lab Results Lab Results: Micro Results 12/02/17 10:00 Urine,Clean Catch Urine Culture - Final No Growth (<1,000 CFU/ML) Most Recent Lab Values WBC 7.5 K/uL (4.8-10.8) 12/04/17 05:20 RBC 4.16 Mil/uL (3.80-5.20) 12/04/17 05:20 Hgb 12.8 g/dL (12.0-16.0) 12/04/17 05:20 Hct 38.5 % (34.0-47.0) 12/04/17 05:20 MCV 92.5 fl (81.0-99.0) 12/04/17 05:20 MCH 30.8 pg (27.0-31.0) 12/04/17 05:20 MCHC 33.3 g/dL (33.0-37.0) 12/04/17 05:20 RDW 12.9 % (11.5-14.5) 12/04/17 05:20 Plt Count 164 K/uL (130-400) 12/04/17 05:20 MPV 9.7 fl (7.2-11.7) 12/04/17 05:20 Neut % (Auto) 68.9 % (50.0-75.0) 12/04/17 05:20 Lymph % (Auto) 20.4 % (20.0-40.0) 12/04/17 05:20 [place] % (Auto) 9.9 % (0.0-10.0) 12/04/17 05:20 Eos % (Auto) 0.5 % (0.0-4.0) 12/04/17 05:20 Baso % (Auto) 0.3 % (0.0-2.0) 12/04/17 05:20 Neut # (Auto) 5.2 K/uL (1.8-7.0) 12/04/17 05:20 Lymph # (Auto) 1.5 K/uL (1.0-4.3) 12/04/17 05:20 [place] # (Auto) 0.7 K/uL (0.0-0.8) 12/04/17 05:20 Eos # (Auto) 0.0 K/uL (0.0-0.7) 12/04/17 05:20 Baso # (Auto) 0.0 K/uL (0.0-0.2) 12/04/17 05:20 PT 11.2 Seconds (9.8-13.1) 12/02/17 10:55 INR 1.0 (0.9-1.2) 12/02/17 10:55 APTT 37.7 Seconds (25.6-37.1) H 12/02/17 10:55 Sodium 141 mmol/l (132-148) 12/04/17 05:20 Potassium 3.9 MMOL/L (3.6-5.0) 12/04/17 05:20 Chloride 104 mmol/L (98-107) 12/04/17 05:20 Carbon Dioxide 28 mmol/L (22-30) 12/04/17 05:20 Anion Gap 13 (10-20) 12/04/17 05:20 BUN 8 mg/dl (7-17) 12/04/17 05:20 Creatinine 0.6 mg/dl (0.7-1.2) L 12/04/17 05:20 Est GFR ( Amer) > 60 12/04/17 05:20 Est GFR (Non-Af Amer) > 60 12/04/17 05:20 POC Glucose (mg/dL) 130 mg/dL (65-110) H 12/03/17 21:31 Random Glucose 134 mg/dL (65-105) H 12/04/17 05:20 Calcium 9.0 mg/dL (8.4-10.2) 12/04/17 05:20 Total Bilirubin 0.7 mg/dl (0.2-1.3) 12/04/17 05:20 AST 17 U/L (14-36) 12/04/17 05:20 ALT 33 U/L (9-52) 12/04/17 05:20 Alkaline Phosphatase 39 U/L (38-126) 12/04/17 05:20 Total Protein 5.9 G/DL (6.3-8.2) L 12/04/17 05:20 Albumin 3.3 g/dL (3.5-5.0) L 12/04/17 05:20 Globulin 2.6 gm/dL (2.2-3.9) 12/04/17 05:20 Albumin/Globulin Ratio 1.3 (1.0-2.1) 12/04/17 05:20 Urine Color Straw (YELLOW) 12/02/17 10:00 Urine Clarity Cloudy (Clear) 12/02/17 10:00 Urine pH 7.0 (5.0-8.0) 12/02/17 10:00 Ur Specific [place] 1.013 (1.003-1.030) 12/02/17 10:00 Urine Protein Negative mg/dL (NEGATIVE) 12/02/17 10:00 Urine Glucose (UA) Neg mg/dL (Normal) 12/02/17 10:00 Urine Ketones Negative mg/dL (NEGATIVE) 12/02/17 10:00 Urine Blood Large (NEGATIVE) 12/02/17 10:00 Urine Nitrate Negative (NEGATIVE) 12/02/17 10:00 Urine Bilirubin Negative (NEGATIVE) 12/02/17 10:00 Urine Urobilinogen 0.2-1.0 mg/dL (0.2-1.0) 12/02/17 10:00 Ur Leukocyte Esterase Neg Gage/uL (Negative) 12/02/17 10:00 Urine RBC (Auto) 933 /hpf (0-3) H 12/02/17 10:00 Ur Squamous Epith Cells < 1 /hpf (0-5) 12/02/17 10:00 Urine Bacteria Rare (<OCC) 12/02/17 10:00 Hyaline Casts 0-2 /hpf (0-2) 12/02/17 10:00 - Hospital Course Hospital Course: 72 y/o Female with PMH of A-fib, HTN, HLD, seizure disorder, nephrolithiasis, Asthma, uterine CA, gastritis, osteoarthritis and depression admitted to [facility] for evaluation and treatment of right flank pain and hematuria. CT abdo/pelvis w /o Cont: small approxi 5.6mm calculus proximal right ureter, cardiomegali with small plural effusion, small hiatal hernia, constipation, diverticulosis. Urology was consulted, Dr. Patel, patient is s/p stent placement 12/03/17. Pain is controlled, cleared by urology for discharge. Patient to be discharged with instructions to follow up with PMD with in a week, Pain management; PRN motrin, START Zeralto after no hematuria (as per urology). Discharge Exam - Head Exam Head Exam: NORMAL INSPECTION - Eye Exam Eye Exam: Normal appearance Pupil Exam: NORMAL ACCOMODATION - ENT Exam ENT Exam: Mucous Membranes Moist - Neck Exam Neck exam: Full Rom - Respiratory Exam Respiratory Exam: Clear to PA & Lateral, NORMAL BREATHING PATTERN - Cardiovascular Exam Cardiovascular Exam: REGULAR RHYTHM - GI/Abdominal Exam GI & Abdominal Exam: Firm, Normal Bowel Sounds, Soft. absent: Distended, Tenderness - Extremities Exam Extremities exam: full ROM, normal capillary refill, pedal pulses present - Back Exam Back exam: NORMAL INSPECTION. absent: CVA tenderness (L), CVA tenderness (R) - Neurological Exam Neurological exam: Alert, CN II-XII Intact, Oriented x3, Reflexes Normal - Psychiatric Exam Psychiatric exam: Normal Affect, Normal Mood - Skin Skin Exam: Dry, Intact, Normal Color, Warm Discharge Plan - Follow Up Plan Condition: STABLE Disposition: HOME/ ROUTINE Instructions: Ureteral Stent Additional Instructions: STABLE TO DC HOME TODAY F/U PMD IN 2-3 DAYS PAIN CONTROL WITH IBUPROPHEN OTC WITH FOOD ONLY ONLY RESUME XARELTO AFTER HEMATURIA STOPS PER DR PATEL, UROLOGY Referrals: Jaron Major MD [Staff Provider] - Fausto Patel MD [Medical Doctor] - <Lidia Britton - Last Filed: 12/05/17 07:11> Provider - Provider Date of Admission: 12/02/17 13:17 Attending physician: Petra Mcmillan MD Hospital Course - Lab Results Lab Results: Micro Results 12/02/17 10:00 Urine,Clean Catch Urine Culture - Final No Growth (<1,000 CFU/ML) Most Recent Lab Values WBC 7.5 K/uL (4.8-10.8) 12/04/17 05:20 RBC 4.16 Mil/uL (3.80-5.20) 12/04/17 05:20 Hgb 12.8 g/dL (12.0-16.0) 12/04/17 05:20 Hct 38.5 % (34.0-47.0) 12/04/17 05:20 MCV 92.5 fl (81.0-99.0) 12/04/17 05:20 MCH 30.8 pg (27.0-31.0) 12/04/17 05:20 MCHC 33.3 g/dL (33.0-37.0) 12/04/17 05:20 RDW 12.9 % (11.5-14.5) 12/04/17 05:20 Plt Count 164 K/uL (130-400) 12/04/17 05:20 MPV 9.7 fl (7.2-11.7) 12/04/17 05:20 Neut % (Auto) 68.9 % (50.0-75.0) 12/04/17 05:20 Lymph % (Auto) 20.4 % (20.0-40.0) 12/04/17 05:20 [place] % (Auto) 9.9 % (0.0-10.0) 12/04/17 05:20 Eos % (Auto) 0.5 % (0.0-4.0) 12/04/17 05:20 Baso % (Auto) 0.3 % (0.0-2.0) 12/04/17 05:20 Neut # (Auto) 5.2 K/uL (1.8-7.0) 12/04/17 05:20 Lymph # (Auto) 1.5 K/uL (1.0-4.3) 12/04/17 05:20 [place] # (Auto) 0.7 K/uL (0.0-0.8) 12/04/17 05:20 Eos # (Auto) 0.0 K/uL (0.0-0.7) 12/04/17 05:20 Baso # (Auto) 0.0 K/uL (0.0-0.2) 12/04/17 05:20 PT 11.2 Seconds (9.8-13.1) 12/02/17 10:55 INR 1.0 (0.9-1.2) 12/02/17 10:55 APTT 37.7 Seconds (25.6-37.1) H 12/02/17 10:55 Sodium 141 mmol/l (132-148) 12/04/17 05:20 Potassium 3.9 MMOL/L (3.6-5.0) 12/04/17 05:20 Chloride 104 mmol/L (98-107) 12/04/17 05:20 Carbon Dioxide 28 mmol/L (22-30) 12/04/17 05:20 Anion Gap 13 (10-20) 12/04/17 05:20 BUN 8 mg/dl (7-17) 12/04/17 05:20 Creatinine 0.6 mg/dl (0.7-1.2) L 12/04/17 05:20 Est GFR ( Amer) > 60 12/04/17 05:20 Est GFR (Non-Af Amer) > 60 12/04/17 05:20 POC Glucose (mg/dL) 130 mg/dL (65-110) H 12/03/17 21:31 Random Glucose 134 mg/dL (65-105) H 12/04/17 05:20 Calcium 9.0 mg/dL (8.4-10.2) 12/04/17 05:20 Total Bilirubin 0.7 mg/dl (0.2-1.3) 12/04/17 05:20 AST 17 U/L (14-36) 12/04/17 05:20 ALT 33 U/L (9-52) 12/04/17 05:20 Alkaline Phosphatase 39 U/L (38-126) 12/04/17 05:20 Total Protein 5.9 G/DL (6.3-8.2) L 12/04/17 05:20 Albumin 3.3 g/dL (3.5-5.0) L 12/04/17 05:20 Globulin 2.6 gm/dL (2.2-3.9) 12/04/17 05:20 Albumin/Globulin Ratio 1.3 (1.0-2.1) 12/04/17 05:20 Urine Color Straw (YELLOW) 12/02/17 10:00 Urine Clarity Cloudy (Clear) 12/02/17 10:00 Urine pH 7.0 (5.0-8.0) 12/02/17 10:00 Ur Specific [place] 1.013 (1.003-1.030) 12/02/17 10:00 Urine Protein Negative mg/dL (NEGATIVE) 12/02/17 10:00 Urine Glucose (UA) Neg mg/dL (Normal) 12/02/17 10:00 Urine Ketones Negative mg/dL (NEGATIVE) 12/02/17 10:00 Urine Blood Large (NEGATIVE) 12/02/17 10:00 Urine Nitrate Negative (NEGATIVE) 12/02/17 10:00 Urine Bilirubin Negative (NEGATIVE) 12/02/17 10:00 Urine Urobilinogen 0.2-1.0 mg/dL (0.2-1.0) 12/02/17 10:00 Ur Leukocyte Esterase Neg Gage/uL (Negative) 12/02/17 10:00 Urine RBC (Auto) 933 /hpf (0-3) H 12/02/17 10:00 Ur Squamous Epith Cells < 1 /hpf (0-5) 12/02/17 10:00 Urine Bacteria Rare (<OCC) 12/02/17 10:00 Hyaline Casts 0-2 /hpf (0-2) 12/02/17 10:00 Attending/Attestation - Attestation I have personally seen and examined this patient.: Yes I have fully participated in the care of the patient.: Yes I have reviewed all pertinent clinical information, including history, physical exam and plan: Yes
--- NOTE | 2017-12-05 09:11 | OP ---
PROCEDURE DATE: 12/03/2017 SURGEON: Fasuto Patel MD ANESTHESIOLOGIST: Mandy Pacheco MD ANESTHESIA: General LMA PROCEDURE: Cystoscopy Stent Placement DESCRIPTION OF PROCEDURE: This is a 72-year-old female with obstructing right ureteral calculus. The patient was brought to the OR, prepped and draped in the usual manner after general anesthesia given. Cystoscopy was done with insertion of free 5- wire into the right ureter. A double J stent was then placed over the wire and the wire removed. There was good position of the stent. POST-OP CONDITION: The patient tolerated the procedure well and left the OR in good condition. Fausto Patel MD MTDD
== END 2017-12-04 12:24 | disposition home or self-care (01) ==
LOC: H.ER 08:41 → H.ERHOLD 13:17 → H.MEDSURG1 16:10
PROVIDERS: ADMIT Family Medicine Geriatric Medicine; ATTEND Family Medicine Geriatric Medicine
DX: N20.2 Calculus of kidney with calculus of ureter (principal); J45.40 Moderate persistent asthma, uncomplicated; I48.91 Unspecified atrial fibrillation; K29.70 Gastritis, unspecified, without bleeding; I10 Essential (primary) hypertension; E78.00 Pure hypercholesterolemia, unspecified; E78.5 Hyperlipidemia, unspecified; F32.9 Major depressive disorder, single episode, unspecified; E11.9 Type 2 diabetes mellitus without complications; F03.90 Unspecified dementia, unspecified severity, without behavioral disturbance, psychotic disturbance, mood disturbance, and anxiety; G40.909 Epilepsy, unspecified, not intractable, without status epilepticus; M19.90 Unspecified osteoarthritis, unspecified site; R31.9 Hematuria, unspecified; R30.0 Dysuria; Z85.42 Personal history of malignant neoplasm of other parts of uterus; Z79.01 Long term (current) use of anticoagulants; Z86.73 Personal history of transient ischemic attack (TIA), and cerebral infarction without residual deficits
CPT/HCPCS: 36415; 52332; 71045; 74018; 74176; 80053; 81003; 82948; 85025; 85027; 85610; 85730; 87086; 93005; 96374; 99283; C2617; G0378; J0744; J1885; J2270; J2704; J3010; J7030; J7120

== ENCOUNTER 2018-07-08 12:42 | Emergency (ER) | payer MEDICARE, OTHER ==
[2018-07-08 12:42] VITALS: BMI 35.4
[2018-07-08 13:04] VITALS: TEMP 97.8; O2SAT 98
--- NOTE | 2018-07-08 13:27 | ED PDOC ---
HPI: Back Time Seen by Provider: 07/08/18 13:02 Chief Complaint (Nursing): Back Pain Chief Complaint (Provider): Back Pain History Per: Patient History/Exam Limitations: no limitations Onset/Duration Of Symptoms: Days (x2) Current Symptoms Are (Timing): Still Present Additional Complaint(s): Patient is a 73 y/o female with a PMHx of HTN, hypercholesterolemia, asthma, a trial fibrillation, back problems, malignancy, bronchitis, cardiac arrhythmia, CVA, dementia, diabetes, gall bladder disease, seizures, and schizophrenia who presents to the ED for evaluation left sided back pain and leg pain ongoing for the past two days. Patient reports to have trouble sleeping because she is uncomfortable. Patient states to have been taking Tylenol, Ibuprofen, and Gabapentin for relief. Patient last took Ibuprofen 200 mg today at 9:00. Patient denies numbness or tingling in left foot, weakness, fever, chills, or night sweats. Of note, patient claims to have a history of sciatica, stating the pain is similar to her experiences in the past. PCP: Dr. Jaron Major Past Medical History Reviewed: Historical Data, Nursing Documentation, Vital Signs Vital Signs: Last Vital Signs Temp 97.8 F 07/08/18 13:01 Pulse 63 07/08/18 13:01 Resp 18 07/08/18 13:01 BP 162/73 H 07/08/18 13:01 Pulse Ox 98 07/08/18 13:01 ABEBE Report Viewed: Yes - Medical History PMH: Asthma, Atrial Fibrillation, Back Problems, Bronchitis, Cardia Arrhythmia, CVA (with right-sided deficit), Dementia (per old chart), Diabetes, Gall Bladder Disease, HTN, Hypercholesterolemia, Malignancy (ovarian cancer x2), Schizophrenia, Seizures (last was 1 year ago) Denies: Hepatitis, HIV, Chronic Kidney Disease, Sexually Transmitted Disease Other PMH: sciatica - Surgical History Surgical History: Appendectomy, Cholecystectomy, Tonsillectomy - Family History Family History: States: Unknown Family Hx - Immunization History Hx Influenza Vaccination: Yes - Home Medications Home Medications: Ambulatory Orders Medication Instructions Recorded Amiodarone [Cordarone] 200 mg PO DAILY 06/02/16 Amlodipine/Valsartan [Exforge 1 tab PO DAILY 06/02/16 5-160 mg Tablet] Atorvastatin Calcium 10 mg PO HS 06/02/16 Carvedilol [Coreg] 25 mg PO Q12 06/02/16 Gabapentin [Neurontin] 300 mg PO TID 06/02/16 Insulin Glargine, Recombina 25 unit SC HS 06/02/16 [Lantus] Cyanocobalamin [Vitamin B12 1000 1,000 mcg PO DAILY 11/23/16 mcg Tab] Insulin Lispro [humALOG] 15 unit SC BID 11/23/16 levETIRAcetam [Keppra] 1,000 mg PO Q12H 11/23/16 Albuterol HFA [Ventolin HFA 90 2 puff IH Q4H PRN inhaler 11/27/16 mcg/actuation (8 g)] Pantoprazole [Protonix EC Tab] 40 mg PO DAILY ect 11/27/16 Albuterol Sulfate [Proair Hfa] 0.09 mg IH Q6H PRN #2 inh 06/22/17 Tamsulosin [Flomax] 0.4 mg PO DAILY #10 cap 11/13/17 Fluticasone/Salmeterol 250/50 1 inh INH BID 12/02/17 [Advair Diskus 250/50] Sertraline [Zoloft] 100 mg PO DAILY 12/02/17 risperiDONE [RisperDAL Tab] 1 tab PO DAILY 12/02/17 Rivaroxaban [Xarelto] 20 mg PO HS #0 12/04/17 Cyclobenzaprine [Cyclobenzaprine 10 mg PO Q8 PRN 7 Days tab 07/08/18 HCl] Ibuprofen [Motrin Tab] 600 mg PO Q6 PRN 7 Days tab 07/08/18 - Allergies Allergies/Adverse Reactions: Allergies Allergy/AdvReac Type Severity Reaction Status Date / Time No Known Allergies Allergy Verified 07/08/18 13:00 Review of Systems ROS Statement: Except As Marked, All Systems Reviewed And Found Negative Constitutional: Negative for: Fever, Chills, Sweats (night), Weakness Musculoskeletal: Positive for: Back Pain (left sided), Leg Pain Neurological: Negative for: Numbness (or tingling in left foot) Physical Exam - Reviewed Nursing Documentation Reviewed: Yes Vital Signs Reviewed: Yes - Physical Exam Appears: Positive for: Uncomfortable Head Exam: Positive for: ATRAUMATIC, NORMAL INSPECTION, NORMOCEPHALIC Pulses-Dorsalis Pedis (L): 2+ Extremity: Positive for: Normal ROM (Sensation to light touch equal on bilateral lower extremity; Pain on flexion of back and left hip), Tenderness (on left buttock that radiates down left leg on palpation), Capillary Refill (less than 2 seconds). Negative for: Other (echymosis, erythema, or swelling) Neurologic/Psych: Positive for: Alert, Oriented - ECG O2 Sat by Pulse Oximetry: 98 (RA) Pulse Ox Interpretation: Normal Medical Decision Making Medical Decision Making: Time: 1310 Plan: Flexeril 10 mg PO Toradol 15 mg IM Re-evaluated prior to d/c. Back pain has improved. Stable for d/c home. Scribe Attestation: Documented by Fritz Villalpando, acting as a scribe for Morelia CHILD. Provider Scribe Attestation: All medical record entries made by the Scribe were at my direction and personally dictated by me. I have reviewed the chart and agree that the record accurately reflects my personal performance of the history, physical exam, medical decision making, and the department course for this patient. I have also personally directed, reviewed, and agree with the discharge instructions and disposition. Disposition - Clinical Impression Clinical Impression: Sciatica - Patient ED Disposition Is Patient to be Admitted: No Counseled Patient/Family Regarding: Studies Performed, Diagnosis, Need For Followup - Disposition Referrals: Jaron Major MD [Family Provider] - Disposition: Routine/Home Disposition Time: 15:03 Condition: STABLE Additional Instructions: Use Flexeril and Ibuprofen for pain. Care with Flexeril as it can make you sleepy so do not operate heavy/dangerous machinery or drive while taking it. Perform sciatica exercises as they can help with the pain. F/u with your primary care doctor as needed for further pain management. Return to ER if pain is unbearable or if you develop weakness. Prescriptions: Cyclobenzaprine [Cyclobenzaprine HCl] 10 mg PO Q8 PRN 7 Days tab PRN Reason: Pain, Moderate (4-7) Ibuprofen [Motrin Tab] 600 mg PO Q6 PRN 7 Days tab PRN Reason: Pain, Moderate (4-7) Instructions: Sciatica (DC), Sciatica Exercises Forms: [employer] (Maldivian), [employer] (Irish) Print Language: LATVIAN
[2018-07-08 14:41] VITALS: BP 150/70; PULSE 55; RESP 19
== END 2018-07-08 15:03 | disposition home or self-care (01) ==
LOC: H.ER 12:42
DX: M54.30 Sciatica, unspecified side (principal); E11.9 Type 2 diabetes mellitus without complications; F03.90 Unspecified dementia, unspecified severity, without behavioral disturbance, psychotic disturbance, mood disturbance, and anxiety; Z86.59 Personal history of other mental and behavioral disorders; I10 Essential (primary) hypertension; J45.909 Unspecified asthma, uncomplicated; Z79.4 Long term (current) use of insulin; Z85.43 Personal history of malignant neoplasm of ovary; Z86.73 Personal history of transient ischemic attack (TIA), and cerebral infarction without residual deficits; R56.9 Unspecified convulsions
CPT/HCPCS: 96372; 99283; J1885

== ENCOUNTER 2018-10-11 09:11 | Observation (INO) | payer MEDICARE, OTHER ==
[2018-10-11 09:11] VITALS: BMI 35.4
[2018-10-11] MEDS ORDERED: Albuterol 0.083% Inhal Sol (2.5 mg/3 mL) UD INH ONE (10:09)
[2018-10-11] MEDS ORDERED: Albuterol 0.083% Inhal Sol (2.5 mg/3 mL) UD ONE (10:15)
--- NOTE | 2018-10-11 10:26 | ED PDOC ---
HPI: SOB/CHF/COPD Time Seen by Provider: 10/11/18 09:20 Chief Complaint (Nursing): Shortness Of Breath Chief Complaint (Provider): Shortness Of Breath History Per: Patient History/Exam Limitations: no limitations Onset/Duration Of Symptoms: Days Current Symptoms Are (Timing): Still Present Associated Symptoms: denies: Fever, Leg/Calf Pain Additional Complaint(s): 73 year old female with a past medical history of hypertension, diabetes, and as thma, seizure, who is presenting to the ED with for evaluation of shortness of breath onset last night. Patient reports that symptoms are worse with deep breathing and admits that she experienced some palpitations. She denies any fevers, cough, or leg swelling but does state that she has some heart problems, but is unable to explain further. Patient offers no other medical complaints at this time. PMD: Dr. Major, [facility] Past Medical History Reviewed: Historical Data, Nursing Documentation, Vital Signs Vital Signs: Last Vital Signs Temp 97.6 F 10/11/18 09:23 Pulse 69 10/11/18 09:23 Resp 20 10/11/18 09:23 BP 159/81 H 10/11/18 09:23 Pulse Ox 98 10/11/18 09:23 - Medical History PMH: Anxiety, Asthma, Atrial Fibrillation, Back Problems, Bronchitis, Cardia Arrhythmia, CVA (with right-sided deficit), Dementia (per old chart), Diabetes, Gall Bladder Disease, HTN, Hypercholesterolemia, Malignancy (ovarian cancer x2), Schizophrenia, Seizures (last was 1 year ago) Denies: Hepatitis, HIV, Chronic Kidney Disease, Sexually Transmitted Disease - Surgical History Surgical History: Appendectomy, Cholecystectomy, Tonsillectomy - Family History Family History: States: Unknown Family Hx - Social History Current smoker - smoking cessation education provided: No Ex-Smoker (has not smoked in the last 12 months): Yes Alcohol: None Drugs: Denies - Immunization History Hx Influenza Vaccination: Yes - Home Medications Home Medications: Ambulatory Orders Medication Instructions Recorded Amiodarone [Cordarone] 200 mg PO DAILY 06/02/16 Amlodipine/Valsartan [Exforge 1 tab PO DAILY 06/02/16 5-160 mg Tablet] Atorvastatin Calcium 10 mg PO DAILY 06/02/16 Carvedilol [Coreg] 25 mg PO Q12 06/02/16 Gabapentin [Neurontin] 300 mg PO Q8 06/02/16 Insulin Glargine, Recombina 5 unit SC DAILY 06/02/16 [Lantus] Cyanocobalamin [Vitamin B12 1000 1,000 mcg PO DAILY 11/23/16 mcg Tab] Insulin Lispro [humALOG] 15 unit SC BID 11/23/16 Fluticasone/Salmeterol 250/50 1 puff IH Q12 12/02/17 [Advair Diskus 250/50] Rivaroxaban [Xarelto] 20 mg PO HS #0 12/04/17 MetFORMIN [glucoPHAGE] 1,000 mg PO BID 10/11/18 Risperidone [Risperdal] 0.5 mg PO HS 10/11/18 Sertraline [Zoloft] 50 mg PO DAILY 10/11/18 - Allergies Allergies/Adverse Reactions: Allergies Allergy/AdvReac Type Severity Reaction Status Date / Time No Known Allergies Allergy Verified 10/11/18 09:23 Review of Systems ROS Statement: Except As Marked, All Systems Reviewed And Found Negative Constitutional: Negative for: Fever Cardiovascular: Positive for: Palpitations Respiratory: Positive for: Shortness of Breath. Negative for: Cough Musculoskeletal: Negative for: Leg Pain Physical Exam - Reviewed Nursing Documentation Reviewed: Yes Vital Signs Reviewed: Yes - Physical Exam Appears: Positive for: Non-toxic, No Acute Distress Head Exam: Positive for: ATRAUMATIC, NORMAL INSPECTION, NORMOCEPHALIC Skin: Positive for: Normal Color, Warm, DRY Eye Exam: Positive for: EOMI, Normal appearance, PERRL ENT: Positive for: Normal ENT Inspection Neck: Positive for: Normal, Painless ROM, Supple Cardiovascular/Chest: Positive for: Regular Rate, Rhythm. Negative for: Murmur Respiratory: Positive for: Normal Breath Sounds. Negative for: Wheezing, Respiratory Distress Gastrointestinal/Abdominal: Positive for: Normal Exam, Soft. Negative for: Tenderness Back: Positive for: Normal Inspection Extremity: Positive for: Normal ROM. Negative for: Deformity, Swelling Neurological/Psych: Positive for: Awake, Alert, Normal Tone, Oriented. Negative for: Motor/Sensory Deficits - Laboratory Results Result Diagrams: 10/11/18 10:00 10/11/18 10:00 - ECG ECG Rhythm: Positive for: Normal QRS, Normal ST Segment, Sinus Rhythm Rate: 64 O2 Sat by Pulse Oximetry: 98 (RA) Pulse Ox Interpretation: Normal Medical Decision Making Medical Decision Making: Time: 10:09 Plan: Sob, palpitations rule out pneumonia, cardiac etiology, chf --EKG --BNP --CMP --Troponin --CBC --CXR --Albuterol 2.5 mg INH --Peak Flow Pre/Post Tx Chest x-ray: HISTORY: sob COMPARISON: Chest x-ray performed 12/02/17 TECHNIQUE: Chest PA and lateral, 2 views FINDINGS: LUNGS: No focal consolidation. Please note that chest x-ray has limited sensitivity for the detection of pulmonary masses. PLEURA: No significant pleural effusion identified. No definite pneumothorax . CARDIOVASCULAR: Borderline cardiomegaly. Atherosclerotic calcification of the aorta. OSSEOUS STRUCTURES: Degenerative changes of the spine. VISUALIZED UPPER ABDOMEN: Unremarkable. OTHER FINDINGS: None. IMPRESSION: No focal consolidation. 12:33 patient still reporting shortness of breath and palpitations. Will admit for observation. Will contact Hospitalist who will contact Dr Major/clinic team. Accepted by Dr Pineda. -- Scribe Attestation: Documented by Sidra Friedman, acting as a scribe for Zaheer Schulz MD. Provider Scribe Attestation: All medical record entries made by the Scribe were at my direction and personally dictated by me. I have reviewed the chart and agree that the record accurately reflects my personal performance of the history, physical exam, medical decision making, and the department course for this patient. I have also personally directed, reviewed, and agree with the discharge instructions and disposition. Disposition - Clinical Impression Clinical Impression: Dyspnea, Palpitations - Patient ED Disposition Is Patient to be Admitted: Yes Counseled Patient/Family Regarding: Studies Performed, Diagnosis - Disposition Disposition Time: 12:30 Condition: STABLE
[2018-10-11 10:56] LABS: BASO % 0.6 % (0.0-2.0); EOS # 0.1 K/uL (0.0-0.7); EOS % 1.1 % (0.0-4.0); LYMPH # 1.3 K/uL (1.0-4.3); LYMPH % 24.1 % (20.0-40.0); MEAN CELL VOLUME 91.2 fl (81.0-99.0); MEAN CORPUSCULAR HGB CONC 32.8 g/dL (33.0-37.0); MEAN PLATELET VOLUME 9.5 fl (7.2-11.7); MONO # 0.5 K/uL (0.0-0.8); MONO % 9.2 % (0.0-10.0); NEUT # 3.6 K/uL (1.8-7.0); NRBC % 0.1 % (0.0-0.0); RBC 4.69 Mil/uL (3.80-5.20); RED CELL DISTRIBUTION WIDTH 14.5 % (11.5-14.5); WHITE BLOOD COUNT 5.5 K/uL (4.8-10.8)
--- NOTE | 2018-10-11 11:00 | RAD ---
HISTORY: sob COMPARISON: Chest x-ray performed 12/02/17 TECHNIQUE: Chest PA and lateral, 2 views FINDINGS: LUNGS: No focal consolidation. Please note that chest x-ray has limited sensitivity for the detection of pulmonary masses. PLEURA: No significant pleural effusion identified. No definite pneumothorax . CARDIOVASCULAR: Borderline cardiomegaly. Atherosclerotic calcification of the aorta. OSSEOUS STRUCTURES: Degenerative changes of the spine. VISUALIZED UPPER ABDOMEN: Unremarkable. OTHER FINDINGS: None. IMPRESSION: No focal consolidation.
[2018-10-11 11:21] LABS: ALB/GLOB RATIO 1.5 (1.0-2.1); ALBUMIN 4.1 g/dL (3.5-5.0); ALT/SGPT 20 U/L (9-52); AST/SGOT 13 U/L (14-36); BLOOD UREA NITROGEN 11 mg/dl (7-17); CALCIUM 9.8 mg/dL (8.4-10.2); GFR NON-AFRICAN AMERICAN > 60
[2018-10-11 11:33] LABS: B-TYPE NATRIURETIC PEPTIDE 67.9 pg/ml (0-900)
[2018-10-11] MEDS ORDERED: Glucagon Recombinant 1 mg Inj IM PRN (14:31)
[2018-10-11] MEDS ORDERED: Dextrose 50% SYRINGE Inj (50 ml) IV PRN (14:31)
--- NOTE | 2018-10-11 14:31 | CP.PCM.HP ---
History of Present Illness - History of Present Illness History of Present Illness: 73 yo F with medical history of Afib (on Xarelto), HTN, DM, depression, asthma, seizure, presented to ED because of palpitations associated with dypsnea. Pt reports palpitations are intermittent. Reports hot and cold intolerance and diaphoresis that she has been experiencing the past few weeks. She denies fevers, chills, chest pain, dizziness, dysuria, frequency and urgency, melena. ROS negative except for stated above in HPI PMD: Dr. Jaron Major Family history: Father, decreased, heart attack. Mother, decreased, seizures and lung cancer Social history: Social alcohol use, smoking; half pack/week, denies any illicit drug use Medications: see med rec PMH: A-fib, HTN, HLD, seizure disorder, nephrolithiasis, Asthma, uterine CA, osteoarthritis and depression Surgical history: Appendectomy as a child, cholecystectomy 2007, and hysterectomy in 2009 Allergies: N.K.D.A ED: vital signs: 159/81 HR: 69 ; T: 97.6 98% on room air --EKG --BNP: 67.9 --CMP: 138/ 3.9 ; 102/ 29 ; 11/ 0.5 < 159 -- AST/ALT: 13/20 --Troponin --CBC: 5.5 > 14/42.8 < 200 --CXR: No focal consolidation. --Albuterol 2.5 mg INH; Peak Flow Pre/Post Tx Present on Admission - Present on Admission Any Indicators Present on Admission: No Past Patient History - Infectious Disease Hx of Infectious Diseases: None - Past Medical History & Family History Past Medical History?: Yes - Past Social History Alcohol: None Drugs: Denies - CARDIAC Hx Atrial Fibrillation: Yes Hx Cardia Arrhythmia: Yes Hx Hypercholesterolemia: Yes Hx Hypertension: Yes - PULMONARY Hx Asthma: Yes Hx Bronchitis: Yes - NEUROLOGICAL Hx Dementia: Yes (per old chart) Hx Seizures: Yes (last was 1 year ago) - HEENT Hx HEENT Problems: No - RENAL Hx Chronic Kidney Disease: No - HEMATOLOGICAL/ONCOLOGICAL Hx Human Immunodeficiency Virus (HIV): No - INTEGUMENTARY Hx Dermatological Problems: No - MUSCULOSKELETAL/RHEUMATOLOGICAL Hx Musculoskeletal Disorders: Yes (back prob) - GASTROINTESTINAL Hx Gall Bladder Disease: Yes - GENITOURINARY/GYNECOLOGICAL Hx Sexually Transmitted Disorders: No - PSYCHIATRIC Hx Anxiety: Yes Hx Schizophrenia: Yes - SURGICAL HISTORY Hx Appendectomy: Yes Hx Cholecystectomy: Yes Hx Tonsillectomy: Yes - ANESTHESIA Hx Anesthesia: Yes Hx Anesthesia Reactions: No Hx Malignant Hyperthermia: No Meds Allergies/Adverse Reactions: Allergies Allergy/AdvReac Type Severity Reaction Status Date / Time No Known Allergies Allergy Verified 10/11/18 09:23 Physical Exam - Constitutional Appears: Well, Non-toxic, No Acute Distress - Head Exam Head Exam: NORMAL INSPECTION - Eye Exam Eye Exam: Normal appearance - ENT Exam ENT Exam: Mucous Membranes Moist - Neck Exam Neck exam: Positive for: Normal Inspection - Respiratory Exam Respiratory Exam: Clear to Auscultation Bilateral, NORMAL BREATHING PATTERN. absent: Accessory Muscle Use, Chest Wall Tenderness, Decreased Breath Sounds, Prolonged Expiratory Phase, Rales, Rhonchi, Wheezes, Respiratory Distress, Stridor - Cardiovascular Exam Cardiovascular Exam: +S1, +S2. absent: Diastolic murmur, JVD, Systolic Murmur - GI/Abdominal Exam GI & Abdominal Exam: Normal Bowel Sounds, Soft. absent: Distended, Firm, G uarding, Rebound, Rigid, Tenderness - Neurological Exam Neurological exam: Alert, Oriented x3 - Psychiatric Exam Psychiatric exam: Normal Affect, Normal Mood - Skin Skin Exam: Dry, Intact, Normal Color, Warm Results - Vital Signs Recent Vital Signs: Last Vital Signs Temp 97.6 F 10/11/18 09:23 Pulse 64 10/11/18 12:37 Resp 20 10/11/18 09:23 BP 159/81 H 10/11/18 09:23 Pulse Ox 98 10/11/18 12:37 - Labs Result Diagrams: 10/11/18 10:00 10/11/18 10:00 Labs: Laboratory Results - last 24 hr 10/11/18 10/11/18 10:00 10:00 WBC 5.5 RBC 4.69 Hgb 14.0 Hct 42.8 MCV 91.2 MCH 30.0 MCHC 32.8 L RDW 14.5 Plt Count 200 MPV 9.5 Neut % (Auto) 65.0 Lymph % (Auto) 24.1 [place] % (Auto) 9.2 Eos % (Auto) 1.1 Baso % (Auto) 0.6 Neut # (Auto) 3.6 Lymph # (Auto) 1.3 [place] # (Auto) 0.5 Eos # (Auto) 0.1 Baso # (Auto) 0.0 Sodium 138 Potassium 3.9 Chloride 102 Carbon Dioxide 29 Anion Gap 11 BUN 11 Creatinine 0.5 L Est GFR ( Amer) > 60 Est GFR (Non-Af Amer) > 60 Random Glucose 159 H Calcium 9.8 Total Bilirubin 0.4 AST 13 L D ALT 20 Alkaline Phosphatase 50 Troponin I < 0.0120 NT-Pro-B Natriuret Pep 67.9 Total Protein 7.0 Albumin 4.1 Globulin 2.8 Albumin/Globulin Ratio 1.5 Assessment & Plan - Assessment and Plan (Free Text) Assessment: 73 yo F with medical history of Afib (on Xarelto), HTN, DM, depression, asthma, seizure, presented to ED because of palpitations admitted to telemetry for observation as patient has history of Atrial fibrillation. Plan: 1. Palpitations - Admit to telemetry - EKG: regular rhythm - CBC and BMP: WNL - Troponin negative x1 - F/U TSH, Mg, HIV, phos, BMP and Troponin, CBC 2. Atrial fibrillation - EKG: rate controlled - C/W Xarelto, Coreg and amiodarone 3. HTN - controlled - c/w home medication: Losartan and Amlodipine 4. Diabetes - levemir coverage of 15 Units HS - Accu check - c/w atorvastatin - hypoglycemia protocol - Gabapentin 300mg po Q8H Diet: Consistent carb diet 5. Depression - c/w Risperidone 0.5 HS 6. DVT prophylaxis - Xarelto 7. Full code
[2018-10-11] MEDS: Insulin Lispro (humaLOG) 100 Units/ml Inj SC SCH ×2 (18:02→23:01)
[2018-10-11 18:32] VITALS: RESP 18
--- NOTE | 2018-10-11 19:45 | CARD ---
APPROVED REPORT Date of service: 10/11/2018 EKG Measurement Heart [id number] VT [id number] [id number] <Conclusion> Sinus rhythm with 1st degree AV block Rightward axis Septal infarct, age undetermined Abnormal ECG
[2018-10-11] MEDS: FLUTICASONE PROPION/SALMETEROL 113MCG/14MCG 60 PUFF IH SCH (21:42)
[2018-10-11] MEDS ORDERED: Insulin Detemir 100 Units/ml Inj SC SCH (22:00)
[2018-10-12 05:24] LABS: HEMOGLOBIN 12.9 g/dL (12.0-16.0); MEAN CELL VOLUME 90.2 fl (81.0-99.0); MEAN CORPUSCULAR HEMOGLOBIN 29.8 pg (27.0-31.0); MEAN CORPUSCULAR HGB CONC 33.1 g/dL (33.0-37.0); RBC 4.34 Mil/uL (3.80-5.20); RED CELL DISTRIBUTION WIDTH 14.3 % (11.5-14.5); WHITE BLOOD COUNT 5.8 K/uL (4.8-10.8)
[2018-10-12 05:48] LABS: BLOOD UREA NITROGEN 15 mg/dl (7-17); CALCIUM 9.6 mg/dL (8.4-10.2); GFR NON-AFRICAN AMERICAN > 60
[2018-10-12] MEDS: Insulin Lispro (humaLOG) 100 Units/ml Inj SC SCH ×2 (06:35→13:04)
[2018-10-12] MEDS ORDERED: AMLODIPINE PO SCH (09:00)
[2018-10-12] MEDS ORDERED: VALSARTAN PO SCH (09:00)
[2018-10-12] MEDS: FLUTICASONE PROPION/SALMETEROL 113MCG/14MCG 60 PUFF IH SCH (09:04)
[2018-10-12 11:51] VITALS: BP 116/74; PULSE 54; TEMP 98; O2SAT 95
--- NOTE | 2018-10-12 12:33 | CP.PCM.DIS ---
Provider - Provider Date of Admission: 10/11/18 12:33 Attending physician: Jaron Major MD Consults: 10/11/18 18:32 Pastoral Care Referral Routine Comment: Physician Instructions: Reason For Exam: Advance directive information 10/11/18 18:33 Case Management Referral Routine Comment: Physician Instructions: Reason For Exam: Reason for Referral: Discharge Planning Time Spent in preparation of Discharge (in minutes): 30 Diagnosis - Discharge Diagnosis (1) Heart palpitations Status: Acute Comment: - EKG: regular rhythm. - CBC and BMP: WNL. - Troponin negative x3. - Negative labs (2) Atrial fibrillation Status: Chronic Comment: - EKG: rate controlled. - C/W Xarelto, Coreg and amiodarone (3) Hypertension Status: Chronic Comment: - controlled. - c/w home medication: Losartan and Amlodipine (4) Insulin dependent diabetes mellitus Status: Chronic Comment: - levemir coverage of 15 Units HS;. - c/w atorvastatin. - Gabapentin 300mg po Q8H. Diet: Consistent carb diet Hospital Course - Lab Results Lab Results: Most Recent Lab Values WBC 5.8 K/uL (4.8-10.8) 10/12/18 04:40 RBC 4.34 Mil/uL (3.80-5.20) 10/12/18 04:40 Hgb 12.9 g/dL (12.0-16.0) 10/12/18 04:40 Hct 39.1 % (34.0-47.0) 10/12/18 04:40 MCV 90.2 fl (81.0-99.0) 10/12/18 04:40 MCH 29.8 pg (27.0-31.0) 10/12/18 04:40 MCHC 33.1 g/dL (33.0-37.0) 10/12/18 04:40 RDW 14.3 % (11.5-14.5) 10/12/18 04:40 Plt Count 180 K/uL (130-400) 10/12/18 04:40 MPV 9.5 fl (7.2-11.7) 10/11/18 10:00 Neut % (Auto) 65.0 % (50.0-75.0) 10/11/18 10:00 Lymph % (Auto) 24.1 % (20.0-40.0) 10/11/18 10:00 [place] % (Auto) 9.2 % (0.0-10.0) 10/11/18 10:00 Eos % (Auto) 1.1 % (0.0-4.0) 10/11/18 10:00 Baso % (Auto) 0.6 % (0.0-2.0) 10/11/18 10:00 Neut # (Auto) 3.6 K/uL (1.8-7.0) 10/11/18 10:00 Lymph # (Auto) 1.3 K/uL (1.0-4.3) 10/11/18 10:00 [place] # (Auto) 0.5 K/uL (0.0-0.8) 10/11/18 10:00 Eos # (Auto) 0.1 K/uL (0.0-0.7) 10/11/18 10:00 Baso # (Auto) 0.0 K/uL (0.0-0.2) 10/11/18 10:00 Sodium 139 mmol/l (132-148) 10/12/18 04:40 Potassium 3.8 MMOL/L (3.6-5.0) 10/12/18 04:40 Chloride 104 mmol/L (98-107) 10/12/18 04:40 Carbon Dioxide 30 mmol/L (22-30) 10/12/18 04:40 Anion Gap 9 (10-20) L 10/12/18 04:40 BUN 15 mg/dl (7-17) 10/12/18 04:40 Creatinine 0.6 mg/dl (0.7-1.2) L 10/12/18 04:40 Est GFR ( Amer) > 60 10/12/18 04:40 Est GFR (Non-Af Amer) > 60 10/12/18 04:40 POC Glucose (mg/dL) 118 mg/dL (65-110) H 10/12/18 05:12 Random Glucose 98 mg/dL (65-105) 10/12/18 04:40 Calcium 9.6 mg/dL (8.4-10.2) 10/12/18 04:40 Total Bilirubin 0.4 mg/dl (0.2-1.3) 10/11/18 10:00 AST 13 U/L (14-36) L D 10/11/18 10:00 ALT 20 U/L (9-52) 10/11/18 10:00 Alkaline Phosphatase 50 U/L (38-126) 10/11/18 10:00 Troponin I < 0.0120 ng/mL (0.00-0.120) 10/12/18 04:40 NT-Pro-B Natriuret Pep 67.9 pg/ml (0-900) 10/11/18 10:00 Total Protein 7.0 G/DL (6.3-8.2) 10/11/18 10:00 Albumin 4.1 g/dL (3.5-5.0) 10/11/18 10:00 Globulin 2.8 gm/dL (2.2-3.9) 10/11/18 10:00 Albumin/Globulin Ratio 1.5 (1.0-2.1) 10/11/18 10:00 - Hospital Course Hospital Course: 73 yo F with medical history of Afib (on Xarelto), HTN, DM, depression, asthma, seizure, presented to ED because of palpitations associated with dypsnea. Admitted to telemetry for observation given history of Afib. Palpitations resolved during her hospital stay. Patient was hemodynamically stable. No events noted on surveillance monitor. Patient to be discharged, schedule appointment with Dr. Major in 2 weeks. Script given for lab work to be done before she sees Dr. Major. Discharge Exam - Head Exam Head Exam: ATRAUMATIC, NORMAL INSPECTION, NORMOCEPHALIC - Eye Exam Eye Exam: Normal appearance - ENT Exam ENT Exam: Mucous Membranes Moist - Respiratory Exam Respiratory Exam: Clear to PA & Lateral, NORMAL BREATHING PATTERN, UNREMARKABLE. absent: Accessory Muscle Use, Chest Wall Tenderness, Decreased Breath Sounds, Prolonged Expiratory Phase, Rales, Rhonchi, Wheezes, Respiratory Distress, Stridor - Cardiovascular Exam Cardiovascular Exam: Irregular Rhythm, +S1, +S2. absent: Diastolic murmur, JVD, Systolic Murmur - GI/Abdominal Exam GI & Abdominal Exam: Normal Bowel Sounds, Soft, Unremarkable. absent: Distended, Firm, Rebound, Rigid, Tenderness - Extremities Exam Extremities exam: full ROM, normal capillary refill, normal inspection - Neurological Exam Neurological exam: Alert, Oriented x3 - Psychiatric Exam Psychiatric exam: Normal Affect, Normal Mood - Skin Skin Exam: Dry, Intact, Normal Color, Warm Discharge Plan - Follow Up Plan Condition: STABLE Disposition: HOME/ ROUTINE Patient education suggested?: Yes Instructions: Palpitations (DC) Additional Instructions: follow up with Dr. Major in 2 weeks. Referrals: [facility] [Outside]
== END 2018-10-12 13:55 | disposition home or self-care (01) ==
LOC: H.ER 09:11 → H.ERHOLD 12:33 → H.TEL 15:20
PROVIDERS: ADMIT Family Medicine; ATTEND Family Medicine
DX: I48.91 Unspecified atrial fibrillation (principal); F41.9 Anxiety disorder, unspecified; F03.90 Unspecified dementia, unspecified severity, without behavioral disturbance, psychotic disturbance, mood disturbance, and anxiety; I69.351 Hemiplegia and hemiparesis following cerebral infarction affecting right dominant side; E11.9 Type 2 diabetes mellitus without complications; E78.00 Pure hypercholesterolemia, unspecified; E78.5 Hyperlipidemia, unspecified; F17.210 Nicotine dependence, cigarettes, uncomplicated; F20.9 Schizophrenia, unspecified; G40.909 Epilepsy, unspecified, not intractable, without status epilepticus; I10 Essential (primary) hypertension; J44.9 Chronic obstructive pulmonary disease, unspecified; Z79.01 Long term (current) use of anticoagulants; Z79.4 Long term (current) use of insulin; Z90.49 Acquired absence of other specified parts of digestive tract; Z85.43 Personal history of malignant neoplasm of ovary; Z85.42 Personal history of malignant neoplasm of other parts of uterus

== ENCOUNTER 2018-10-27 11:30 | Emergency (ER) | payer MEDICARE, OTHER ==
[2018-10-27 11:31] VITALS: BMI 35.4
[2018-10-27 11:35] VITALS: TEMP 97.8
[2018-10-27] MEDS ORDERED: Sodium Chloride 0.9% 1,000 ML IV STA (13:07)
[2018-10-27 13:23] LABS: SQUAMOUS EPITHIAL 1 /hpf (0-5); URINE BACTERIA RARE (<OCC); URINE BILIRUBIN NEGATIVE (NEGATIVE); URINE BLOOD NEGATIVE (NEGATIVE); URINE CLARITY SLIGHTY-CLOUDY (Clear); URINE COLOR AMBER (YELLOW); URINE GLUCOSE (UA) NEG (NEGATIVE); URINE HYALINE CAST 0-2 /hpf (0-2); URINE LEUKOCYTE ESTERASE NEG Leu/uL (Negative); URINE PROTEIN 100 mg/dL (NEGATIVE)
[2018-10-27 13:40] LABS: BASO # 0.1 K/uL (0.0-0.2); BASO % 0.8 % (0.0-2.0); EOS # 0.1 K/uL (0.0-0.7); EOS % 0.8 % (0.0-4.0); HEMOGLOBIN 13.3 g/dL (12.0-16.0); LYMPH # 1.9 K/uL (1.0-4.3); LYMPH % 24.5 % (20.0-40.0); MEAN CELL VOLUME 91.5 fl (81.0-99.0); MEAN CORPUSCULAR HEMOGLOBIN 30.2 pg (27.0-31.0); MEAN PLATELET VOLUME 9.2 fl (7.2-11.7); MONO # 0.7 K/uL (0.0-0.8); MONO % 8.7 % (0.0-10.0); NEUT # 4.9 K/uL (1.8-7.0); NEUT % 65.2 % (50.0-75.0); NRBC % 0.1 % (0.0-0.0); RBC 4.42 Mil/uL (3.80-5.20); WHITE BLOOD COUNT 7.5 K/uL (4.8-10.8)
[2018-10-27 13:49] LABS: ALB/GLOB RATIO 1.6 (1.0-2.1); ALBUMIN 4.2 g/dL (3.5-5.0); ALT/SGPT 15 U/L (9-52); AST/SGOT 16 U/L (14-36); BLOOD UREA NITROGEN 15 mg/dl (7-17); CALCIUM 9.6 mg/dL (8.4-10.2); GFR NON-AFRICAN AMERICAN > 60
[2018-10-27] MEDS ORDERED: cefTRIAXone (Rocephin) 1 gm Inj ONE (16:07)
--- NOTE | 2018-10-27 16:21 | ED PDOC ---
HPI: Female Pain Time Seen by Provider: 10/27/18 11:57 Chief Complaint (Nursing): Female Genitourinary Chief Complaint (Provider): Burning on urination History Per: Patient History/Exam Limitations: no limitations Onset/Duration Of Symptoms: Days Current Symptoms Are (Timing): Still Present Additional Complaint(s): 73 yo female with HTN, DM and sciatica presents for evaluation of burning on urination for 3 days. Pt reports suprapubic pain. Pt states she is also having left lower back pain which she states is consistent with her normal sciatic pain. Pt states she has been taking pyridium for pain and her gabapentin for her sciatica. Pt states she felt nauseous yesterday but ate normally today. No fever/chills. Past Medical History Reviewed: Historical Data, Nursing Documentation, Vital Signs Vital Signs: Last Vital Signs Temp 97.8 F 10/27/18 11:34 Pulse 64 10/27/18 11:34 Resp 16 10/27/18 11:34 BP 166/78 H 10/27/18 12:19 Pulse Ox 96 10/27/18 11:34 - Medical History PMH: Anxiety, Asthma, Atrial Fibrillation, Back Problems, Bronchitis, Cardia Arrhythmia, CVA (with right-sided deficit), Diabetes, Gall Bladder Disease, HTN, Hypercholesterolemia, Malignancy (ovarian cancer x2), Schizophrenia, Seizures (last was 1 year ago) Denies: Hepatitis, HIV, Chronic Kidney Disease, Sexually Transmitted Disease - Surgical History Surgical History: Appendectomy, Cholecystectomy, Tonsillectomy - Family History Family History: States: Unknown Family Hx - Living Arrangements Living Arrangements: With Family - Social History Current smoker - smoking cessation education provided: No Alcohol: None Drugs: Denies - Immunization History Hx Influenza Vaccination: Yes - Home Medications Home Medications: Ambulatory Orders Medication Instructions Recorded Amiodarone [Cordarone] 200 mg PO DAILY 06/02/16 Amlodipine/Valsartan [Exforge 1 tab PO DAILY 06/02/16 5-160 mg Tablet] Atorvastatin Calcium 10 mg PO DAILY 06/02/16 Carvedilol [Coreg] 25 mg PO Q12 06/02/16 Gabapentin [Neurontin] 300 mg PO Q8 06/02/16 Insulin Glargine, Recombina 5 unit SC DAILY 06/02/16 [Lantus] Cyanocobalamin [Vitamin B12 1000 1,000 mcg PO DAILY 11/23/16 mcg Tab] Insulin Lispro [humALOG] 15 unit SC BID 11/23/16 Fluticasone/Salmeterol 250/50 1 puff IH Q12 12/02/17 [Advair Diskus 250/50] Rivaroxaban [Xarelto] 20 mg PO HS #0 12/04/17 MetFORMIN [glucoPHAGE] 1,000 mg PO BID 10/11/18 Risperidone [Risperdal] 0.5 mg PO HS 10/11/18 Sertraline [Zoloft] 50 mg PO DAILY 10/11/18 Nitrofurantoin Macrocrystals 100 mg PO BID #10 cap 10/27/18 [Macrobid] - Allergies Allergies/Adverse Reactions: Allergies Allergy/AdvReac Type Severity Reaction Status Date / Time No Known Allergies Allergy Verified 10/11/18 09:23 Review of Systems ROS Statement: Except As Marked, All Systems Reviewed And Found Negative Constitutional: Negative for: Fever, Chills Cardiovascular: Negative for: Chest Pain, Palpitations Respiratory: Negative for: Cough Gastrointestinal: Positive for: Nausea, Abdominal Pain. Negative for: Vomiting, Diarrhea Genitourinary Female: Positive for: Dysuria, Frequency. Negative for: Incontinence, Hematuria, Vaginal Discharge, Vaginal Bleeding Physical Exam - Reviewed Nursing Documentation Reviewed: Yes Vital Signs Reviewed: Yes - Physical Exam Appears: Positive for: Well, Non-toxic, No Acute Distress Head Exam: Positive for: ATRAUMATIC, NORMAL INSPECTION, NORMOCEPHALIC Skin: Positive for: Normal Color, Warm, DRY Eye Exam: Positive for: Normal appearance ENT: Positive for: Normal ENT Inspection Neck: Positive for: Normal, Painless ROM Cardiovascular/Chest: Positive for: Regular Rate, Rhythm Respiratory: Positive for: CNT, Normal Breath Sounds Gastrointestinal/Abdominal: Positive for: Normal Exam, Soft, Tenderness (Mild suprapubic), Other ((-) CVA tenderness ). Negative for: Guarding Back: Positive for: Normal Inspection Extremity: Positive for: Normal ROM Neurological/Psych: Positive for: Awake, Alert, Normal Tone - Laboratory Results Result Diagrams: 10/27/18 13:18 10/27/18 13:18 Lab Results: Total Bilirubin 0.4 mg/dl (0.2-1.3) 10/27/18 13:18 AST 16 U/L (14-36) 10/27/18 13:18 ALT 15 U/L (9-52) 10/27/18 13:18 Alkaline Phosphatase 42 U/L (38-126) 10/27/18 13:18 Total Protein 6.8 G/DL (6.3-8.2) 10/27/18 13:18 Albumin 4.2 g/dL (3.5-5.0) 10/27/18 13:18 Globulin 2.6 gm/dL (2.2-3.9) 10/27/18 13:18 Albumin/Globulin Ratio 1.6 (1.0-2.1) 10/27/18 13:18 Urine Color [place] (YELLOW) 10/27/18 12:45 Urine Clarity Slighty-cloudy (Clear) 10/27/18 12:45 Urine pH 6.0 (5.0-8.0) 10/27/18 12:45 Ur Specific [place] 1.018 (1.003-1.030) 10/27/18 12:45 Urine Protein 100 mg/dL (NEGATIVE) 10/27/18 12:45 Urine Glucose (UA) Neg mg/dL (NEGATIVE) 10/27/18 12:45 Urine Ketones Negative mg/dL (NEGATIVE) 10/27/18 12:45 Urine Blood Negative (NEGATIVE) 10/27/18 12:45 Urine Nitrate Positive (NEGATIVE) H 10/27/18 12:45 Urine Bilirubin Negative (NEGATIVE) 10/27/18 12:45 Urine Urobilinogen 4.0 mg/dL (0.2-1.0) H 10/27/18 12:45 Ur Leukocyte Esterase Neg Gage/uL (Negative) 10/27/18 12:45 Urine RBC (Auto) 2 /hpf (0-3) 10/27/18 12:45 Urine Microscopic WBC 2 /hpf (0-5) 10/27/18 12:45 Ur Squamous Epith Cells 1 /hpf (0-5) 10/27/18 12:45 Urine Bacteria Rare (<OCC) 10/27/18 12:45 Hyaline Casts 0-2 /hpf (0-2) 10/27/18 12:45 - ECG O2 Sat by Pulse Oximetry: 96 Pulse Ox Interpretation: Normal - Progress Re-evaluation Time: 16:02 (Requesting food) Disposition - Clinical Impression Clinical Impression: UTI (urinary tract infection) - Patient ED Disposition Is Patient to be Admitted: No - Disposition Referrals: Jaron Major MD [Primary Care Provider] - Disposition: Routine/Home Disposition Time: 16:24 Condition: GOOD Prescriptions: Nitrofurantoin Macrocrystals [Macrobid] 100 mg PO BID #10 cap Instructions: Urinary Tract Infections in Adults
[2018-10-27 17:31] VITALS: BP 153/73; PULSE 62; RESP 18; O2SAT 100
== END 2018-10-27 16:43 | disposition home or self-care (01) ==
LOC: H.ER 11:30 → SUPCPDRO 11:30 → H.ER 16:43
DX: N39.0 Urinary tract infection, site not specified (principal); J45.909 Unspecified asthma, uncomplicated; E11.9 Type 2 diabetes mellitus without complications; Z86.59 Personal history of other mental and behavioral disorders; I10 Essential (primary) hypertension; Z79.4 Long term (current) use of insulin; Z85.43 Personal history of malignant neoplasm of ovary; Z86.73 Personal history of transient ischemic attack (TIA), and cerebral infarction without residual deficits
CPT/HCPCS: 80053; 81003; 83605; 85025; 87040; 87086; 96365; 96375; 99283; J0696; J2270; J7030